=== PATIENT | male | born 1930 | race Hispanic/Latino ===

== ENCOUNTER 2019-01-25 19:59 | Inpatient (IN) | payer MEDICARE ==
[~2019-01-25 19:59] MED LIST: Piperacillin/Tazobact 3.375 gm 100 ML IVPB SCH
[2019-01-25 20:24] VITALS: BMI 22.3
[2019-01-25 21:08] LABS: ALB/GLOB RATIO 0.8 (1.1-1.8); ALBUMIN 3.2 g/dL (3.0-4.8); ALT/SGPT 14 U/L (7-56); AST/SGOT 30 U/L (17-59); BLOOD UREA NITROGEN 106 mg/dL (7-21); CALCIUM 9.4 mg/dL (8.4-10.5); GFR NON-AFRICAN AMERICAN > 60
[2019-01-25 21:13] LABS: BASO # 0.02 K/mm3 (0.0-2.0); BASO % 0.1 % (0.0-3.0); HEMOGLOBIN 8.6 g/dL (14.0-18.0); LYMPH # 1.3 (1.2-3.4); LYMPH % 4.7 % (22.0-35.0); MEAN CELL VOLUME 99.3 fl (80.0-105.0); MEAN CORPUSCULAR HEMOGLOBIN 32.2 pg (25.0-35.0); MEAN CORPUSCULAR HGB CONC 32.5 g/dl (31.0-37.0); MEAN PLATELET VOLUME 9.1 fl (7.0-11.0); MONO # 1.2 (0.1-0.6); MONO % 4.7 % (1.0-6.0); PLATELET COUNT 403 10^3/uL (120.0-450.0); RBC 2.67 10^6/uL (3.5-6.1); RED CELL DISTRIBUTION WIDTH 14.8 % (11.5-14.5); URINE BILIRUBIN NEGATIVE (NEGATIVE); URINE BLOOD NEGATIVE (NEGATIVE); URINE GLUCOSE (UA) NEGATIVE (NEGATIVE); URINE LEUKOCYTE ESTERASE NEGATIVE Leu/uL (NEGATIVE); URINE PROTEIN NEGATIVE mg/dL (<30 mg/dL); URINE UROBILINOGEN 0.2 E.U./dL (<1 E.U./dL)
[2019-01-25 21:16] LABS: URINE APPEARANCE CLEAR (CLEAR); URINE COLOR LIGHT YELLOW (YELLOW)
[2019-01-25 21:17] LABS: INR 1.33; PARTIAL THROMBOPLASTIN TIME 36.5 Seconds (26.9-38.3); PROTHROMBIN TIME 14.8 SECONDS (9.4-12.5)
[2019-01-25 21:18] LABS: WHITE BLOOD COUNT 26.5 10^3/uL (4.5-11.0)
[2019-01-25 21:20] LABS: TROPONIN I 0.02 ng/mL
--- NOTE | 2019-01-25 21:29 | ED PDOC ---
Arrival/HPI - General Chief Complaint: GI Problem Time Seen by Provider: 01/25/19 20:15 Historian: [facility] - History of Present Illness Narrative History of Present Illness (Text): 01/25/19 20:20 Luisito Mays is an 88 year old male, whose past medical history includes dysphagia s/p PEG tube, CVA, atrial fibrillation, CAD, hypertension, COPD, BPH, hypothyroidism, seizures, and depression, who presents to the ED transferred from skilled nursing for dark residual from PEG tube. As per skilled nursing, patient had dark gastric residual from his PEG tube and shortness of breath. Limited HPI and ROS secondary to patient's acuity of condition/dementia.Patient with DNR/DNI status. Symptom Onset: Gradual Symptom Course: Unchanged Activities at Onset: Light Context: Home (skilled nursing) Past Medical History - Provider Review Nursing Documentation Reviewed: Yes - Infectious Disease Hx of Infectious Diseases: None - Cardiac Hx Cardiac Disorders: Yes Hx Atrial Fibrillation: Yes Hx Hypertension: Yes - Pulmonary Hx Respiratory Disorders: Yes Hx Chronic Obstructive Pulmonary Disease (COPD): Yes - Neurological Hx Neurological Disorder: Yes HX Cerebrovascular Accident: Yes Hx Dementia: Yes Hx Seizures: Yes Other/Comment: dysphagia - HEENT Hx HEENT Disorder: No - Renal Hx Renal Disorder: No - Endocrine/Metabolic Hx Endocrine Disorders: Yes Hx Hypothyroidism: Yes - Hematological/Oncological Hx Blood Disorders: No - Integumentary Hx Dermatological Disorder: No - Musculoskeletal/Rheumatological Hx Musculoskeletal Disorders: No - Gastrointestinal Hx Gastrointestinal Disorders: Yes Hx Bowel Surgery: Yes (PEG tube) HX Swallowing Problems: Yes (dysphagia) - Genitourinary/Gynecological Hx Genitourinary Disorders: Yes - Psychiatric Hx Psychophysiologic Disorder: Yes Hx Depression: Yes Hx Substance Use: No - Surgical History Other/Comment: PEG tube - Anesthesia Hx Anesthesia: Yes Hx Anesthesia Reactions: No Hx Malignant Hyperthermia: No Family/Social History - Physician Review Nursing Documentation Reviewed: Yes Family/Social History: Unknown Family HX Smoking Status: Unknown If Ever Smoked Hx Alcohol Use: No Hx Substance Use: No Allergies/Home Meds Allergies/Adverse Reactions: Allergies No Known Allergies Allergy (Unverified 01/25/19 20:23) Home Medications: Home Meds Medication Instructions Recorded Confirmed Unobtainable 01/25/19 01/25/19 Review of Systems - Review of Systems Systems not reviewed;Unavailable: Acuity of Condition Respiratory: SOB Physical Exam Vital Signs Reviewed: Yes Vital Signs Temp Pulse Resp BP Pulse Ox 01/25/19 20:10 99.7 F H 115 H 18 82/42 L 95 Temperature: Febrile Blood Pressure: Hypotensive Pulse: Tachycardic Pain Distress: None Mental Status: Positive for: Lethargic - Systems Exam Head: Present: Atraumatic, Normocephalic Pupils: Present: PERRL Ears: Present: Normal Mouth: Present: Dry Pharnyx: Present: Normal Nose (External): Present: Atraumatic Neck: Present: Normal Range of Motion. No: Meningeal Signs Respiratory/Chest: Present: Rhonchi Cardiovascular: Present: Tachycardic Abdomen: Present: Normal Bowel Sounds, Other (PEG tune in place/clear,no dark contents noted). No: Tenderness, Distention, Peritoneal Signs, Rebound, Guarding Upper Extremity: Present: Normal Inspection. No: Cyanosis, Edema Lower Extremity: Present: Normal Inspection. No: Edema Medical Decision Making ED Course and Treatment: 01/25/19 20:20 Impression: 88 year old male sent from skilled nursing for dark residual from PEG tube and shortness of breath. Plan: -- EKG -- Chest X-ray -- Labs, cardiac enzymes, VBG, blood cultures -- Urinalysis, urine cultures -- Lactated Ringer's -- Reassess and disposition Progress Notes: Reviewed EKG, accelerated junctional rhythm at 115 bpm. Incomplete RBBB. Non- specific ST changes. 01/25/19 20:[address] Espinosa, who is aware and agrees with plan. Accepts pt in to his service. Requests ICU consult. 01/25/19 21:22 Labs reviewed, WBC: 26.5. Pt tachycardic, hypotensive. Code Sepsis called. 01/25/19 21:30 Case discussed with biomedical engineering director stationary engineer apprentice, who is aware and agrees with plan. 01/25/19 21:[address] Seals, patternator, who agrees to evaluate pt for ICU admission. 01/25/19 22:[address] Seals presej in ED to evaluate pt. Pt will be admitted to the ICU for sepsis and hypotension. 01/25/19 22:30 Chest X-ray: LUNGS: Air space opacity is seen in the mid-lower lung arnold bilaterally compatible with extensive bilateral pneumonia. PLEURAL SPACES: No evidence of pleural effusion or pneumothorax. MEDIASTINUM: The cardiomediastinal silhouette is within normal limits. A right dual-lead transvenous pacemaker device is present. Residual left pacemaker wires are noted as well. There is atheromatous plaquing seen within the aortic arch. BONES: No acute osseous abnormality. IMPRESSION: 1. Extensive bilateral pneumonia. 2. A dual-lead right transvenous pacemaker device is present. Residual left pacemaker wires are noted. Electronically signed on Jan 25, 2019 10:25:44 PM EDT by: Jones Joiner M.D., M.B.A., Certified By [employer] Trained MRI and CT Specialis - Critical Care Critical Care Minutes: 30 minutes - Lab Interpretations Lab Results: PT 14.8 SECONDS (9.4-12.5) H 01/25/19 20:40 INR 1.33 01/25/19 20:40 APTT 36.5 Seconds (26.9-38.3) 01/25/19 20:40 Troponin I 0.02 ng/mL 01/25/19 20:40 Total Bilirubin 0.4 mg/dL (0.2-1.3) 01/25/19 20:40 AST 30 U/L (17-59) 01/25/19 20:40 ALT 14 U/L (7-56) 01/25/19 20:40 Alkaline Phosphatase 53 U/L (38-126) 01/25/19 20:40 Total Protein 7.1 g/dL (5.8-8.3) 01/25/19 20:40 Albumin 3.2 g/dL (3.0-4.8) 01/25/19 20:40 Globulin 3.8 gm/dL 01/25/19 20:40 Albumin/Globulin Ratio 0.8 (1.1-1.8) L 01/25/19 20:40 Urine Color Light yellow (YELLOW) 01/25/19 20:40 Urine Appearance Clear (CLEAR) 01/25/19 20:40 Urine pH 7.0 (4.7-8.0) 01/25/19 20:40 Ur Specific [place] 1.010 (1.005-1.035) 01/25/19 20:40 Urine Protein Negative mg/dL (<30 mg/dL) 01/25/19 20:40 Urine Glucose (UA) Negative mg/dL (NEGATIVE) 01/25/19 20:40 Urine Ketones Negative mg/dL (NEGATIVE) 01/25/19 20:40 Urine Blood Negative (NEGATIVE) 01/25/19 20:40 Urine Nitrate Negative (NEGATIVE) 01/25/19 20:40 Urine Bilirubin Negative (NEGATIVE) 01/25/19 20:40 Urine Urobilinogen 0.2 E.U./dL (<1 E.U./dL) 01/25/19 20:40 Ur Leukocyte Esterase Negative Jacey/uL (NEGATIVE) 01/25/19 20:40 I have reviewed the lab results: Yes - RAD Interpretation Radiology Orders: 01/25/19 20:24 CHEST PORTABLE [RAD] Stat Operations Vice President: Radiologist - EKG Interpretation Interpreted by ED Physician: Yes Type: 12 lead EKG - Medication Orders Current Medication Orders: Discontinued Medications Lactated Ringer's 2,180 ml/ IV (SUPPLIES) 2,180 mls @ 4,354.5 mls/hr IV ONCE ONE Stop: 01/25/19 20:54 Last Admin: 01/25/19 20:45 Dose: 4,354.5 mls/hr eMAR Start Stop Document 01/25/19 20:45 JOL (Rec: 01/25/19 21:24 JOL [id number]) Intravenous Solution Start Date 01/25/19 Start Time 20:45 End Date 01/25/19 End time 21:45 Total Infusion Time 60 - Scribe Statement The provider has reviewed the documentation as recorded by the Turner Strange Provider Scribe Attestation: All medical record entries made by the Turner were at my direction and personally dictated by me. I have reviewed the chart and agree that the record accurately reflects my personal performance of the history, physical exam, medical decision making, and the department course for this patient. I have also personally directed, reviewed, and agree with the discharge instructions and disposition. Disposition/Present on Arrival - Present on Arrival Any Indicators Present on Arrival: No History of DVT/PE: No History of Uncontrolled Diabetes: No Urinary Catheter: No History of Decub. Ulcer: Yes History Surgical Site Infection Following: None - Disposition Have Diagnosis and Disposition been Completed?: Yes Diagnosis: Sepsis, Hypotension, Pneumonia Disposition: HOSPITALIZED Disposition Time: 22:17 Patient Plan: Admission Patient Problems: Current Active Problems Problem Status Onset Hypotension Acute Pneumonia Acute Sepsis Acute Condition: GUARDED
[2019-01-25] MEDS ORDERED: Piperacill/Tazo 4.5gm in NS 4.5 GM/100 ML BAG IVPB STA (21:32)
[2019-01-25] MEDS ORDERED: Vancomycin 1gm in NS 250ml 1 GM/250 ML BAG IVPB STA (21:32)
[2019-01-25] MEDS ORDERED: Albuterol-Ipratrop 3 mg / 0.5 (3 ml) UD IH STA (21:35)
[2019-01-25] MEDS ORDERED: Albuterol-Ipratrop 3 mg / 0.5 (3 ml) UD ONE (21:38)
[2019-01-25] MEDS ORDERED: Sodium Chloride 0.9% 1,000 ML IV SCH (22:15)
[2019-01-25 22:26] LABS: BAND 9 % (0-2); LYMPHOCYTE 7 % (22.0-35.0); MONOCYTE 3 % (1.0-6.0); NEUTROPHIL 81 % (50.0-70.0)
[2019-01-25 22:27] LABS: PLATELET ESTIMATE NORMAL (NORMAL)
--- NOTE | 2019-01-25 22:28 | CP.PCM.CON ---
<Marquis Clark - Last Filed: 01/26/19 00:18> History of Present Illness - History of Present Illness History of Present Illness: Marquis Clark DO, PGY-2: ICU Consult Note for Dr. Seals 88 year old male with a past medical history of dementia, dysphagia, atrial fibrillation, sacral ulcer who was brought in from [facility] because of coffee ground substance derived from PEG tube. Patient is non-verbal at baseline. History was provided by ER nurse who spoke with son. The patient's mcfp medications are not with him also. The patient is arousable to touch and appears pale. Labs are notable for a white count of 26,000 and a hemoglobin of 8.6. He is DNR/DNI status. ICU was consulted for septic shock, likely from hemorrhage and infection. At the time of my examination, the patient is not responsive, but his baseline mental status is apparently unchanged. The son reportedly stated he looks, "more sleepy than usual." Otherwise, a 12 point ROS is unobtainable secondary to the patient's dementia and non-verbal status. PMH: atrial fibrillation, dementia, dysphagia, failure to thrive, sacral ulcer PSH: Unknown Allergies: NKA Social: Unknown Review of Systems - Review of Systems All systems: reviewed and no additional remarkable complaints except (as per HPI) Past Patient History - Infectious Disease Hx of Infectious Diseases: None - Past Social History Smoking Status: Unknown If Ever Smoked - CARDIAC Hx Cardiac Disorders: Yes Hx Atrial Fibrillation: Yes Hx Hypertension: Yes - PULMONARY Hx Respiratory Disorders: Yes Hx Chronic Obstructive Pulmonary Disease (COPD): Yes - NEUROLOGICAL Hx Neurological Disorder: Yes HX Cerebrovascular Accident: Yes Hx Dementia: Yes Hx Seizures: Yes Other/Comment: dysphagia - HEENT Hx HEENT Problems: No - RENAL Hx Chronic Kidney Disease: No - ENDOCRINE/METABOLIC Hx Endocrine Disorders: Yes Hx Hypothyroidism: Yes - HEMATOLOGICAL/ONCOLOGICAL Hx Blood Disorders: No - INTEGUMENTARY Hx Dermatological Problems: No - MUSCULOSKELETAL/RHEUMATOLOGICAL Hx Musculoskeletal Disorders: No - GASTROINTESTINAL Hx Gastrointestinal Disorders: Yes Hx Bowel Surgery: Yes (PEG tube) HX Swallowing Problems: Yes (dysphagia) - GENITOURINARY/GYNECOLOGICAL Hx Genitourinary Disorders: Yes - PSYCHIATRIC Hx Psychophysiologic Disorder: Yes Hx Depression: Yes Hx Substance Use: No - SURGICAL HISTORY Other/Comment: PEG tube - ANESTHESIA Hx Anesthesia: Yes Hx Anesthesia Reactions: No Hx Malignant Hyperthermia: No Meds Allergies/Adverse Reactions: Allergies Allergy/AdvReac Type Severity Reaction Status Date / Time No Known Allergies Allergy Unverified 01/25/19 20:23 - Medications Medications: Current Medications Vancomycin HCl (Vancomycin 1gm) 1 gm in 250 mls @ 167 mls/hr IVPB STAT STA; Protocol Stop: 01/25/19 23:01 Last Admin: 01/25/19 21:58 Dose: 167 mls/hr Sodium Chloride (Sodium Chloride 0.45%) 1,000 mls @ 60 mls/hr IV .[id number] RICCO Sodium Chloride (Sodium Chloride 0.9%) 1,000 mls @ 50 mls/hr IV .Q20H RICCO Vancomycin HCl (Vancomycin 1gm) 1 gm in 250 mls @ 167 mls/hr IVPB DAILY RICCO; Protocol Piperacillin Sod/Tazobactam Sod (Zosyn 3.375 In Ns 100ml) 100 mls @ 25 mls/hr IVPB Q8 RICCO; Protocol Stop: 01/26/19 17:59 Levalbuterol HCl (Xopenex) 1.25 mg IH [id number] RICCO Pantoprazole Sodium (Protonix Inj) 40 mg IVP Q12 RICCO Physical Exam - Constitutional Appears: Chronically Ill - Head Exam Head Exam: ATRAUMATIC, NORMOCEPHALIC Additional comments: temporal wasting noted - Eye Exam Eye Exam: EOMI, Normal appearance - ENT Exam ENT Exam: Mucous Membranes Dry - Neck Exam Neck exam: Positive for: Normal Inspection - Respiratory Exam Respiratory Exam: Rales (some), NORMAL BREATHING PATTERN - Cardiovascular Exam Cardiovascular Exam: Tachycardia, +S1, +S2 - GI/Abdominal Exam GI & Abdominal Exam: Distended (mildly). absent: Rebound, Rigid - Extremities Exam Extremities exam: Positive for: normal inspection. Negative for: calf tenderness - Neurological Exam Additional comments: demented - Psychiatric Exam Psychiatric exam: Normal Affect, Normal Mood - Skin Skin Exam: Pallor Results - Vital Signs Recent Vital Signs: Last Vital Signs Temp 99.7 F H 01/25/19 20:10 Pulse 115 H 01/25/19 20:10 Resp 18 01/25/19 20:10 BP 82/42 L 01/25/19 20:10 Pulse Ox 95 01/25/19 20:10 - Labs Result Diagrams: 01/25/19 20:40 01/25/19 20:40 Labs: Laboratory Results - last 24 hr 01/25/19 01/25/19 01/25/19 20:40 20:40 20:40 WBC 26.5 H* RBC 2.67 L Hgb 8.6 L Hct 26.5 L MCV 99.3 MCH 32.2 MCHC 32.5 RDW 14.8 H Plt Count 403 MPV 9.1 Neut % (Auto) 90.5 H Lymph % (Auto) 4.7 L [place] % (Auto) 4.7 Eos % (Auto) 0.0 L Baso % (Auto) 0.1 Lymph # (Auto) 1.3 [place] # (Auto) 1.2 H Eos # (Auto) 0.0 Baso # (Auto) 0.02 Absolute Neuts (auto) 24.02 H PT 14.8 H INR 1.33 APTT 36.5 Sodium Potassium Chloride Carbon Dioxide Anion Gap BUN Creatinine Est GFR ( Amer) Est GFR (Non-Af Amer) Random Glucose Calcium Total Bilirubin AST ALT Alkaline Phosphatase Lactate Dehydrogenase Total Creatine Kinase Troponin I Total Protein Albumin Globulin Albumin/Globulin Ratio Urine Color Light yellow Urine Appearance Clear Urine pH 7.0 Ur Specific [place] 1.010 Urine Protein Negative Urine Glucose (UA) Negative Urine Ketones Negative Urine Blood Negative Urine Nitrate Negative Urine Bilirubin Negative Urine Urobilinogen 0.2 Ur Leukocyte Esterase Negative 01/25/19 20:40 WBC RBC Hgb Hct MCV MCH MCHC RDW Plt Count MPV Neut % (Auto) Lymph % (Auto) [place] % (Auto) Eos % (Auto) Baso % (Auto) Lymph # (Auto) [place] # (Auto) Eos # (Auto) Baso # (Auto) Absolute Neuts (auto) PT INR APTT Sodium 134 Potassium 4.6 Chloride 98 Carbon Dioxide 26 Anion Gap 15 BUN 106 H Creatinine 1.1 Est GFR ( Amer) > 60 Est GFR (Non-Af Amer) > 60 Random Glucose 136 H Calcium 9.4 Total Bilirubin 0.4 AST 30 ALT 14 Alkaline Phosphatase 53 Lactate Dehydrogenase 292 L Total Creatine Kinase < 20 L Troponin I 0.02 Total Protein 7.1 Albumin 3.2 Globulin 3.8 Albumin/Globulin Ratio 0.8 L Urine Color Urine Appearance Urine pH Ur Specific [place] Urine Protein Urine Glucose (UA) Urine Ketones Urine Blood Urine Nitrate Urine Bilirubin Urine Urobilinogen Ur Leukocyte Esterase Assessment & Plan - Assessment and Plan (Free Text) Assessment: 88 year old male with a past medical history of atrial fibrillation, dementia, dysphagia s/p PEG tube, COPD, and sacral ulcer who [place] [facility] [place] with coffee ground substances coming from PEG tube. In the ED patient was noted to have a WBC of 26,000 and hypotension despite being given 30 ml/kg of fluids. ICU was consulted for managing the patient septic shock likely secondary to underlying infection and/or hemorrhage from GI source. 1) GI bleeding - Protonix 40 mg q12h - NPO - GI consulted, Dr. Selby - NS 60 mls/hr 2) Septic Shock - CVC line to be placed in order to administer Norepinephrine with target MAP above 65 - Continue with fluids at 60 mls/hr - Broad spectrum antibiotics with Vancomycin and Zosyn - Infectious Disease consulted - Chest X-ray reports extensive bilateral pneumonia - Urine, blood cultures, and wound culture from sacral wound - Procalcitonin ordered 3) COPD - Levalbuterol q6h and Atrovent q6h - Venti mask with target SpO2 of 92% 4) DVT/GI prophylaxis - SCD - Protonix 40 mg IVP q12h Case was reviewed and discussed with attending physician, Dr. Seals <Jeffery Seals - Last Filed: 01/26/19 06:12> Meds - Medications Medications: Current Medications Sodium Chloride (Sodium Chloride 0.45%) 1,000 mls @ 60 mls/hr IV .[id number] RICCO Last Admin: 01/26/19 00:14 Dose: 60 mls/hr Vancomycin HCl (Vancomycin 1gm) 1 gm in 250 mls @ 167 mls/hr IVPB DAILY RICCO; Protocol Piperacillin Sod/Tazobactam Sod (Zosyn 3.375 In Ns 100ml) 100 mls @ 25 mls/hr IVPB Q8 RICCO; Protocol Stop: 01/26/19 17:59 Last Admin: 01/26/19 05:04 Dose: 25 mls/hr NOREPINEPHRINE BIT/0.9 % NACL (Levophed 4 Mg/ 250 Ml Ns Premixed) 4 mg in 250 mls @ 15 mls/hr IV .[id number] PRN; Protocol PRN Reason: TITRATE PER MD ORDER Last Admin: 01/26/19 05:03 Dose: 14 mcg/min, 52.5 mls/hr Pantoprazole Sodium (Protonix 40mg Ivpb) 40 mg in 100 mls @ 20 mls/hr IVPB .Q5H [facility] Last Admin: 01/26/19 05:02 Dose: 20 mls/hr Ipratropium [place] (Atrovent) 0.5 mg IH [id number] [facility] Last Admin: 01/26/19 02:41 Dose: 0.5 mg Levalbuterol HCl (Xopenex) 1.25 mg IH [id number] [facility] Last Admin: 01/26/19 02:41 Dose: 1.25 mg Results - Vital Signs Recent Vital Signs: Last Vital Signs Temp 97.6 F 01/25/19 23:15 Pulse 95 H 01/26/19 03:00 Resp 22 01/26/19 03:00 BP 89/54 L 01/26/19 03:00 Pulse Ox 100 01/26/19 03:00 - Labs Result Diagrams: 01/25/19 23:55 01/25/19 20:40 Labs: Laboratory Results - last 24 hr 01/25/19 01/25/19 01/25/19 20:40 20:40 20:40 WBC 26.5 H* RBC 2.67 L Hgb 8.6 L Hct 26.5 L MCV 99.3 MCH 32.2 MCHC 32.5 RDW 14.8 H Plt Count 403 MPV 9.1 Neut % (Auto) 90.5 H Lymph % (Auto) 4.7 L [place] % (Auto) 4.7 Eos % (Auto) 0.0 L Baso % (Auto) 0.1 Lymph # (Auto) 1.3 [place] # (Auto) 1.2 H Eos # (Auto) 0.0 Baso # (Auto) 0.02 Absolute Neuts (auto) 24.02 H Neutrophils % (Manual) 81 H Band Neutrophils % 9 H Lymphocytes % (Manual) 7 L Monocytes % (Manual) 3 Platelet Evaluation Normal PT 14.8 H INR 1.33 APTT 36.5 pO2 VBG pH VBG pCO2 VBG HCO3 VBG Total CO2 VBG O2 Sat (Calc) VBG Base Excess VBG Potassium Glucose Lactate FiO2 Crit Value Called To Crit Value Called By Blood Gas Notified Time Sodium Potassium Chloride Carbon Dioxide Anion Gap BUN Creatinine Est GFR ( Amer) Est GFR (Non-Af Amer) Random Glucose Calcium Total Bilirubin AST ALT Alkaline Phosphatase Lactate Dehydrogenase Total Creatine Kinase Troponin I Total Protein Albumin Globulin Albumin/Globulin Ratio Venous Blood Potassium Urine Color Light yellow Urine Appearance Clear Urine pH 7.0 Ur Specific [place] 1.010 Urine Protein Negative Urine Glucose (UA) Negative Urine Ketones Negative Urine Blood Negative Urine Nitrate Negative Urine Bilirubin Negative Urine Urobilinogen 0.2 Ur Leukocyte Esterase Negative Urine RBC Urine WBC Ur Epithelial Cells Urine Bacteria Blood Type Blood Type Confirm Antibody Screen Crossmatch BBK History Checked 01/25/19 01/25/19 01/25/19 20:40 21:02 22:50 WBC RBC Hgb Hct MCV MCH MCHC RDW Plt Count MPV Neut % (Auto) Lymph % (Auto) [place] % (Auto) Eos % (Auto) Baso % (Auto) Lymph # (Auto) [place] # (Auto) Eos # (Auto) Baso # (Auto) Absolute Neuts (auto) Neutrophils % (Manual) Band Neutrophils % Lymphocytes % (Manual) Monocytes % (Manual) Platelet Evaluation PT INR APTT pO2 27 L VBG pH 7.40 VBG pCO2 46.0 VBG HCO3 28.5 H VBG Total CO2 29.9 H VBG O2 Sat (Calc) 56.1 VBG Base Excess 3.0 H VBG Potassium 4.6 Glucose 142 H Lactate 3.9 H FiO2 21.0 Crit Value Called To Alexandra Crit Value Called By Ck-drapery supervisor Blood Gas Notified Time 2126 Sodium 134 134.0 Potassium 4.6 Chloride 98 100.0 Carbon Dioxide 26 Anion Gap 15 BUN 106 H Creatinine 1.1 Est GFR ( Amer) > 60 Est GFR (Non-Af Amer) > 60 Random Glucose 136 H Calcium 9.4 Total Bilirubin 0.4 AST 30 ALT 14 Alkaline Phosphatase 53 Lactate Dehydrogenase 292 L Total Creatine Kinase < 20 L Troponin I 0.02 Total Protein 7.1 Albumin 3.2 Globulin 3.8 Albumin/Globulin Ratio 0.8 L Venous Blood Potassium 4.6 Urine Color Urine Appearance Urine pH Ur Specific [place] Urine Protein Urine Glucose (UA) Urine Ketones Urine Blood Urine Nitrate Urine Bilirubin Urine Urobilinogen Ur Leukocyte Esterase Urine RBC Urine WBC Ur Epithelial Cells Urine Bacteria Blood Type A POSITIVE Blood Type Confirm Antibody Screen Negative Crossmatch See Detail BBK History Checked No verified bt 01/25/19 01/25/1901/25/19 23:20 23:55 23:55 WBC 21.0 H D RBC 2.47 L Hgb 7.9 L Hct 24.6 L MCV 99.6 MCH 32.0 MCHC 32.1 RDW 14.8 H Plt Count 316 MPV 8.9 Neut % (Auto) Lymph % (Auto) [place] % (Auto) Eos % (Auto) Baso % (Auto) Lymph # (Auto) [place] # (Auto) Eos # (Auto) Baso # (Auto) Absolute Neuts (auto) Neutrophils % (Manual) Band Neutrophils % Lymphocytes % (Manual) Monocytes % (Manual) Platelet Evaluation PT INR APTT pO2 VBG pH VBG pCO2 VBG HCO3 VBG Total CO2 VBG O2 Sat (Calc) VBG Base Excess VBG Potassium Glucose Lactate FiO2 Crit Value Called To Crit Value Called By Blood Gas Notified Time Sodium Potassium Chloride Carbon Dioxide Anion Gap BUN Creatinine Est GFR ( Amer) Est GFR (Non-Af Amer) Random Glucose Calcium Total Bilirubin AST ALT Alkaline Phosphatase Lactate Dehydrogenase Total Creatine Kinase Troponin I Total Protein Albumin Globulin Albumin/Globulin Ratio Venous Blood Potassium Urine Color Brown Urine Appearance Turbid Urine pH 6.0 Ur Specific [place] 1.010 Urine Protein Trace H Urine Glucose (UA) Negative Urine Ketones Negative Urine Blood Negative Urine Nitrate Negative Urine Bilirubin Negative Urine Urobilinogen 0.2 Ur Leukocyte Esterase Moderate H Urine RBC 0 - 2 Urine WBC 5 - 10 H Ur Epithelial Cells 0 - 2 Urine Bacteria Mod Blood Type Blood Type Confirm A POSITIVE Antibody Screen Crossmatch BBK History Checked 01/26/19 00:05 WBC RBC Hgb Hct MCV MCH MCHC RDW Plt Count MPV Neut % (Auto) Lymph % (Auto) [place] % (Auto) Eos % (Auto) Baso % (Auto) Lymph # (Auto) [place] # (Auto) Eos # (Auto) Baso # (Auto) Absolute Neuts (auto) Neutrophils % (Manual) Band Neutrophils % Lymphocytes % (Manual) Monocytes % (Manual) Platelet Evaluation PT INR APTT pO2 32 VBG pH 7.31 L VBG pCO2 52.0 VBG HCO3 26.2 VBG Total CO2 27.8 VBG O2 Sat (Calc) 51.8 VBG Base Excess -0.8 L VBG Potassium 4.4 Glucose 156 H Lactate 3.4 H FiO2 21.0 Crit Value Called To Evangelista murray gas furnace installer Crit Value Called By Mando Blood Gas Notified Time 40 Sodium 137.0 Potassium Chloride 102.0 Carbon Dioxide Anion Gap BUN Creatinine Est GFR ( Amer) Est GFR (Non-Af Amer) Random Glucose Calcium Total Bilirubin AST ALT Alkaline Phosphatase Lactate Dehydrogenase Total Creatine Kinase Troponin I Total Protein Albumin Globulin Albumin/Globulin Ratio Venous Blood Potassium 4.4 Urine Color Urine Appearance Urine pH Ur Specific [place] Urine Protein Urine Glucose (UA) Urine Ketones Urine Blood Urine Nitrate Urine Bilirubin Urine Urobilinogen Ur Leukocyte Esterase Urine RBC Urine WBC Ur Epithelial Cells Urine Bacteria Blood Type Blood Type Confirm Antibody Screen Crossmatch BBK History Checked Attending/Attestation - Attestation I have personally seen and examined this patient.: Yes I have fully participated in the care of the patient.: Yes I have reviewed all pertinent clinical information: Yes Notes (Text): 01/26/19 06:09 Seen and examined. discussed with resident. Agree with note X CXR is more C/W CHF rather than PNA. Pt. is critically ill Septic shock UGIB: mgmt per GI Possible free air on AXR: mgmt per SX Possible Urinary retention GI contacted SX following tranfused 1 U PRBC, 1 Unit of platelets on protonix gtt on vancomycin and zosyn on levophed prognosis is guarded
[2019-01-25] MEDS ORDERED: NOREPINEPHRINE BIT/0.9 % NACL 4 MG/250 ML BAG IV ONE (23:17)
[2019-01-25 23:47] LABS: URINE BILIRUBIN NEGATIVE (NEGATIVE); URINE BLOOD NEGATIVE (NEGATIVE); URINE GLUCOSE (UA) NEGATIVE (NEGATIVE); URINE LEUKOCYTE ESTERASE MODERATE Leu/uL (NEGATIVE); URINE PROTEIN TRACE mg/dL (<30 mg/dL); URINE UROBILINOGEN 0.2 E.U./dL (<1 E.U./dL)
--- NOTE | 2019-01-25 23:51 | PCM.PROC ---
<Felicitas Christian - Last Filed: 01/25/19 23:48> Procedures Attestation:: I certify that I have explained the specified Operation(s) or Procedure(s), risks, benefits and reasonable alternatives to the Patient and/or other person responsible. The opportunity was given to ask questions and all questions answered - Central Line Placement Right Internal Jugular Triple Lumen Catheter Aseptic technique was employed throughout the procedure: Hand Hygiene done prior to procedure, Full sterile barriers (mask, hair cover, sterile gown, sterile gloves), Full body sterile drape, Chloraprep Antiseptic: 30 second prep for IJ or SC sites CVP Time Out Performed: Yes Pt. Placed on Pulse Ox Monitor: Yes Central Line Prep: Chlorhexidine-Alcohol Combination Local Anesthesia Used: Lidocaine 1% Amount of Anesthesia Used (mls): 3 Ultrasound Used for Placement: Yes Central Line Lumen Inserted: triple Central Line Length: 16 cm Post Procedure: Sutured in Place, Good Blood Return, All Ports Aspirated, Flushed, Capped, Sterile Dressing Applied Secured by: Securement device Post procedure dressing: Clear vapor permeable, Chlorhexidine disc (Biopatch) Post Procedure X-Ray: Yes Patient Tolerated Procedure: Well, No Complications Immediate Complications: None <Jeffery Seals - Last Filed: 01/26/19 06:00> Attending/Attestation - Attestation I have personally seen and examined this patient.: Yes I have fully participated in the care of the patient.: Yes I have reviewed all pertinent clinical information, including history, physical exam and plan: Yes
[2019-01-25 23:57] LABS: URINE APPEARANCE TURBID (CLEAR); URINE COLOR BROWN (YELLOW)
[2019-01-26] MEDS: NOREPINEPHRINE BIT/0.9 % NACL 4 MG/250 ML BAG IV PRN ×4 (00:13→21:11)
[2019-01-26] MEDS: Sodium Chloride 0.45% 1,000 ML IV SCH (00:14)
[2019-01-26 00:22] LABS: HEMOGLOBIN 7.9 g/dL (14.0-18.0); MEAN CELL VOLUME 99.6 fl (80.0-105.0); MEAN CORPUSCULAR HGB CONC 32.1 g/dl (31.0-37.0); MEAN PLATELET VOLUME 8.9 fl (7.0-11.0); RBC 2.47 10^6/uL (3.5-6.1); RED CELL DISTRIBUTION WIDTH 14.8 % (11.5-14.5)
[2019-01-26 00:29] LABS: VENOUS BLOOD GAS PO2 27 mm/Hg (30-55)
[2019-01-26 00:40] LABS: VENOUS BLOOD GAS BASE EXCESS -0.8 mmol/L (0.0-2.0); VENOUS BLOOD GAS PO2 32 mm/Hg (30-55); VENOUS BLOOD PH 7.31 (7.32-7.43)
--- NOTE | 2019-01-26 00:42 | CP.PCM.PN ---
Subjective - Date & Time of Evaluation Date of Evaluation: 01/26/19 Time of Evaluation: 00:28 - Subjective Subjective: Spoke with GI camp recreation specialist (Dr. Kumar) and informed her of dark blackish liquid coming out of PEG tube and hemoglobin dropping to 7.9. Recommended changing Protonix 40 IV BID to protonix gtt and tranfuse 2 U PRBC. Objective - Vital Signs/Intake and Output Vital Signs (last 24 hours): Temp Pulse Resp BP Pulse Ox 99.7 F H 98 H 24 82/49 L 100 01/25/19 20:10 01/25/19 22:15 01/25/19 22:15 01/25/19 22:15 01/25/19 22:15 - Medications Medications: Current Medications Sodium Chloride (Sodium Chloride 0.45%) 1,000 mls @ 60 mls/hr IV .[id number] [facility]CO Last Admin: 01/26/19 00:14 Dose: 60 mls/hr Vancomycin HCl (Vancomycin 1gm) 1 gm in 250 mls @ 167 mls/hr IVPB DAILY [facility]; Protocol Piperacillin Sod/Tazobactam Sod (Zosyn 3.375 In Ns 100ml) 100 mls @ 25 mls/hr IVPB Q8 [facility]CO; Protocol Stop: 01/26/19 17:59 NOREPINEPHRINE BIT/0.9 % NACL (Levophed 4 Mg/ 250 Ml Ns Premixed) 4 mg in 250 mls @ 15 mls/hr IV .[id number] PRN; Protocol PRN Reason: TITRATE PER MD ORDER Last Admin: 01/26/19 00:13 Dose: 4 mcg/min, 15 mls/hr Pantoprazole Sodium (Protonix 40mg Ivpb) 40 mg in 100 mls @ 20 mls/hr IVPB .Q5H R[facility]CO Ipratropium [place] (Atrovent) 0.5 mg IH [id number] RICCO Levalbuterol HCl (Xopenex) 1.25 mg IH [id number] [facility]CO Pantoprazole Sodium (Protonix Inj) 80 mg IVP STAT STA Stop: 01/26/19 00:32 - Labs Labs: 01/25/19 23:55 01/25/19 20:40 PT 14.8 SECONDS (9.4-12.5) H 01/25/19 20:40 INR 1.33 01/25/19 20:40 APTT 36.5 Seconds (26.9-38.3) 01/25/19 20:40
[2019-01-26] MEDS: Pantoprazole 40mg/100mL NS 40 MG/100 ML BAG IVPB SCH ×4 (00:53→14:54)
[2019-01-26 01:03] LABS: URINE BACTERIA MOD /hpf; URINE EPITHELIAL CELLS 0 - 2 /hpf (0-5); URINE RBC 0 - 2 /hpf (0-2)
--- NOTE | 2019-01-26 01:20 | CP.PCM.CON ---
History of Present Illness - History of Present Illness History of Present Illness: General surgery consult note for Dr. Catherine Christian, PGY-2 Pt seen/examined at bedside. History as per EMR due to dementia 88M w/PMH sig for CVA w/dysphagia s/p PEG tube consulted for GI bleed. Pt was transferred from assisted for dark residuals from PEG tube & SOB. As per documentation of family at bedside in ED, pt is at baseline, non verbal and minimally interactive. In ED pt was evaluated, found to be septic with resulting resuscitation and eventual initiation of pressors. G tube was placed to gravity with ~1L of coffee ground gastric contents out. Pt already started on therapeutic protonix. WBC 21 from 26, Hgb 7.9 from 8.6. ROS limited due to dementia. PMH: dysphagia/non verbal, CVA, Afib, CAD, HTN, COPD, BPH, Hypothyroidism, seizures, depression, sacral skin break down, failure to thrive PSH: PEG Tube. AICD. All:NKDA SH: From assisted. DNR/DNI. PMD: Dr. Espinosa Review of Systems - Review of Systems Systems not reviewed;Unavailable: Dementia Past Patient History - Infectious Disease Hx of Infectious Diseases: None - Past Social History Smoking Status: Unknown If Ever Smoked - CARDIAC Hx Cardiac Disorders: Yes Hx Atrial Fibrillation: Yes Hx Hypertension: Yes - PULMONARY Hx Respiratory Disorders: Yes Hx Chronic Obstructive Pulmonary Disease (COPD): Yes - NEUROLOGICAL Hx Neurological Disorder: Yes HX Cerebrovascular Accident: Yes Hx Dementia: Yes Hx Seizures: Yes Other/Comment: dysphagia - HEENT Hx HEENT Problems: No - RENAL Hx Chronic Kidney Disease: No - ENDOCRINE/METABOLIC Hx Endocrine Disorders: Yes Hx Hypothyroidism: Yes - HEMATOLOGICAL/ONCOLOGICAL Hx Blood Disorders: No - INTEGUMENTARY Hx Dermatological Problems: No - MUSCULOSKELETAL/RHEUMATOLOGICAL Hx Musculoskeletal Disorders: No - GASTROINTESTINAL Hx Gastrointestinal Disorders: Yes Hx Bowel Surgery: Yes (PEG tube) HX Swallowing Problems: Yes (dysphagia) - GENITOURINARY/GYNECOLOGICAL Hx Genitourinary Disorders: Yes - PSYCHIATRIC Hx Psychophysiologic Disorder: Yes Hx Depression: Yes Hx Substance Use: No - SURGICAL HISTORY Other/Comment: PEG tube - ANESTHESIA Hx Anesthesia: Yes Hx Anesthesia Reactions: No Hx Malignant Hyperthermia: No Meds Allergies/Adverse Reactions: Allergies Allergy/AdvReac Type Severity Reaction Status Date / Time No Known Allergies Allergy Unverified 01/25/19 20:23 - Medications Medications: Current Medications Sodium Chloride (Sodium Chloride 0.45%) 1,000 mls @ 60 mls/hr IV .[id number] RICCO Last Admin: 01/26/19 00:14 Dose: 60 mls/hr Vancomycin HCl (Vancomycin 1gm) 1 gm in 250 mls @ 167 mls/hr IVPB DAILY [facility]; Protocol Piperacillin Sod/Tazobactam Sod (Zosyn 3.375 In Ns 100ml) 100 mls @ 25 mls/hr IVPB Q8 R[facility]CO; Protocol Stop: 01/26/19 17:59 NOREPINEPHRINE BIT/0.9 % NACL (Levophed 4 Mg/ 250 Ml Ns Premixed) 4 mg in 250 mls @ 15 mls/hr IV .[id number] PRN; Protocol PRN Reason: TITRATE PER MD ORDER Last Titration: 01/26/19 01:00 Dose: 10 mcg/min, 37.5 mls/hr Pantoprazole Sodium (Protonix 40mg Ivpb) 40 mg in 100 mls @ 20 mls/hr IVPB .Q5H R[facility]CO Last Admin: 01/26/19 00:53 Dose: 20 mls/hr Ipratropium [place] (Atrovent) 0.5 mg IH [id number] RICCO Levalbuterol HCl (Xopenex) 1.25 mg IH [id number] [facility] Physical Exam - Constitutional Appears: Cachectic, Chronically Ill - Head Exam Head Exam: ATRAUMATIC, NORMAL INSPECTION, NORMOCEPHALIC - Eye Exam Eye Exam: EOMI, Normal appearance - ENT Exam ENT Exam: Mucous Membranes Dry - Neck Exam Additional comments: RIJ TLC in place - Respiratory Exam Respiratory Exam: NORMAL BREATHING PATTERN - Cardiovascular Exam Cardiovascular Exam: Tachycardia, +S1, +S2 - GI/Abdominal Exam GI & Abdominal Exam: Distended, Soft. absent: Firm, Guarding, Hernia Additional comments: Tympanic PEG tube in place with dressing- clean/dry/intact PEG tube to gravity with gaviria bag ~1L of dark coffee ground like gastric fluid - Rectal Exam Additional comments: Brown stool per rectum Sacral with superficial skin break down - Exam Additional comments: Gaviria bag in place with purulent urine output - Neurological Exam Neurological exam: Altered Additional comments: demented - Psychiatric Exam Additional comments: only makes groaning sounds - Skin Skin Exam: Dry, Pallor Results - Vital Signs Recent Vital Signs: Last Vital Signs Temp 99.7 F H 01/25/19 20:10 Pulse 98 H 01/25/19 22:15 Resp 24 01/25/19 22:15 BP 82/49 L 01/25/19 22:15 Pulse Ox 100 01/25/19 22:15 - Labs Result Diagrams: 01/25/19 23:55 01/25/19 20:40 Labs: Laboratory Results - last 24 hr 01/25/19 01/25/19 01/25/19 20:40 20:40 20:40 WBC 26.5 H* RBC 2.67 L Hgb 8.6 L Hct 26.5 L MCV 99.3 MCH 32.2 MCHC 32.5 RDW 14.8 H Plt Count 403 MPV 9.1 Neut % (Auto) 90.5 H Lymph % (Auto) 4.7 L Mitchell % (Auto) 4.7 Eos % (Auto) 0.0 L Baso % (Auto) 0.1 Lymph # (Auto) 1.3 Mitchell # (Auto) 1.2 H Eos # (Auto) 0.0 Baso # (Auto) 0.02 Absolute Neuts (auto) 24.02 H Neutrophils % (Manual) 81 H Band Neutrophils % 9 H Lymphocytes % (Manual) 7 L Monocytes % (Manual) 3 Platelet Evaluation Normal PT 14.8 H INR 1.33 APTT 36.5 pO2 VBG pH VBG pCO2 VBG HCO3 VBG Total CO2 VBG O2 Sat (Calc) VBG Base Excess VBG Potassium Glucose Lactate FiO2 Crit Value Called To Crit Value Called By Blood Gas Notified Time Sodium Potassium Chloride Carbon Dioxide Anion Gap BUN Creatinine Est GFR ( Amer) Est GFR (Non-Af Amer) Random Glucose Calcium Total Bilirubin AST ALT Alkaline Phosphatase Lactate Dehydrogenase Total Creatine Kinase Troponin I Total Protein Albumin Globulin Albumin/Globulin Ratio Venous Blood Potassium Urine Color Light yellow Urine Appearance Clear Urine pH 7.0 Ur Specific [place] 1.010 Urine Protein Negative Urine Glucose (UA) Negative Urine Ketones Negative Urine Blood Negative Urine Nitrate Negative Urine Bilirubin Negative Urine Urobilinogen 0.2 Ur Leukocyte Esterase Negative Urine RBC Urine WBC Ur Epithelial Cells Urine Bacteria Blood Type Antibody Screen BBK History Checked 01/25/19 01/25/19 01/25/19 20:40 21:02 22:50 WBC RBC Hgb Hct MCV MCH MCHC RDW Plt Count MPV Neut % (Auto) Lymph % (Auto) Mitchell % (Auto) Eos % (Auto) Baso % (Auto) Lymph # (Auto) Mitchell # (Auto) Eos # (Auto) Baso # (Auto) Absolute Neuts (auto) Neutrophils % (Manual) Band Neutrophils % Lymphocytes % (Manual) Monocytes % (Manual) Platelet Evaluation PT INR APTT pO2 27 L VBG pH 7.40 VBG pCO2 46.0 VBG HCO3 28.5 H VBG Total CO2 29.9 H VBG O2 Sat (Calc) 56.1 VBG Base Excess 3.0 H VBG Potassium 4.6 Glucose 142 H Lactate 3.9 H FiO2 21.0 Crit Value Called To Alexandra Crit Value Called By Ck-car lot attendant Blood Gas Notified Time 2126 Sodium 134 134.0 Potassium 4.6 Chloride 98 100.0 Carbon Dioxide 26 Anion Gap 15 BUN 106 H Creatinine 1.1 Est GFR ( Amer) > 60 Est GFR (Non-Af Amer) > 60 Random Glucose 136 H Calcium 9.4 Total Bilirubin 0.4 AST 30 ALT 14 Alkaline Phosphatase 53 Lactate Dehydrogenase 292 L Total Creatine Kinase < 20 L Troponin I 0.02 Total Protein 7.1 Albumin 3.2 Globulin 3.8 Albumin/Globulin Ratio 0.8 L Venous Blood Potassium 4.6 Urine Color Urine Appearance Urine pH Ur Specific [place] Urine Protein Urine Glucose (UA) Urine Ketones Urine Blood Urine Nitrate Urine Bilirubin Urine Urobilinogen Ur Leukocyte Esterase Urine RBC Urine WBC Ur Epithelial Cells Urine Bacteria Blood Type A POSITIVE Antibody Screen Negative BBK History Checked No verified bt 01/25/19 01/25/19 01/26/19 23:20 23:55 00:05 WBC 21.0 H D RBC 2.47 L Hgb 7.9 L Hct 24.6 L MCV 99.6 MCH 32.0 MCHC 32.1 RDW 14.8 H Plt Count 316 MPV 8.9 Neut % (Auto) Lymph % (Auto) Mitchell % (Auto) Eos % (Auto) Baso % (Auto) Lymph # (Auto) Mitchell # (Auto) Eos # (Auto) Baso # (Auto) Absolute Neuts (auto) Neutrophils % (Manual) Band Neutrophils % Lymphocytes % (Manual) Monocytes % (Manual) Platelet Evaluation PT INR APTT pO2 32 VBG pH 7.31 L VBG pCO2 52.0 VBG HCO3 26.2 VBG Total CO2 27.8 VBG O2 Sat (Calc) 51.8 VBG Base Excess -0.8 L VBG Potassium 4.4 Glucose 156 H Lactate 3.4 H FiO2 21.0 Crit Value Called To Evangelista murray harness brusher Crit Value Called By Mando Blood Gas Notified Time 40 Sodium 137.0 Potassium Chloride 102.0 Carbon Dioxide Anion Gap BUN Creatinine Est GFR ( Amer) Est GFR (Non-Af Amer) Random Glucose Calcium Total Bilirubin AST ALT Alkaline Phosphatase Lactate Dehydrogenase Total Creatine Kinase Troponin I Total Protein Albumin Globulin Albumin/Globulin Ratio Venous Blood Potassium 4.4 Urine Color Brown Urine Appearance Turbid Urine pH 6.0 Ur Specific [place] 1.010 Urine Protein Trace H Urine Glucose (UA) Negative Urine Ketones Negative Urine Blood Negative Urine Nitrate Negative Urine Bilirubin Negative Urine Urobilinogen 0.2 Ur Leukocyte Esterase Moderate H Urine RBC 0 - 2 Urine WBC 5 - 10 H Ur Epithelial Cells 0 - 2 Urine Bacteria Mod Blood Type Antibody Screen BBK History Checked Assessment & Plan - Assessment and Plan (Free Text) Assessment: 88M w/GI bleed in setting of sepsis and instability requiring pressor support Plan: Keep PEG tube to gravity for now Recommend GI consult Monitor PEG tube output Serial H/Hs Transfuse blood prn No current surgical intervention at this time Pt DNR/DNI, limited invasive procedures Will DW Dr. Robert Christian, PGY-2 - Date & Time Date: 01/26/19 Time: 01:18
[2019-01-26] MEDS: Levalbuterol 1.25 MG/3 ML Inhal Soln UD IH SCH ×4 (02:41→19:35)
[2019-01-26] MEDS: Ipratropium 0.02% Inhal Soln (0.5 mg/2.5 ml) UD IH SCH ×4 (02:41→19:35)
--- NOTE | 2019-01-26 05:00 | HP ---
DATE OF EXAM: 01/25/2019 HISTORY OF PRESENT ILLNESS: I got a call from the nurse this evening at [facility] that he was not feeling well. He had some coffee-ground into his feeding tube residuals. He was also more lethargic than usual. I told him to just send him to the [place] [facility] for his change in mentation and also the dark residual from his PEG tube. He has also a little bit shortness of breath. There is a change in his condition and mentation. I sent him here fours hours earlier and he was fine. He is an 88-year-old white man with past medical history of dysphagia status post PEG tube, CVA with right-sided weakness, atrial fibrillation, hypertension, COPD, BPH, hypothyroidism, seizures, depression and now possibility of sepsis, with atrial fibrillation, hypertension, COPD, CVA with right-sided weakness, dementia, seizures, dysphagia, hypothyroidism. No depression or substance abuse. PAST SURGICAL HISTORY: He has had PEG tube surgeries. FAMILY HISTORY: Unknown. SOCIAL HISTORY: No smoking. No drinking. No drugs. ALLERGIES: NO KNOW DRUG ALLERGIES. REVIEW OF SYSTEMS: He is out of his bed. He is a little short of breath. Dark brownish residuals of a PEG tube, otherwise clear . PHYSICAL EXAMINATION VITAL SIGNS: He has 98.7 temperature, 115 pulse, 18 respiratory rate, 82/42 blood pressure, and 95% O2 sat. GENERAL: He is tachycardic, hypertensive, and a little bit distressed, nonresponsive. HEENT: Head; atraumatic, normocephalic. He is kind of staring, not responding. Throat is dry. NECK: Supple. HEART: Regular, now is tachycardic. LUNGS: Decreased breath sounds bilaterally, poor inspiration. No wheezes. No rhonchi. No rales. ABDOMEN: Soft. Positive bowel sounds, decreased. He has a feeding tube. No apparent tenderness. EXTREMITIES: No edema. He has right-sided weakness secondary to his stroke. SKIN: As far as I could tell is intact. I do believe he has sacral ulcers 1 to 2. NEUROLOGIC: He is not alert at this time, . LABORATORY DATA: Sodium 134, potassium 4.6, BUN 106 which is elevated, creatinine 1.1, he is a little bit dry. GFR is greater than 60 though. Sugar is 136. Calcium is 9.4, total bili is 0.4, AST is 30, ALT is 14, alk phos is 53. Lactate dehydrogenase is 292. Creatine kinase is less than 40. Troponin I is 0.12. Total protein is 7.1. Albumin is 3.2. His INR is 1.33. White count is quite high at 26.5, his hemoglobin is low at 8.6, hematocrit is 26.5, and platelets are 430. Chest x-ray is pending. ASSESSMENT AND PLAN: We will start him on Zosyn IV and IV fluids. We will put him back on his medications tomorrow. He has one dose of vancomycin. I will check his labs tomorrow. He will have a consult with Infectious Disease. Hopefully he will improve and respond to treatment. He is clinically accepted. Art Espinosa DO MTDD
[2019-01-26] MEDS: Piperacillin/Tazobact 3.375 gm 100 ML IVPB SCH ×2 (05:04→13:28)
--- NOTE | 2019-01-26 05:51 | RAD ---
Date of service: 01/25/2019 HISTORY: Sepsis Patient COMPARISON: No prior. TECHNIQUE: 1 view obtained. FINDINGS: LUNGS: [id number] pulmonary vascular congestion and reticular opacities in the lungs noted. PLEURA: Suspicious for small right pleural effusion and pleural thickening. CARDIOVASCULAR: Atherosclerotic calcification noted at the aortic not Normal cardiac size. [id number] pulmonary vascular congestion. Right-sided pacemaker is seen in place. There are wires extending from the left chest to the heart also noted. OSSEOUS STRUCTURES: No significant abnormalities. VISUALIZED UPPER ABDOMEN: Dilated bowel loops in the upper abdomen are noted. OTHER FINDINGS: None. IMPRESSION: [id number] pulmonary vascular congestion and suspicious for right pleural effusion.
--- NOTE | 2019-01-26 05:56 | RAD ---
Date of service: 01/25/2019 HISTORY: f/u tlc COMPARISON: Comparison is made with the previous same-day exam TECHNIQUE: 1 view obtained. FINDINGS: LUNGS: No significant interval changes in the lungs noted since the previous exam. Diffuse reticular opacities more prominent at the mid and lower portion of the lungs are again noted likely represent pulmonary vascular congestion. Possible partial atelectasis of the right lung base. PLEURA: Suspicious for right pleural effusion. CARDIOVASCULAR: Atherosclerotic calcification at the aortic knob Normal cardiac size. Right-sided pacemaker is again seen in place. There is interval insertion of right-sided jugular line since the previous exam. OSSEOUS STRUCTURES: No significant interval changes. VISUALIZED UPPER ABDOMEN: Dilated air-filled bowel loops are again noted in the upper abdomen. OTHER FINDINGS: Interval insertion of right-sided jugular central line since the prior exam. Otherwise no interval changes. IMPRESSION: No active disease.
--- NOTE | 2019-01-26 05:58 | RAD ---
Date of service: 01/25/2019 HISTORY: r/o free air COMPARISON: None available. TECHNIQUE: 1 view obtained. FINDINGS: BOWEL: Moderately dilated air-filled bowel loops at mid and upper abdomen are noted. The possibility of small extraluminal free air is not totally excluded in this exam. Diffuse lucency is noted in the upper abdomen. BONES: Advanced degenerative changes and osteoporosis OTHER FINDINGS: None. IMPRESSION: Dilated air-filled bowel loops in the upper abdomen are noted. The possibility of small amount of free air is not totally excluded. If clinically warranted further evaluation by CT may be obtained.
[2019-01-26] MEDS ORDERED: Piperacillin/Tazobact 3.375 gm 100 ML IVPB SCH (06:00)
--- NOTE | 2019-01-26 07:29 | CP.CCUPN ---
<Osman Tipton - Last Filed: 01/26/19 11:08> CCU Subjective - Physician Review Events Since Last Encounter (Free Text): 01/26/19 07:24 pt transfused 1 unit pRBC overnight Subjective (Free Text): 01/26/19 07:27 Pt seen and examined, pt opens eyes to commands, does not respond, non verbal at baseline CCU Objective - Vital Signs / Intake & Output Vital Signs (Last 4 hours): Vital Signs Pulse Resp BP Pulse Ox 01/26/19 06:10 91 H 22 96 01/26/19 06:00 93 H 21 102/57 L 97 01/26/19 05:50 91 H 19 100 01/26/19 05:40 91 H 20 100 01/26/19 05:30 95 H 21 110/68 100 01/26/19 05:20 94 H 26 H 100 01/26/19 05:10 95 H 24 100 01/26/19 05:01 94 H 22 110/62 100 01/26/19 05:00 99 H 23 113/70 100 01/26/19 04:50 92 H 20 100 01/26/19 04:40 91 H 33 H 100 01/26/19 04:30 92 H 23 103/59 L 100 01/26/19 04:20 93 H 22 100 01/26/19 04:10 95 H 29 H 100 01/26/19 04:00 97 H 20 121/66 100 01/26/19 03:50 95 H 21 100 01/26/19 03:40 97 H 23 100 01/26/19 03:30 100 H 27 H 91/50 L 100 Intake and Output (Last 8hrs): Intake & Output 01/25/19 01/26/19 01/26/19 22:59 06:59 14:59 Intake Total 1815 Output Total 1400 Balance 415 Weight 160 lb Intake: IV 1290 0.5 ns 480 abx 100 levo 300 protonix 160 Blood Product 525 Output: Gastric Amount 900 Stomach 900 Urine 500 Urethral (Lucas) 500 Other: Voiding Method Indwelling Catheter - Physical Exam Head: Positive for: Atraumatic, Normocephalic Pupils: Positive for: PERRL Extroacular Muscles: Positive for: EOMI Ears: Positive for: Normal Mouth: Positive for: Moist Mucous Membranes Pharnyx: Positive for: Normal Nose (External): Positive for: Atraumatic Neck: Positive for: Normal Range of Motion. Negative for: Meningeal Signs Respiratory/Chest: Positive for: Clear to Auscultation, Good Air Exchange. Negative for: Respiratory Distress, Accessory Muscle Use, Wheezes, Decreased Breath Sounds Cardiovascular: Positive for: Regular Rate and Rhythm, Normal S1, S2, Peripheal Pulses Present. Negative for: Murmurs Abdomen: Positive for: Normal Bowel Sounds, Other (PEG tube in place). Negative for: Tenderness, Distention, Peritoneal Signs, Rebound, Guarding Upper Extremity: Positive for: Normal Inspection. Negative for: Cyanosis, Edema Lower Extremity: Positive for: Normal Inspection. Negative for: Edema Skin: Positive for: Normal Color - Medications Active Medications: Active Medications Generic Name Dose Route Start Last Admin Trade Name Freq PRN Reason Stop Dose Admin Sodium Chloride 1,000 mls @ 60 mls/hr 01/25/19 22:00 01/26/19 00:14 Sodium Chloride 0.45% IV 60 mls/hr .[id number] RICCO Administration Vancomycin HCl 1 gm in 250 mls @ 167 mls/hr 01/26/19 10:00 Vancomycin 1gm IVPB DAILY RICCO Protocol Piperacillin Sod/Tazobactam Sod 100 mls @ 25 mls/hr 01/26/19 06:00 01/26/19 05:04 Zosyn 3.375 In Ns 100ml IVPB 01/26/19 17:59 25 mls/hr Q8 RICCO Administration Protocol NOREPINEPHRINE BIT/0.9 % NACL 4 mg in 250 mls @ 15 mls/hr 01/25/19 23:44 01/26/19 05:03 Levophed 4 Mg/ 250 Ml Ns Premixed IV 14 mcg/min .[id number] PRN 52.5 mls/hr TITRATE PER MD ORDER Administration Protocol 4 MCG/MIN Pantoprazole Sodium 40 mg in 100 mls @ 20 mls/hr 01/26/19 00:30 01/26/19 05:02 Protonix 40mg Ivpb IVPB 20 mls/hr .Q5H RICCO Administration Ipratropium [place] 0.5 mg 01/26/19 02:00 01/26/19 02:41 Atrovent IH 0.5 mg [id number] RICCO Administration Levalbuterol HCl 1.25 mg 01/26/19 02:00 01/26/19 02:41 Xopenex IH 1.25 mg [id number] RICCO Administration - Patient Studies Lab Studies: Lab Studies 01/26/19 01/25/19 01/25/19 Range/Units 00:05 23:55 23:55 WBC 21.0 H D (4.5-11.0) 10^3/uL RBC 2.47 L (3.5-6.1) 10^6/uL Hgb 7.9 L (14.0-18.0) g/dL Hct 24.6 L (42.0-52.0) % MCV 99.6 (80.0-105.0) fl MCH 32.0 (25.0-35.0) pg MCHC 32.1 (31.0-37.0) g/dl RDW 14.8 H (11.5-14.5) % Plt Count 316 (120.0-450.0) 10^3/uL MPV 8.9 (7.0-11.0) fl Neut % (Auto) (50.0-68.0) % Lymph % (Auto) (22.0-35.0) % [place] % (Auto) (1.0-6.0) % Eos % (Auto) (1.5-5.0) % Baso % (Auto) (0.0-3.0) % Lymph # (Auto) (1.2-3.4) [place] # (Auto) (0.1-0.6) Eos # (Auto) (0.0-0.7) Baso # (Auto) (0.0-2.0) K/mm3 Absolute Neuts (auto) (1.4-6.5) Neutrophils % (Manual) (50.0-70.0) % Band Neutrophils % (0-2) % Lymphocytes % (Manual) (22.0-35.0) % Monocytes % (Manual) (1.0-6.0) % Platelet Evaluation (NORMAL) PT (9.4-12.5) SECONDS INR APTT (26.9-38.3) Seconds pO2 32 (30-55) mm/Hg VBG pH 7.31 L (7.32-7.43) VBG pCO2 52.0 (40-60) VBG HCO3 26.2 (21-28) mmol/l VBG Total CO2 27.8 (22-28) mmol.L VBG O2 Sat (Calc) 51.8 (40-65) % VBG Base Excess -0.8 L (0.0-2.0) mmol/L VBG Potassium 4.4 (3.6-5.2) mmol/L Glucose 156 H (75-110) mg/dl Lactate 3.4 H (0.7-2.1) mmol/L FiO2 21.0 % Crit Value Called To Evangelista murray internet developer Crit Value Called By [facility] Blood Gas Notified Time 40 Sodium 137.0 (132-148) mmol/L Potassium (3.6-5.0) mmol/L Chloride 102.0 (98-107) mmol/L Carbon Dioxide (21-33) mmol/L Anion Gap (10-20) BUN (7-21) mg/dL Creatinine (0.8-1.5) mg/dl Est GFR ( Amer) Est GFR (Non-Af Amer) Random Glucose (70-110) mg/dL Calcium (8.4-10.5) mg/dL Total Bilirubin (0.2-1.3) mg/dL AST (17-59) U/L ALT (7-56) U/L Alkaline Phosphatase (38-126) U/L Lactate Dehydrogenase (333-699) U/L Total Creatine Kinase (35-230) U/L Troponin I ng/mL Total Protein (5.8-8.3) g/dL Albumin (3.0-4.8) g/dL Globulin gm/dL Albumin/Globulin Ratio (1.1-1.8) Venous Blood Potassium 4.4 (3.6-5.2) mmol/L Urine Color (YELLOW) Urine Appearance (CLEAR) Urine pH (4.7-8.0) Ur Specific Royal (1.005-1.035) Urine Protein (<30 mg/dL) mg/dL Urine Glucose (UA) (NEGATIVE) mg/dL Urine Ketones (NEGATIVE) mg/dL Urine Blood (NEGATIVE) Urine Nitrate (NEGATIVE) Urine Bilirubin (NEGATIVE) Urine Urobilinogen (<1 E.U./dL) E.U./dL Ur Leukocyte Esterase (NEGATIVE) Jacey/uL Urine RBC (0-2) /hpf Urine WBC (0-6) /hpf Ur Epithelial Cells (0-5) /hpf Urine Bacteria (NONE) /hpf Blood Type Blood Type Confirm A POSITIVE Antibody Screen Crossmatch BBK History Checked 01/25/19 01/25/19 01/25/19 Range/Units 23:20 22:50 21:02 WBC (4.5-11.0) 10^3/uL RBC (3.5-6.1) 10^6/uL Hgb (14.0-18.0) g/dL Hct (42.0-52.0) % MCV (80.0-105.0) fl MCH (25.0-35.0) pg MCHC (31.0-37.0) g/dl RDW (11.5-14.5) % Plt Count (120.0-450.0) 10^3/uL MPV (7.0-11.0) fl Neut % (Auto) (50.0-68.0) % Lymph % (Auto) (22.0-35.0) % [place] % (Auto) (1.0-6.0) % Eos % (Auto) (1.5-5.0) % Baso % (Auto) (0.0-3.0) % Lymph # (Auto) (1.2-3.4) [place] # (Auto) (0.1-0.6) Eos # (Auto) (0.0-0.7) Baso # (Auto) (0.0-2.0) K/mm3 Absolute Neuts (auto) (1.4-6.5) Neutrophils % (Manual) (50.0-70.0) % Band Neutrophils % (0-2) % Lymphocytes % (Manual) (22.0-35.0) % Monocytes % (Manual) (1.0-6.0) % Platelet Evaluation (NORMAL) PT (9.4-12.5) SECONDS INR APTT (26.9-38.3) Seconds pO2 27 L (30-55) mm/Hg VBG pH 7.40 (7.32-7.43) VBG pCO2 46.0 (40-60) VBG HCO3 28.5 H (21-28) mmol/l VBG Total CO2 29.9 H (22-28) mmol.L VBG O2 Sat (Calc) 56.1 (40-65) % VBG Base Excess 3.0 H (0.0-2.0) mmol/L VBG Potassium 4.6 (3.6-5.2) mmol/L Glucose 142 H (75-110) mg/dl Lactate 3.9 H (0.7-2.1) mmol/L FiO2 21.0 % Crit Value Called To Alexandra Crit Value Called By Ck-nutrient management specialist Blood Gas Notified Time 2126 Sodium 134.0 (132-148) mmol/L Potassium (3.6-5.0) mmol/L Chloride 100.0 (98-107) mmol/L Carbon Dioxide (21-33) mmol/L Anion Gap (10-20) BUN (7-21) mg/dL Creatinine (0.8-1.5) mg/dl Est GFR ( Amer) Est GFR (Non-Af Amer) Random Glucose (70-110) mg/dL Calcium (8.4-10.5) mg/dL Total Bilirubin (0.2-1.3) mg/dL AST (17-59) U/L ALT (7-56) U/L Alkaline Phosphatase (38-126) U/L Lactate Dehydrogenase (333-699) U/L Total Creatine Kinase (35-230) U/L Troponin I ng/mL Total Protein (5.8-8.3) g/dL Albumin (3.0-4.8) g/dL Globulin gm/dL Albumin/Globulin Ratio (1.1-1.8) Venous Blood Potassium 4.6 (3.6-5.2) mmol/L Urine Color Brown (YELLOW) Urine Appearance Turbid (CLEAR) Urine pH 6.0 (4.7-8.0) Ur Specific Royal 1.010 (1.005-1.035) Urine Protein Trace H (<30 mg/dL) mg/dL Urine Glucose (UA) Negative (NEGATIVE) mg/dL Urine Ketones Negative (NEGATIVE) mg/dL Urine Blood Negative (NEGATIVE) Urine Nitrate Negative (NEGATIVE) Urine Bilirubin Negative (NEGATIVE) Urine Urobilinogen 0.2 (<1 E.U./dL) E.U./dL Ur Leukocyte Esterase Moderate H (NEGATIVE) Jacey/uL Urine RBC 0 - 2 (0-2) /hpf Urine WBC 5 - 10 H (0-6) /hpf Ur Epithelial Cells 0 - 2 (0-5) /hpf Urine Bacteria Mod (NONE) /hpf Blood Type A POSITIVE Blood Type Confirm Antibody Screen Negative Crossmatch See Detail BBK History Checked No verified bt 01/25/19 01/25/19 01/25/19 Range/Units 20:40 20:40 20:40 WBC (4.5-11.0) 10^3/uL RBC (3.5-6.1) 10^6/uL Hgb (14.0-18.0) g/dL Hct (42.0-52.0) % MCV (80.0-105.0) fl MCH (25.0-35.0) pg MCHC (31.0-37.0) g/dl RDW (11.5-14.5) % Plt Count (120.0-450.0) 10^3/uL MPV (7.0-11.0) fl Neut % (Auto) (50.0-68.0) % Lymph % (Auto) (22.0-35.0) % [place] % (Auto) (1.0-6.0) % Eos % (Auto) (1.5-5.0) % Baso % (Auto) (0.0-3.0) % Lymph # (Auto) (1.2-3.4) [place] # (Auto) (0.1-0.6) Eos # (Auto) (0.0-0.7) Baso # (Auto) (0.0-2.0) K/mm3 Absolute Neuts (auto) (1.4-6.5) Neutrophils % (Manual) (50.0-70.0) % Band Neutrophils % (0-2) % Lymphocytes % (Manual) (22.0-35.0) % Monocytes % (Manual) (1.0-6.0) % Platelet Evaluation (NORMAL) PT 14.8 H (9.4-12.5) SECONDS INR 1.33 APTT 36.5 (26.9-38.3) Seconds pO2 (30-55) mm/Hg VBG pH (7.32-7.43) VBG pCO2 (40-60) VBG HCO3 (21-28) mmol/l VBG Total CO2 (22-28) mmol.L VBG O2 Sat (Calc) (40-65) % VBG Base Excess (0.0-2.0) mmol/L VBG Potassium (3.6-5.2) mmol/L Glucose (75-110) mg/dl Lactate (0.7-2.1) mmol/L FiO2 % Crit Value Called To Crit Value Called By Blood Gas Notified Time Sodium 134 (132-148) mmol/L Potassium 4.6 (3.6-5.0) mmol/L Chloride 98 (98-107) mmol/L Carbon Dioxide 26 (21-33) mmol/L Anion Gap 15 (10-20) BUN 106 H (7-21) mg/dL Creatinine 1.1 (0.8-1.5) mg/dl Est GFR ( Amer) > 60 Est GFR (Non-Af Amer) > 60 Random Glucose 136 H (70-110) mg/dL Calcium 9.4 (8.4-10.5) mg/dL Total Bilirubin 0.4 (0.2-1.3) mg/dL AST 30 (17-59) U/L ALT 14 (7-56) U/L Alkaline Phosphatase 53 (38-126) U/L Lactate Dehydrogenase 292 L (333-699) U/L Total Creatine Kinase < 20 L (35-230) U/L Troponin I 0.02 ng/mL Total Protein 7.1 (5.8-8.3) g/dL Albumin 3.2 (3.0-4.8) g/dL Globulin 3.8 gm/dL Albumin/Globulin Ratio 0.8 L (1.1-1.8) Venous Blood Potassium (3.6-5.2) mmol/L Urine Color Light yellow (YELLOW) Urine Appearance Clear (CLEAR) Urine pH 7.0 (4.7-8.0) Ur Specific Royal 1.010 (1.005-1.035) Urine Protein Negative (<30 mg/dL) mg/dL Urine Glucose (UA) Negative (NEGATIVE) mg/dL Urine Ketones Negative (NEGATIVE) mg/dL Urine Blood Negative (NEGATIVE) Urine Nitrate Negative (NEGATIVE) Urine Bilirubin Negative (NEGATIVE) Urine Urobilinogen 0.2 (<1 E.U./dL) E.U./dL Ur Leukocyte Esterase Negative (NEGATIVE) Jacey/uL Urine RBC (0-2) /hpf Urine WBC (0-6) /hpf Ur Epithelial Cells (0-5) /hpf Urine Bacteria (NONE) /hpf Blood Type Blood Type Confirm Antibody Screen Crossmatch BBK History Checked 01/25/19 Range/Units 20:40 WBC 26.5 H* (4.5-11.0) 10^3/uL RBC 2.67 L (3.5-6.1) 10^6/uL Hgb 8.6 L (14.0-18.0) g/dL Hct 26.5 L (42.0-52.0) % MCV 99.3 (80.0-105.0) fl MCH 32.2 (25.0-35.0) pg MCHC 32.5 (31.0-37.0) g/dl RDW 14.8 H (11.5-14.5) % Plt Count 403 (120.0-450.0) 10^3/uL MPV 9.1 (7.0-11.0) fl Neut % (Auto) 90.5 H (50.0-68.0) % Lymph % (Auto) 4.7 L (22.0-35.0) % [place] % (Auto) 4.7 (1.0-6.0) % Eos % (Auto) 0.0 L (1.5-5.0) % Baso % (Auto) 0.1 (0.0-3.0) % Lymph # (Auto) 1.3 (1.2-3.4) [place] # (Auto) 1.2 H (0.1-0.6) Eos # (Auto) 0.0 (0.0-0.7) Baso # (Auto) 0.02 (0.0-2.0) K/mm3 Absolute Neuts (auto) 24.02 H (1.4-6.5) Neutrophils % (Manual) 81 H (50.0-70.0) % Band Neutrophils % 9 H (0-2) % Lymphocytes % (Manual) 7 L (22.0-35.0) % Monocytes % (Manual) 3 (1.0-6.0) % Platelet Evaluation Normal (NORMAL) PT (9.4-12.5) SECONDS INR APTT (26.9-38.3) Seconds pO2 (30-55) mm/Hg VBG pH (7.32-7.43) VBG pCO2 (40-60) VBG HCO3 (21-28) mmol/l VBG Total CO2 (22-28) mmol.L VBG O2 Sat (Calc) (40-65) % VBG Base Excess (0.0-2.0) mmol/L VBG Potassium (3.6-5.2) mmol/L Glucose (75-110) mg/dl Lactate (0.7-2.1) mmol/L FiO2 % Crit Value Called To Crit Value Called By Blood Gas Notified Time Sodium (132-148) mmol/L Potassium (3.6-5.0) mmol/L Chloride (98-107) mmol/L Carbon Dioxide (21-33) mmol/L Anion Gap (10-20) BUN (7-21) mg/dL Creatinine (0.8-1.5) mg/dl Est GFR ( Amer) Est GFR (Non-Af Amer) Random Glucose (70-110) mg/dL Calcium (8.4-10.5) mg/dL Total Bilirubin (0.2-1.3) mg/dL AST (17-59) U/L ALT (7-56) U/L Alkaline Phosphatase (38-126) U/L Lactate Dehydrogenase (333-699) U/L Total Creatine Kinase (35-230) U/L Troponin I ng/mL Total Protein (5.8-8.3) g/dL Albumin (3.0-4.8) g/dL Globulin gm/dL Albumin/Globulin Ratio (1.1-1.8) Venous Blood Potassium (3.6-5.2) mmol/L Urine Color (YELLOW) Urine Appearance (CLEAR) Urine pH (4.7-8.0) Ur Specific Royal (1.005-1.035) Urine Protein (<30 mg/dL) mg/dL Urine Glucose (UA) (NEGATIVE) mg/dL Urine Ketones (NEGATIVE) mg/dL Urine Blood (NEGATIVE) Urine Nitrate (NEGATIVE) Urine Bilirubin (NEGATIVE) Urine Urobilinogen (<1 E.U./dL) E.U./dL Ur Leukocyte Esterase (NEGATIVE) Jacey/uL Urine RBC (0-2) /hpf Urine WBC (0-6) /hpf Ur Epithelial Cells (0-5) /hpf Urine Bacteria (NONE) /hpf Blood Type Blood Type Confirm Antibody Screen Crossmatch BBK History Checked Laboratory Results - last 24 hr 01/25/19 01/25/19 01/25/19 20:40 20:40 20:40 WBC 26.5 H* RBC 2.67 L Hgb 8.6 L Hct 26.5 L MCV 99.3 MCH 32.2 MCHC 32.5 RDW 14.8 H Plt Count 403 MPV 9.1 Neut % (Auto) 90.5 H Lymph % (Auto) 4.7 L [place] % (Auto) 4.7 Eos % (Auto) 0.0 L Baso % (Auto) 0.1 Lymph # (Auto) 1.3 [place] # (Auto) 1.2 H Eos # (Auto) 0.0 Baso # (Auto) 0.02 Absolute Neuts (auto) 24.02 H Neutrophils % (Manual) 81 H Band Neutrophils % 9 H Lymphocytes % (Manual) 7 L Monocytes % (Manual) 3 Platelet Evaluation Normal PT 14.8 H INR 1.33 APTT 36.5 pO2 VBG pH VBG pCO2 VBG HCO3 VBG Total CO2 VBG O2 Sat (Calc) VBG Base Excess VBG Potassium Glucose Lactate FiO2 Crit Value Called To Crit Value Called By Blood Gas Notified Time Sodium Potassium Chloride Carbon Dioxide Anion Gap BUN Creatinine Est GFR ( Amer) Est GFR (Non-Af Amer) Random Glucose Calcium Total Bilirubin AST ALT Alkaline Phosphatase Lactate Dehydrogenase Total Creatine Kinase Troponin I Total Protein Albumin Globulin Albumin/Globulin Ratio Venous Blood Potassium Urine Color Light yellow Urine Appearance Clear Urine pH 7.0 Ur Specific Royal 1.010 Urine Protein Negative Urine Glucose (UA) Negative Urine Ketones Negative Urine Blood Negative Urine Nitrate Negative Urine Bilirubin Negative Urine Urobilinogen 0.2 Ur Leukocyte Esterase Negative Urine RBC Urine WBC Ur Epithelial Cells Urine Bacteria Blood Type Blood Type Confirm Antibody Screen Crossmatch BBK History Checked 01/25/19 01/25/19 01/25/19 20:40 21:02 22:50 WBC RBC Hgb Hct MCV MCH MCHC RDW Plt Count MPV Neut % (Auto) Lymph % (Auto) [place] % (Auto) Eos % (Auto) Baso % (Auto) Lymph # (Auto) [place] # (Auto) Eos # (Auto) Baso # (Auto) Absolute Neuts (auto) Neutrophils % (Manual) Band Neutrophils % Lymphocytes % (Manual) Monocytes % (Manual) Platelet Evaluation PT INR APTT pO2 27 L VBG pH 7.40 VBG pCO2 46.0 VBG HCO3 28.5 H VBG Total CO2 29.9 H VBG O2 Sat (Calc) 56.1 VBG Base Excess 3.0 H VBG Potassium 4.6 Glucose 142 H Lactate 3.9 H FiO2 21.0 Crit Value Called To Alexandra Crit Value Called By Ck-nutrient management specialist Blood Gas Notified Time 2126 Sodium 134 134.0 Potassium 4.6 Chloride 98 100.0 Carbon Dioxide 26 Anion Gap 15 BUN 106 H Creatinine 1.1 Est GFR ( Amer) > 60 Est GFR (Non-Af Amer) > 60 Random Glucose 136 H Calcium 9.4 Total Bilirubin 0.4 AST 30 ALT 14 Alkaline Phosphatase 53 Lactate Dehydrogenase 292 L Total Creatine Kinase < 20 L Troponin I 0.02 Total Protein 7.1 Albumin 3.2 Globulin 3.8 Albumin/Globulin Ratio 0.8 L Venous Blood Potassium 4.6 Urine Color Urine Appearance Urine pH Ur Specific Royal Urine Protein Urine Glucose (UA) Urine Ketones Urine Blood Urine Nitrate Urine Bilirubin Urine Urobilinogen Ur Leukocyte Esterase Urine RBC Urine WBC Ur Epithelial Cells Urine Bacteria Blood Type A POSITIVE Blood Type Confirm Antibody Screen Negative Crossmatch See Detail BBK History Checked No verified bt 01/25/19 01/25/19 01/25/19 23:20 23:55 23:55 WBC 21.0 H D RBC 2.47 L Hgb 7.9 L Hct 24.6 L MCV 99.6 MCH 32.0 MCHC 32.1 RDW 14.8 H Plt Count 316 MPV 8.9 Neut % (Auto) Lymph % (Auto) [place] % (Auto) Eos % (Auto) Baso % (Auto) Lymph # (Auto) [place] # (Auto) Eos # (Auto) Baso # (Auto) Absolute Neuts (auto) Neutrophils % (Manual) Band Neutrophils % Lymphocytes % (Manual) Monocytes % (Manual) Platelet Evaluation PT INR APTT pO2 VBG pH VBG pCO2 VBG HCO3 VBG Total CO2 VBG O2 Sat (Calc) VBG Base Excess VBG Potassium Glucose Lactate FiO2 Crit Value Called To Crit Value Called By Blood Gas Notified Time Sodium Potassium Chloride Carbon Dioxide Anion Gap BUN Creatinine Est GFR ( Amer) Est GFR (Non-Af Amer) Random Glucose Calcium Total Bilirubin AST ALT Alkaline Phosphatase Lactate Dehydrogenase Total Creatine Kinase Troponin I Total Protein Albumin Globulin Albumin/Globulin Ratio Venous Blood Potassium Urine Color Brown Urine Appearance Turbid Urine pH 6.0 Ur Specific Royal 1.010 Urine Protein Trace H Urine Glucose (UA) Negative Urine Ketones Negative Urine Blood Negative Urine Nitrate Negative Urine Bilirubin Negative Urine Urobilinogen 0.2 Ur Leukocyte Esterase Moderate H Urine RBC 0 - 2 Urine WBC 5 - 10 H Ur Epithelial Cells 0 - 2 Urine Bacteria Mod Blood Type Blood Type Confirm A POSITIVE Antibody Screen Crossmatch BBK History Checked 01/26/19 00:05 WBC RBC Hgb Hct MCV MCH MCHC RDW Plt Count MPV Neut % (Auto) Lymph % (Auto) [place] % (Auto) Eos % (Auto) Baso % (Auto) Lymph # (Auto) [place] # (Auto) Eos # (Auto) Baso # (Auto) Absolute Neuts (auto) Neutrophils % (Manual) Band Neutrophils % Lymphocytes % (Manual) Monocytes % (Manual) Platelet Evaluation PT INR APTT pO2 32 VBG pH 7.31 L VBG pCO2 52.0 VBG HCO3 26.2 VBG Total CO2 27.8 VBG O2 Sat (Calc) 51.8 VBG Base Excess -0.8 L VBG Potassium 4.4 Glucose 156 H Lactate 3.4 H FiO2 21.0 Crit Value Called To Evangelista murray rn ccu Crit Value Called By [facility] Blood Gas Notified Time 40 Sodium 137.0 Potassium Chloride 102.0 Carbon Dioxide Anion Gap BUN Creatinine Est GFR ( Amer) Est GFR (Non-Af Amer) Random Glucose Calcium Total Bilirubin AST ALT Alkaline Phosphatase Lactate Dehydrogenase Total Creatine Kinase Troponin I Total Protein Albumin Globulin Albumin/Globulin Ratio Venous Blood Potassium 4.4 Urine Color Urine Appearance Urine pH Ur Specific Royal Urine Protein Urine Glucose (UA) Urine Ketones Urine Blood Urine Nitrate Urine Bilirubin Urine Urobilinogen Ur Leukocyte Esterase Urine RBC Urine WBC Ur Epithelial Cells Urine Bacteria Blood Type Blood Type Confirm Antibody Screen Crossmatch BBK History Checked Radiology Impressions: Radiology Impressions Chest X-Ray 01/25/19 20:24 IMPRESSION: [id number] pulmonary vascular congestion and suspicious for right pleural effusion. Abdomen X-Ray 01/25/19 22:36 IMPRESSION: Dilated air-filled bowel loops in the upper abdomen are noted. The possibility of small amount of free air is not totally excluded. If clinically warranted further evaluation by CT may be obtained. Chest X-Ray 01/25/19 23:40 IMPRESSION: No active disease. EKG/Cardiology Studies: Cardiology / EKG Studies 01/25/19 20:24 ELECTROCARDIOGRAM Stat Comment: Reason For Exam: Sepsis Patient Assessment/Plan - Assessment and Plan (Free Text) Assessment: Pt is an 88yo male with a PMH of atrial fibrillation, COPD, dysphagia with PEG tube, dementia and sacral ulcer who presented from shelter with coffee ground substance in his PEG tube. Pt admitted to the ICU for management of septic shock, leukocytosis, hypotension, and possible GI bleed. Plan: Neuro - dementia, non verbal at baseline, CVA, seizures, depression - monitor for changes in mental status Cardio - atrial fibrillation, HTN, CAD, s/p AICD - central line in place - levophed drip - maintain MAP>65 Pulm - COPD - levauterol and atrovent GI - GI bleed - dysphagia with PEG tube - 1 unit of pRBC given yesterday - will continue to monitor H/H - protonix - Surgery consulted, Dr Jones - GI consulted, Dr Selby Nephro/ - BPH - monitor electrolytes - monitor BUN/Cr Heme/ Onc - Hgb 7.9 to 9.7 - continue to monitor - will transfuse as necessary - INR 1.33 ID - sacral ulcer, UTI - WBC 19, improving, continue to monitor - UA mod LE, WBC 5-10 - follow up blood, urine culture - vanc, zosyn - ID consulted, Dr Mccurdy Endo - hypothyroidsim - maintain euglycemia Pt seen, examined, assessment and plan discussed with Dr Ranjit Tipton PGY1 - Date & Time Date: 01/26/19 Time: 07:32 <Josh Church - Last Filed: 01/26/19 18:12> CCU Objective - Vital Signs / Intake & Output Vital Signs (Last 4 hours): Vital Signs BP 01/26/19 15:32 91/52 L Intake and Output (Last 8hrs): Intake & Output 01/26/19 01/26/19 01/26/19 06:59 14:59 22:59 Intake Total 1815 280 137 Output Total 1400 Balance 415 280 137 Intake: IV 1290 280 137 0.5 ns 480 abx 100 levo 300 protonix 160 Blood Product 525 Output: Gastric Amount 900 Stomach 900 Urine 500 Urethral (Lucas) 500 Other: Voiding Method Indwelling Catheter - Medications Active Medications: Active Medications Generic Name Dose Route Start Last Admin Trade Name Freq PRN Reason Stop Dose Admin Hydrocortisone Sodium Succinate 50 mg 01/26/19 14:45 01/26/19 14:59 Solu-Cortef IVP 50 mg Q6H RICCO Administration Sodium Chloride 1,000 mls @ 60 mls/hr 01/25/19 22:00 01/26/19 00:14 Sodium Chloride 0.45% IV 60 mls/hr .[id number] RICCO Administration Vancomycin HCl 1 gm in 250 mls @ 167 mls/hr 01/26/19 10:00 01/26/19 10:06 Vancomycin 1gm IVPB 167 mls/hr DAILY RICCO Administration Protocol NOREPINEPHRINE BIT/0.9 % NACL 4 mg in 250 mls @ 15 mls/hr 01/25/19 23:44 01/26/19 15:00 Levophed 4 Mg/ 250 Ml Ns Premixed IV 6 mcg/min .[id number] PRN 22.5 mls/hr TITRATE PER MD ORDER Titration Protocol 4 MCG/MIN Vasopressin 20 units/ Dextrose 101 mls @ 9.09 mls/hr 01/26/19 14:45 01/26/19 15:32 IV 9.09 mls/hr .[id number] RICCO Administration Protocol 0.03 U/MIN Ipratropium [place] 0.5 mg 01/26/19 02:00 01/26/19 13:44 Atrovent IH 0.5 mg [id number] RICCO Administration Levalbuterol HCl 1.25 mg 01/26/19 02:00 01/26/19 13:44 Xopenex IH 1.25 mg [id number] RICCO Administration Pantoprazole Sodium 40 mg 01/26/19 22:00 Protonix Inj IVP Q12 RICCO - Patient Studies Lab Studies: Lab Studies 01/26/19 01/26/19 01/26/19 Range/Units 08:10 07:45 07:45 WBC 19.4 H (4.5-11.0) 10^3/uL RBC 3.12 L (3.5-6.1) 10^6/uL Hgb 9.7 L (14.0-18.0) g/dL Hct 30.0 L (42.0-52.0) % MCV 96.2 D (80.0-105.0) fl MCH 31.1 (25.0-35.0) pg MCHC 32.3 (31.0-37.0) g/dl RDW 15.7 H (11.5-14.5) % Plt Count 342 (120.0-450.0) 10^3/uL MPV 8.8 (7.0-11.0) fl Neut % (Auto) (50.0-68.0) % Lymph % (Auto) (22.0-35.0) % [place] % (Auto) (1.0-6.0) % Eos % (Auto) (1.5-5.0) % Baso % (Auto) (0.0-3.0) % Lymph # (Auto) (1.2-3.4) [place] # (Auto) (0.1-0.6) Eos # (Auto) (0.0-0.7) Baso # (Auto) (0.0-2.0) K/mm3 Absolute Neuts (auto) (1.4-6.5) Neutrophils % (Manual) (50.0-70.0) % Band Neutrophils % (0-2) % Lymphocytes % (Manual) (22.0-35.0) % Monocytes % (Manual) (1.0-6.0) % Platelet Evaluation (NORMAL) PT (9.4-12.5) SECONDS INR APTT (26.9-38.3) Seconds pO2 37 (30-55) mm/Hg VBG pH 7.28 L (7.32-7.43) VBG pCO2 62.0 H (40-60) VBG HCO3 29.1 H (21-28) mmol/l VBG Total CO2 31.0 H (22-28) mmol.L VBG O2 Sat (Calc) 66.5 H (40-65) % VBG Base Excess 0.8 (0.0-2.0) mmol/L VBG Potassium 4.8 (3.6-5.2) mmol/L Glucose 135 H (75-110) mg/dl Lactate 1.9 (0.7-2.1) mmol/L FiO2 21.0 % Crit Value Called To Crit Value Called By Blood Gas Notified Time Sodium 139.0 138 (132-148) mmol/L Potassium 4.6 (3.6-5.0) mmol/L Chloride 103.0 104 (98-107) mmol/L Carbon Dioxide 26 (21-33) mmol/L Anion Gap 13 (10-20) BUN 92 H (7-21) mg/dL Creatinine 1.0 (0.8-1.5) mg/dl Est GFR ( Amer) > 60 Est GFR (Non-Af Amer) > 60 Random Glucose 128 H (70-110) mg/dL Calcium 8.7 (8.4-10.5) mg/dL Total Bilirubin 0.9 (0.2-1.3) mg/dL AST 38 (17-59) U/L ALT 19 (7-56) U/L Alkaline Phosphatase 54 (38-126) U/L Lactate Dehydrogenase (333-699) U/L Total Creatine Kinase (35-230) U/L Troponin I ng/mL Total Protein 7.3 (5.8-8.3) g/dL Albumin 3.4 (3.0-4.8) g/dL Globulin 3.9 gm/dL Albumin/Globulin Ratio 0.9 L (1.1-1.8) Procalcitonin (0.19-0.49) NG/ML Venous Blood Potassium 4.8 (3.6-5.2) mmol/L Urine Color (YELLOW) Urine Appearance (CLEAR) Urine pH (4.7-8.0) Ur Specific Royal (1.005-1.035) Urine Protein (<30 mg/dL) mg/dL Urine Glucose (UA) (NEGATIVE) mg/dL Urine Ketones (NEGATIVE) mg/dL Urine Blood (NEGATIVE) Urine Nitrate (NEGATIVE) Urine Bilirubin (NEGATIVE) Urine Urobilinogen (<1 E.U./dL) E.U./dL Ur Leukocyte Esterase (NEGATIVE) Jacey/uL Urine RBC (0-2) /hpf Urine WBC (0-6) /hpf Ur Epithelial Cells (0-5) /hpf Urine Bacteria (NONE) /hpf Blood Type Blood Type Confirm Antibody Screen Crossmatch BBK History Checked 01/26/19 01/25/19 01/25/19 Range/Units 00:05 23:55 23:55 WBC 21.0 H D (4.5-11.0) 10^3/uL RBC 2.47 L (3.5-6.1) 10^6/uL Hgb 7.9 L (14.0-18.0) g/dL Hct 24.6 L (42.0-52.0) % MCV 99.6 (80.0-105.0) fl MCH 32.0 (25.0-35.0) pg MCHC 32.1 (31.0-37.0) g/dl RDW 14.8 H (11.5-14.5) % Plt Count 316 (120.0-450.0) 10^3/uL MPV 8.9 (7.0-11.0) fl Neut % (Auto) (50.0-68.0) % Lymph % (Auto) (22.0-35.0) % [place] % (Auto) (1.0-6.0) % Eos % (Auto) (1.5-5.0) % Baso % (Auto) (0.0-3.0) % Lymph # (Auto) (1.2-3.4) [place] # (Auto) (0.1-0.6) Eos # (Auto) (0.0-0.7) Baso # (Auto) (0.0-2.0) K/mm3 Absolute Neuts (auto) (1.4-6.5) Neutrophils % (Manual) (50.0-70.0) % Band Neutrophils % (0-2) % Lymphocytes % (Manual) (22.0-35.0) % Monocytes % (Manual) (1.0-6.0) % Platelet Evaluation (NORMAL) PT (9.4-12.5) SECONDS INR APTT (26.9-38.3) Seconds pO2 32 (30-55) mm/Hg VBG pH 7.31 L (7.32-7.43) VBG pCO2 52.0 (40-60) VBG HCO3 26.2 (21-28) mmol/l VBG Total CO2 27.8 (22-28) mmol.L VBG O2 Sat (Calc) 51.8 (40-65) % VBG Base Excess -0.8 L (0.0-2.0) mmol/L VBG Potassium 4.4 (3.6-5.2) mmol/L Glucose 156 H (75-110) mg/dl Lactate 3.4 H (0.7-2.1) mmol/L FiO2 21.0 % Crit Value Called To Evangelista murray rn ccu Crit Value Called By Mando Blood Gas Notified Time 40 Sodium 137.0 (132-148) mmol/L Potassium (3.6-5.0) mmol/L Chloride 102.0 (98-107) mmol/L Carbon Dioxide (21-33) mmol/L Anion Gap (10-20) BUN (7-21) mg/dL Creatinine (0.8-1.5) mg/dl Est GFR ( Amer) Est GFR (Non-Af Amer) Random Glucose (70-110) mg/dL Calcium (8.4-10.5) mg/dL Total Bilirubin (0.2-1.3) mg/dL AST (17-59) U/L ALT (7-56) U/L Alkaline Phosphatase (38-126) U/L Lactate Dehydrogenase (333-699) U/L Total Creatine Kinase (35-230) U/L Troponin I ng/mL Total Protein (5.8-8.3) g/dL Albumin (3.0-4.8) g/dL Globulin gm/dL Albumin/Globulin Ratio (1.1-1.8) Procalcitonin (0.19-0.49) NG/ML Venous Blood Potassium 4.4 (3.6-5.2) mmol/L Urine Color (YELLOW) Urine Appearance (CLEAR) Urine pH (4.7-8.0) Ur Specific Royal (1.005-1.035) Urine Protein (<30 mg/dL) mg/dL Urine Glucose (UA) (NEGATIVE) mg/dL Urine Ketones (NEGATIVE) mg/dL Urine Blood (NEGATIVE) Urine Nitrate (NEGATIVE) Urine Bilirubin (NEGATIVE) Urine Urobilinogen (<1 E.U./dL) E.U./dL Ur Leukocyte Esterase (NEGATIVE) Jacey/uL Urine RBC (0-2) /hpf Urine WBC (0-6) /hpf Ur Epithelial Cells (0-5) /hpf Urine Bacteria (NONE) /hpf Blood Type Blood Type Confirm A POSITIVE Antibody Screen Crossmatch BBK History Checked 01/25/19 01/25/19 01/25/19 Range/Units 23:20 22:50 21:02 WBC (4.5-11.0) 10^3/uL RBC (3.5-6.1) 10^6/uL Hgb (14.0-18.0) g/dL Hct (42.0-52.0) % MCV (80.0-105.0) fl MCH (25.0-35.0) pg MCHC (31.0-37.0) g/dl RDW (11.5-14.5) % Plt Count (120.0-450.0) 10^3/uL MPV (7.0-11.0) fl Neut % (Auto) (50.0-68.0) % Lymph % (Auto) (22.0-35.0) % [place] % (Auto) (1.0-6.0) % Eos % (Auto) (1.5-5.0) % Baso % (Auto) (0.0-3.0) % Lymph # (Auto) (1.2-3.4) [place] # (Auto) (0.1-0.6) Eos # (Auto) (0.0-0.7) Baso # (Auto) (0.0-2.0) K/mm3 Absolute Neuts (auto) (1.4-6.5) Neutrophils % (Manual) (50.0-70.0) % Band Neutrophils % (0-2) % Lymphocytes % (Manual) (22.0-35.0) % Monocytes % (Manual) (1.0-6.0) % Platelet Evaluation (NORMAL) PT (9.4-12.5) SECONDS INR APTT (26.9-38.3) Seconds pO2 27 L (30-55) mm/Hg VBG pH 7.40 (7.32-7.43) VBG pCO2 46.0 (40-60) VBG HCO3 28.5 H (21-28) mmol/l VBG Total CO2 29.9 H (22-28) mmol.L VBG O2 Sat (Calc) 56.1 (40-65) % VBG Base Excess 3.0 H (0.0-2.0) mmol/L VBG Potassium 4.6 (3.6-5.2) mmol/L Glucose 142 H (75-110) mg/dl Lactate 3.9 H (0.7-2.1) mmol/L FiO2 21.0 % Crit Value Called To Lenore-marcelo Crit Value Called By Ck-nutrient management specialist Blood Gas Notified Time 2126 Sodium 134.0 (132-148) mmol/L Potassium (3.6-5.0) mmol/L Chloride 100.0 (98-107) mmol/L Carbon Dioxide (21-33) mmol/L Anion Gap (10-20) BUN (7-21) mg/dL Creatinine (0.8-1.5) mg/dl Est GFR ( Amer) Est GFR (Non-Af Amer) Random Glucose (70-110) mg/dL Calcium (8.4-10.5) mg/dL Total Bilirubin (0.2-1.3) mg/dL AST (17-59) U/L ALT (7-56) U/L Alkaline Phosphatase (38-126) U/L Lactate Dehydrogenase (333-699) U/L Total Creatine Kinase (35-230) U/L Troponin I ng/mL Total Protein (5.8-8.3) g/dL Albumin (3.0-4.8) g/dL Globulin gm/dL Albumin/Globulin Ratio (1.1-1.8) Procalcitonin (0.19-0.49) NG/ML Venous Blood Potassium 4.6 (3.6-5.2) mmol/L Urine Color Brown (YELLOW) Urine Appearance Turbid (CLEAR) Urine pH 6.0 (4.7-8.0) Ur Specific Royal 1.010 (1.005-1.035) Urine Protein Trace H (<30 mg/dL) mg/dL Urine Glucose (UA) Negative (NEGATIVE) mg/dL Urine Ketones Negative (NEGATIVE) mg/dL Urine Blood Negative (NEGATIVE) Urine Nitrate Negative (NEGATIVE) Urine Bilirubin Negative (NEGATIVE) Urine Urobilinogen 0.2 (<1 E.U./dL) E.U./dL Ur Leukocyte Esterase Moderate H (NEGATIVE) Jacey/uL Urine RBC 0 - 2 (0-2) /hpf Urine WBC 5 - 10 H (0-6) /hpf Ur Epithelial Cells 0 - 2 (0-5) /hpf Urine Bacteria Mod (NONE) /hpf Blood Type A POSITIVE Blood Type Confirm Antibody Screen Negative Crossmatch See Detail BBK History Checked No verified bt 01/25/19 01/25/19 01/25/19 Range/Units 20:40 20:40 20:40 WBC (4.5-11.0) 10^3/uL RBC (3.5-6.1) 10^6/uL Hgb (14.0-18.0) g/dL Hct (42.0-52.0) % MCV (80.0-105.0) fl MCH (25.0-35.0) pg MCHC (31.0-37.0) g/dl RDW (11.5-14.5) % Plt Count (120.0-450.0) 10^3/uL MPV (7.0-11.0) fl Neut % (Auto) (50.0-68.0) % Lymph % (Auto) (22.0-35.0) % [place] % (Auto) (1.0-6.0) % Eos % (Auto) (1.5-5.0) % Baso % (Auto) (0.0-3.0) % Lymph # (Auto) (1.2-3.4) [place] # (Auto) (0.1-0.6) Eos # (Auto) (0.0-0.7) Baso # (Auto) (0.0-2.0) K/mm3 Absolute Neuts (auto) (1.4-6.5) Neutrophils % (Manual) (50.0-70.0) % Band Neutrophils % (0-2) % Lymphocytes % (Manual) (22.0-35.0) % Monocytes % (Manual) (1.0-6.0) % Platelet Evaluation (NORMAL) PT (9.4-12.5) SECONDS INR APTT (26.9-38.3) Seconds pO2 (30-55) mm/Hg VBG pH (7.32-7.43) VBG pCO2 (40-60) VBG HCO3 (21-28) mmol/l VBG Total CO2 (22-28) mmol.L VBG O2 Sat (Calc) (40-65) % VBG Base Excess (0.0-2.0) mmol/L VBG Potassium (3.6-5.2) mmol/L Glucose (75-110) mg/dl Lactate (0.7-2.1) mmol/L FiO2 % Crit Value Called To Crit Value Called By Blood Gas Notified Time Sodium 134 (132-148) mmol/L Potassium 4.6 (3.6-5.0) mmol/L Chloride 98 (98-107) mmol/L Carbon Dioxide 26 (21-33) mmol/L Anion Gap 15 (10-20) BUN 106 H (7-21) mg/dL Creatinine 1.1 (0.8-1.5) mg/dl Est GFR ( Amer) > 60 Est GFR (Non-Af Amer) > 60 Random Glucose 136 H (70-110) mg/dL Calcium 9.4 (8.4-10.5) mg/dL Total Bilirubin 0.4 (0.2-1.3) mg/dL AST 30 (17-59) U/L ALT 14 (7-56) U/L Alkaline Phosphatase 53 (38-126) U/L Lactate Dehydrogenase 292 L (333-699) U/L Total Creatine Kinase < 20 L (35-230) U/L Troponin I 0.02 ng/mL Total Protein 7.1 (5.8-8.3) g/dL Albumin 3.2 (3.0-4.8) g/dL Globulin 3.8 gm/dL Albumin/Globulin Ratio 0.8 L (1.1-1.8) Procalcitonin 0.42 (0.19-0.49) NG/ML Venous Blood Potassium (3.6-5.2) mmol/L Urine Color Light yellow (YELLOW) Urine Appearance Clear (CLEAR) Urine pH 7.0 (4.7-8.0) Ur Specific Royal 1.010 (1.005-1.035) Urine Protein Negative (<30 mg/dL) mg/dL Urine Glucose (UA) Negative (NEGATIVE) mg/dL Urine Ketones Negative (NEGATIVE) mg/dL Urine Blood Negative (NEGATIVE) Urine Nitrate Negative (NEGATIVE) Urine Bilirubin Negative (NEGATIVE) Urine Urobilinogen 0.2 (<1 E.U./dL) E.U./dL Ur Leukocyte Esterase Negative (NEGATIVE) Jacey/uL Urine RBC (0-2) /hpf Urine WBC (0-6) /hpf Ur Epithelial Cells (0-5) /hpf Urine Bacteria (NONE) /hpf Blood Type Blood Type Confirm Antibody Screen Crossmatch BBK History Checked 01/25/19 01/25/19 Range/Units 20:40 20:40 WBC 26.5 H* (4.5-11.0) 10^3/uL RBC 2.67 L (3.5-6.1) 10^6/uL Hgb 8.6 L (14.0-18.0) g/dL Hct 26.5 L (42.0-52.0) % MCV 99.3 (80.0-105.0) fl MCH 32.2 (25.0-35.0) pg MCHC 32.5 (31.0-37.0) g/dl RDW 14.8 H (11.5-14.5) % Plt Count 403 (120.0-450.0) 10^3/uL MPV 9.1 (7.0-11.0) fl Neut % (Auto) 90.5 H (50.0-68.0) % Lymph % (Auto) 4.7 L (22.0-35.0) % [place] % (Auto) 4.7 (1.0-6.0) % Eos % (Auto) 0.0 L (1.5-5.0) % Baso % (Auto) 0.1 (0.0-3.0) % Lymph # (Auto) 1.3 (1.2-3.4) [place] # (Auto) 1.2 H (0.1-0.6) Eos # (Auto) 0.0 (0.0-0.7) Baso # (Auto) 0.02 (0.0-2.0) K/mm3 Absolute Neuts (auto) 24.02 H (1.4-6.5) Neutrophils % (Manual) 81 H (50.0-70.0) % Band Neutrophils % 9 H (0-2) % Lymphocytes % (Manual) 7 L (22.0-35.0) % Monocytes % (Manual) 3 (1.0-6.0) % Platelet Evaluation Normal (NORMAL) PT 14.8 H (9.4-12.5) SECONDS INR 1.33 APTT 36.5 (26.9-38.3) Seconds pO2 (30-55) mm/Hg VBG pH (7.32-7.43) VBG pCO2 (40-60) VBG HCO3 (21-28) mmol/l VBG Total CO2 (22-28) mmol.L VBG O2 Sat (Calc) (40-65) % VBG Base Excess (0.0-2.0) mmol/L VBG Potassium (3.6-5.2) mmol/L Glucose (75-110) mg/dl Lactate (0.7-2.1) mmol/L FiO2 % Crit Value Called To Crit Value Called By Blood Gas Notified Time Sodium (132-148) mmol/L Potassium (3.6-5.0) mmol/L Chloride (98-107) mmol/L Carbon Dioxide (21-33) mmol/L Anion Gap (10-20) BUN (7-21) mg/dL Creatinine (0.8-1.5) mg/dl Est GFR ( Amer) Est GFR (Non-Af Amer) Random Glucose (70-110) mg/dL Calcium (8.4-10.5) mg/dL Total Bilirubin (0.2-1.3) mg/dL AST (17-59) U/L ALT (7-56) U/L Alkaline Phosphatase (38-126) U/L Lactate Dehydrogenase (333-699) U/L Total Creatine Kinase (35-230) U/L Troponin I ng/mL Total Protein (5.8-8.3) g/dL Albumin (3.0-4.8) g/dL Globulin gm/dL Albumin/Globulin Ratio (1.1-1.8) Procalcitonin (0.19-0.49) NG/ML Venous Blood Potassium (3.6-5.2) mmol/L Urine Color (YELLOW) Urine Appearance (CLEAR) Urine pH (4.7-8.0) Ur Specific [place] (1.005-1.035) Urine Protein (<30 mg/dL) mg/dL Urine Glucose (UA) (NEGATIVE) mg/dL Urine Ketones (NEGATIVE) mg/dL Urine Blood (NEGATIVE) Urine Nitrate (NEGATIVE) Urine Bilirubin (NEGATIVE) Urine Urobilinogen (<1 E.U./dL) E.U./dL Ur Leukocyte Esterase (NEGATIVE) Jacey/uL Urine RBC (0-2) /hpf Urine WBC (0-6) /hpf Ur Epithelial Cells (0-5) /hpf Urine Bacteria (NONE) /hpf Blood Type Blood Type Confirm Antibody Screen Crossmatch BBK History Checked Laboratory Results - last 24 hr 01/25/19 01/25/19 01/25/19 20:40 20:40 20:40 WBC 26.5 H* RBC 2.67 L Hgb 8.6 L Hct 26.5 L MCV 99.3 MCH 32.2 MCHC 32.5 RDW 14.8 H Plt Count 403 MPV 9.1 Neut % (Auto) 90.5 H Lymph % (Auto) 4.7 L [place] % (Auto) 4.7 Eos % (Auto) 0.0 L Baso % (Auto) 0.1 Lymph # (Auto) 1.3 [place] # (Auto) 1.2 H Eos # (Auto) 0.0 Baso # (Auto) 0.02 Absolute Neuts (auto) 24.02 H Neutrophils % (Manual) 81 H Band Neutrophils % 9 H Lymphocytes % (Manual) 7 L Monocytes % (Manual) 3 Platelet Evaluation Normal PT 14.8 H INR 1.33 APTT 36.5 pO2 VBG pH VBG pCO2 VBG HCO3 VBG Total CO2 VBG O2 Sat (Calc) VBG Base Excess VBG Potassium Glucose Lactate FiO2 Crit Value Called To Crit Value Called By Blood Gas Notified Time Sodium Potassium Chloride Carbon Dioxide Anion Gap BUN Creatinine Est GFR ( Amer) Est GFR (Non-Af Amer) Random Glucose Calcium Total Bilirubin AST ALT Alkaline Phosphatase Lactate Dehydrogenase Total Creatine Kinase Troponin I Total Protein Albumin Globulin Albumin/Globulin Ratio Procalcitonin Venous Blood Potassium Urine Color Light yellow Urine Appearance Clear Urine pH 7.0 Ur Specific Royal 1.010 Urine Protein Negative Urine Glucose (UA) Negative Urine Ketones Negative Urine Blood Negative Urine Nitrate Negative Urine Bilirubin Negative Urine Urobilinogen 0.2 Ur Leukocyte Esterase Negative Urine RBC Urine WBC Ur Epithelial Cells Urine Bacteria Blood Type Blood Type Confirm Antibody Screen Crossmatch BBK History Checked 01/25/19 01/25/19 01/25/19 20:40 20:40 21:02 WBC RBC Hgb Hct MCV MCH MCHC RDW Plt Count MPV Neut % (Auto) Lymph % (Auto) [place] % (Auto) Eos % (Auto) Baso % (Auto) Lymph # (Auto) [place] # (Auto) Eos # (Auto) Baso # (Auto) Absolute Neuts (auto) Neutrophils % (Manual) Band Neutrophils % Lymphocytes % (Manual) Monocytes % (Manual) Platelet Evaluation PT INR APTT pO2 27 L VBG pH 7.40 VBG pCO2 46.0 VBG HCO3 28.5 H VBG Total CO2 29.9 H VBG O2 Sat (Calc) 56.1 VBG Base Excess 3.0 H VBG Potassium 4.6 Glucose 142 H Lactate 3.9 H FiO2 21.0 Crit Value Called To Alexandra Crit Value Called By Ck-nutrient management specialist Blood Gas Notified Time 2126 Sodium 134 134.0 Potassium 4.6 Chloride 98 100.0 Carbon Dioxide 26 Anion Gap 15 BUN 106 H Creatinine 1.1 Est GFR ( Amer) > 60 Est GFR (Non-Af Amer) > 60 Random Glucose 136 H Calcium 9.4 Total Bilirubin 0.4 AST 30 ALT 14 Alkaline Phosphatase 53 Lactate Dehydrogenase 292 L Total Creatine Kinase < 20 L Troponin I 0.02 Total Protein 7.1 Albumin 3.2 Globulin 3.8 Albumin/Globulin Ratio 0.8 L Procalcitonin 0.42 Venous Blood Potassium 4.6 Urine Color Urine Appearance Urine pH Ur Specific Royal Urine Protein Urine Glucose (UA) Urine Ketones Urine Blood Urine Nitrate Urine Bilirubin Urine Urobilinogen Ur Leukocyte Esterase Urine RBC Urine WBC Ur Epithelial Cells Urine Bacteria Blood Type Blood Type Confirm Antibody Screen Crossmatch BBK History Checked 01/25/19 01/25/19 01/25/19 22:50 23:20 23:55 WBC 21.0 H D RBC 2.47 L Hgb 7.9 L Hct 24.6 L MCV 99.6 MCH 32.0 MCHC 32.1 RDW 14.8 H Plt Count 316 MPV 8.9 Neut % (Auto) Lymph % (Auto) [place] % (Auto) Eos % (Auto) Baso % (Auto) Lymph # (Auto) [place] # (Auto) Eos # (Auto) Baso # (Auto) Absolute Neuts (auto) Neutrophils % (Manual) Band Neutrophils % Lymphocytes % (Manual) Monocytes % (Manual) Platelet Evaluation PT INR APTT pO2 VBG pH VBG pCO2 VBG HCO3 VBG Total CO2 VBG O2 Sat (Calc) VBG Base Excess VBG Potassium Glucose Lactate FiO2 Crit Value Called To Crit Value Called By Blood Gas Notified Time Sodium Potassium Chloride Carbon Dioxide Anion Gap BUN Creatinine Est GFR ( Amer) Est GFR (Non-Af Amer) Random Glucose Calcium Total Bilirubin AST ALT Alkaline Phosphatase Lactate Dehydrogenase Total Creatine Kinase Troponin I Total Protein Albumin Globulin Albumin/Globulin Ratio Procalcitonin Venous Blood Potassium Urine Color Brown Urine Appearance Turbid Urine pH 6.0 Ur Specific Royal 1.010 Urine Protein Trace H Urine Glucose (UA) Negative Urine Ketones Negative Urine Blood Negative Urine Nitrate Negative Urine Bilirubin Negative Urine Urobilinogen 0.2 Ur Leukocyte Esterase Moderate H Urine RBC 0 - 2 Urine WBC 5 - 10 H Ur Epithelial Cells 0 - 2 Urine Bacteria Mod Blood Type A POSITIVE Blood Type Confirm Antibody Screen Negative Crossmatch See Detail BBK History Checked No verified bt 01/25/19 01/26/19 01/26/19 23:55 00:05 07:45 WBC 19.4 H RBC 3.12 L Hgb 9.7 L Hct 30.0 L MCV 96.2 D MCH 31.1 MCHC 32.3 RDW 15.7 H Plt Count 342 MPV 8.8 Neut % (Auto) Lymph % (Auto) [place] % (Auto) Eos % (Auto) Baso % (Auto) Lymph # (Auto) [place] # (Auto) Eos # (Auto) Baso # (Auto) Absolute Neuts (auto) Neutrophils % (Manual) Band Neutrophils % Lymphocytes % (Manual) Monocytes % (Manual) Platelet Evaluation PT INR APTT pO2 32 VBG pH 7.31 L VBG pCO2 52.0 VBG HCO3 26.2 VBG Total CO2 27.8 VBG O2 Sat (Calc) 51.8 VBG Base Excess -0.8 L VBG Potassium 4.4 Glucose 156 H Lactate 3.4 H FiO2 21.0 Crit Value Called To Evangelista murray rn ccu Crit Value Called By Mando Blood Gas Notified Time 40 Sodium 137.0 Potassium Chloride 102.0 Carbon Dioxide Anion Gap BUN Creatinine Est GFR ( Amer) Est GFR (Non-Af Amer) Random Glucose Calcium Total Bilirubin AST ALT Alkaline Phosphatase Lactate Dehydrogenase Total Creatine Kinase Troponin I Total Protein Albumin Globulin Albumin/Globulin Ratio Procalcitonin Venous Blood Potassium 4.4 Urine Color Urine Appearance Urine pH Ur Specific Royal Urine Protein Urine Glucose (UA) Urine Ketones Urine Blood Urine Nitrate Urine Bilirubin Urine Urobilinogen Ur Leukocyte Esterase Urine RBC Urine WBC Ur Epithelial Cells Urine Bacteria Blood Type Blood Type Confirm A POSITIVE Antibody Screen Crossmatch BBK History Checked 01/26/19 01/26/19 07:45 08:10 WBC RBC Hgb Hct MCV MCH MCHC RDW Plt Count MPV Neut % (Auto) Lymph % (Auto) [place] % (Auto) Eos % (Auto) Baso % (Auto) Lymph # (Auto) [place] # (Auto) Eos # (Auto) Baso # (Auto) Absolute Neuts (auto) Neutrophils % (Manual) Band Neutrophils % Lymphocytes % (Manual) Monocytes % (Manual) Platelet Evaluation PT INR APTT pO2 37 VBG pH 7.28 L VBG pCO2 62.0 H VBG HCO3 29.1 H VBG Total CO2 31.0 H VBG O2 Sat (Calc) 66.5 H VBG Base Excess 0.8 VBG Potassium 4.8 Glucose 135 H Lactate 1.9 FiO2 21.0 Crit Value Called To Crit Value Called By Blood Gas Notified Time Sodium 138 139.0 Potassium 4.6 Chloride 104 103.0 Carbon Dioxide 26 Anion Gap 13 BUN 92 H Creatinine 1.0 Est GFR ( Amer) > 60 Est GFR (Non-Af Amer) > 60 Random Glucose 128 H Calcium 8.7 Total Bilirubin 0.9 AST 38 ALT 19 Alkaline Phosphatase 54 Lactate Dehydrogenase Total Creatine Kinase Troponin I Total Protein 7.3 Albumin 3.4 Globulin 3.9 Albumin/Globulin Ratio 0.9 L Procalcitonin Venous Blood Potassium 4.8 Urine Color Urine Appearance Urine pH Ur Specific Royal Urine Protein Urine Glucose (UA) Urine Ketones Urine Blood Urine Nitrate Urine Bilirubin Urine Urobilinogen Ur Leukocyte Esterase Urine RBC Urine WBC Ur Epithelial Cells Urine Bacteria Blood Type Blood Type Confirm Antibody Screen Crossmatch BBK History Checked Radiology Impressions: Radiology Impressions Chest X-Ray 01/25/19 20:24 IMPRESSION: [id number] pulmonary vascular congestion and suspicious for right pleural effusion. Abdomen X-Ray 01/25/19 22:36 IMPRESSION: Dilated air-filled bowel loops in the upper abdomen are noted. The possibility of small amount of free air is not totally excluded. If clinically warranted further evaluation by CT may be obtained. Chest X-Ray 01/25/19 23:40 IMPRESSION: No active disease. Abdomen/Pelvis CT 01/26/19 07:24 IMPRESSION: Severe constipation with fecal impaction. The rectum is dilated to a diameter of 10 cm EKG/Cardiology Studies: Cardiology / EKG Studies 01/25/19 20:24 ELECTROCARDIOGRAM Stat Comment: Reason For Exam: Sepsis Patient Attending/Attestation - Attestation I have personally seen and examined this patient.: Yes I have fully participated in the care of the patient.: Yes I have reviewed all pertinent clinical information: Yes Notes (Text): 01/26/19 18:[address] Church note
[2019-01-26 07:54] LABS: MEAN CELL VOLUME 96.2 fl (80.0-105.0); MEAN CORPUSCULAR HEMOGLOBIN 31.1 pg (25.0-35.0); MEAN CORPUSCULAR HGB CONC 32.3 g/dl (31.0-37.0); MEAN PLATELET VOLUME 8.8 fl (7.0-11.0); RBC 3.12 10^6/uL (3.5-6.1); RED CELL DISTRIBUTION WIDTH 15.7 % (11.5-14.5); WHITE BLOOD COUNT 19.4 10^3/uL (4.5-11.0)
[2019-01-26 07:55] LABS: HEMOGLOBIN 9.7 g/dL (14.0-18.0)
[2019-01-26 08:32] LABS: VENOUS BLOOD GAS BASE EXCESS 0.8 mmol/L (0.0-2.0); VENOUS BLOOD GAS PO2 37 mm/Hg (30-55); VENOUS BLOOD PH 7.28 (7.32-7.43)
[2019-01-26 08:51] LABS: ALB/GLOB RATIO 0.9 (1.1-1.8); ALBUMIN 3.4 g/dL (3.0-4.8); ALT/SGPT 19 U/L (7-56); AST/SGOT 38 U/L (17-59); BLOOD UREA NITROGEN 92 mg/dL (7-21); CALCIUM 8.7 mg/dL (8.4-10.5); GFR NON-AFRICAN AMERICAN > 60
[2019-01-26] MEDS: Vancomycin 1gm in NS 250ml 1 GM/250 ML BAG IVPB SCH (10:06)
--- NOTE | 2019-01-26 10:11 | PN ---
DATE: 01/26/2019 SUBJECTIVE: I saw him in the intensive care unit. He is not waking up, has been kind of out of it for the past 24 hours. I saw him in the emergency room last night. He is currently on Atrovent, Levophed, Protonix, IV fluids, vancomycin, Xopenex and Zosyn. PHYSICAL EXAMINATION: VITAL SIGNS: He has a 97.6 temperature, 93 pulse, 87/58 blood pressure, 22 respiratory rate, 100% O2 sat. HEENT: Head: Atraumatic, normocephalic. He is not waking up. Throat is dry. HEART: Regular rate. LUNGS: Decreased breath sounds. ABDOMEN: Soft with a feeding tube. 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 He is not moving at all the left side either. He has been out of it mentally, but no edema. LABORATORY DATA: He had lab tests. He has a 19.4 white count, came down from 26 which is better, hemoglobin is up to 9.7, hematocrit 30, platelets of 342. Lactate finally down to 1.9, was as high as 3.9. He has a 138 sodium, potassium 4.6, BUN 92, creatinine is 1. This is also getting better. GFR is greater than 60, sugar is 128, calcium is 8.7, total bili is 0.9, AST is 38, ALT is 19, alk phos is 54, total protein 7.3. He is here with a picture of sepsis, elevated white count, change in mentation. He has consults with Infectious Disease, GI, Surgery. Continue aggressive treatment and care. Art Espinosa DO
--- NOTE | 2019-01-26 11:25 | CT ---
Date of service: 01/26/2019 PROCEDURE: CT Abdomen and Pelvis without intravenous contrast HISTORY: GI bleed COMPARISON: None. TECHNIQUE: Without contrast.. Contrast dose: Radiation dose: Total exam DLP = 860.09 mGy-cm. This CT exam was performed using one or more of the following dose reduction techniques: Automated exposure control, adjustment of the mA and/or kV according to patient size, and/or use of iterative reconstruction technique. FINDINGS: LOWER THORAX: Small to moderate bilateral pleural effusions with adjacent atelectasis LIVER: Unremarkable. No gross lesion or ductal dilatation. GALLBLADDER AND BILE DUCTS: [place] PANCREAS: Unremarkable. No gross lesion or ductal dilatation. SPLEEN: Unremarkable. ADRENALS: Unremarkable. No mass. KIDNEYS AND URETERS: Unremarkable. No hydronephrosis. No solid mass. VASCULATURE: Unremarkable. No aortic aneurysm. Aortic calcification BOWEL: Severe constipation with fecal impaction. The rectum is dilated to a diameter of 10 cm APPENDIX: Unremarkable. Normal appendix. PERITONEUM: Unremarkable. No free fluid. No free air. LYMPH NODES: Unremarkable. No enlarged lymph nodes. BLADDER: Unremarkable. REPRODUCTIVE: Unremarkable. BONES: No acute fracture. OTHER FINDINGS: None. IMPRESSION: Severe constipation with fecal impaction. The rectum is dilated to a diameter of 10 cm
--- NOTE | 2019-01-26 13:39 | CP.PCM.APN ---
Subjective - Date & Time of Evaluation Date of Evaluation: 01/26/19 Time of Evaluation: 13:35 - Subjective Subjective: Pt seen and examined at bedside. Opens eyes on verbal and tactile stimuli but is nonverbal which is baseline. In no acute respiratory distress. Objective - Vital Signs/Intake and Output Vital Signs (last 24 hours): Temp Pulse Resp BP Pulse Ox 97.6 F 91 H 22 102/57 L 96 01/25/19 23:15 01/26/19 06:10 01/26/19 06:10 01/26/19 06:00 01/26/19 06:10 Intake and Output: 01/26/19 01/26/19 06:59 18:59 Intake Total 1815 280 Output Total 1400 Balance 415 280 - Medications Medications: Current Medications Sodium Chloride (Sodium Chloride 0.45%) 1,000 mls @ 60 mls/hr IV .[id number] RICCO Last Admin: 01/26/19 00:14 Dose: 60 mls/hr Vancomycin HCl (Vancomycin 1gm) 1 gm in 250 mls @ 167 mls/hr IVPB DAILY RICCO; Protocol Last Admin: 01/26/19 10:06 Dose: 167 mls/hr Piperacillin Sod/Tazobactam Sod (Zosyn 3.375 In Ns 100ml) 100 mls @ 25 mls/hr IVPB Q8 RICCO; Protocol Stop: 01/26/19 17:59 Last Admin: 01/26/19 13:28 Dose: 25 mls/hr NOREPINEPHRINE BIT/0.9 % NACL (Levophed 4 Mg/ 250 Ml Ns Premixed) 4 mg in 250 mls @ 15 mls/hr IV .[id number] PRN; Protocol PRN Reason: TITRATE PER MD ORDER Last Titration: 01/26/19 11:36 Dose: 8 mcg/min, 30 mls/hr Pantoprazole Sodium (Protonix 40mg Ivpb) 40 mg in 100 mls @ 20 mls/hr IVPB .Q5H RICCO Last Admin: 01/26/19 10:03 Dose: 20 mls/hr Ipratropium [place] (Atrovent) 0.5 mg IH [id number] RICCO Last Admin: 01/26/19 07:27 Dose: 0.5 mg Levalbuterol HCl (Xopenex) 1.25 mg IH [id number] RICCO Last Admin: 01/26/19 07:27 Dose: 1.25 mg - Labs Labs: 01/26/19 07:45 01/26/19 07:45 PT 14.8 SECONDS (9.4-12.5) H 01/25/19 20:40 INR 1.33 01/25/19 20:40 APTT 36.5 Seconds (26.9-38.3) 01/25/19 20:40 - Constitutional Appears: No Acute Distress - GI/Abdominal Exam GI & Abdominal Exam: Soft, Normal Bowel Sounds Additional comments: PEG w/ black residual Assessment and Plan - Assessment and Plan (Free Text) Assessment: pt is an 88 year old male, whose past medical history includes dysphagia s/p PEG tube, CVA, atrial fibrillation, CAD, hypertension, COPD, BPH, hypothyroidism, seizures, and depression who presented to the ED transferred from retirement for dark residual from PEG tube. In ED, he was found to be hypotensive, tachycardic and has WBC of 26.5. ITS Impressions Chest X-Ray 01/25/19 20:24 IMPRESSION: [id number] pulmonary vascular congestion and suspicious for right pleural effusion. Abdomen X-Ray 01/25/19 22:36 IMPRESSION: Dilated air-filled bowel loops in the upper abdomen are noted. The possibility of small amount of free air is not totally excluded. If clinically warranted further evaluation by CT may be obtained. Chest X-Ray 01/25/19 23:40 IMPRESSION: No active disease. Abdomen/Pelvis CT 01/26/19 07:24 IMPRESSION: Severe constipation with fecal impaction. The rectum is dilated to a diameter of 10 cm Plan: On Levophed, Zosyn, Vanco, Protonix IVPB S/P 1UPRBC yesterday Monitor h/h ID, GI, Surgery on consult Meds per DEC Will continue to follow
--- NOTE | 2019-01-26 14:48 | CP.PCM.CON ---
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 Patient is reportedly nonverbal at baseline and no family at bedside during my encounter. I subsequently called patient's at number listed in chart and she states she does not know what has been going on with her . Since admission, there is been about 1 L output of coffee ground material from PEG tubeand hemoglobin was found to be 7.9 from an unknown baseline; however, hemoglobin hyper-responded to 9.7 after 1 unit. Patient was also found to have dirty urine with leukocytosis of 21 and blood pressure requiring pressor support. Unable to obtain review of systems due to clinical condition Medical history: See above Surgical history: PEG tube placement Medications: Reviewed Family history: Unknown Social history: Negative 3, patient is a DNR/DNI Allergies: No known drug allergies Past Patient History - Infectious Disease Hx of Infectious Diseases: None - Past Social History Smoking Status: Unknown If Ever Smoked - CARDIAC Hx Cardiac Disorders: Yes Hx Atrial Fibrillation: Yes Hx Hypertension: Yes - PULMONARY Hx Respiratory Disorders: Yes Hx Chronic Obstructive Pulmonary Disease (COPD): Yes - NEUROLOGICAL Hx Neurological Disorder: Yes HX Cerebrovascular Accident: Yes Hx Dementia: Yes Hx Seizures: Yes Other/Comment: dysphagia - HEENT Hx HEENT Problems: No - RENAL Hx Chronic Kidney Disease: No - ENDOCRINE/METABOLIC Hx Endocrine Disorders: Yes Hx Hypothyroidism: Yes - HEMATOLOGICAL/ONCOLOGICAL Hx Blood Disorders: No - INTEGUMENTARY Hx Dermatological Problems: No - MUSCULOSKELETAL/RHEUMATOLOGICAL Hx Musculoskeletal Disorders: No - GASTROINTESTINAL Hx Gastrointestinal Disorders: Yes Hx Bowel Surgery: Yes (PEG tube) HX Swallowing Problems: Yes (dysphagia) - GENITOURINARY/GYNECOLOGICAL Hx Genitourinary Disorders: Yes - PSYCHIATRIC Hx Psychophysiologic Disorder: Yes Hx Depression: Yes Hx Substance Use: No - SURGICAL HISTORY Other/Comment: PEG tube - ANESTHESIA Hx Anesthesia: Yes Hx Anesthesia Reactions: No Hx Malignant Hyperthermia: No Meds Allergies/Adverse Reactions: Allergies Allergy/AdvReac Type Severity Reaction Status Date / Time No Known Allergies Allergy Unverified 01/25/19 20:23 - Medications Medications: Current Medications Hydrocortisone Sodium Succinate (Solu-Cortef) 50 mg IVP Q6H [facility] Sodium Chloride (Sodium Chloride 0.45%) 1,000 mls @ 60 mls/hr IV .[id number] [facility] Last Admin: 01/26/19 00:14 Dose: 60 mls/hr Vancomycin HCl (Vancomycin 1gm) 1 gm in 250 mls @ 167 mls/hr IVPB DAILY [facility]; Protocol Last Admin: 01/26/19 10:06 Dose: 167 mls/hr Piperacillin Sod/Tazobactam Sod (Zosyn 3.375 In Ns 100ml) 100 mls @ 25 mls/hr IVPB Q8 [facility]; Protocol Stop: 01/26/19 17:59 Last Admin: 01/26/19 13:28 Dose: 25 mls/hr NOREPINEPHRINE BIT/0.9 % NACL (Levophed 4 Mg/ 250 Ml Ns Premixed) 4 mg in 250 mls @ 15 mls/hr IV .[id number] PRN; Protocol PRN Reason: TITRATE PER MD ORDER Last Titration: 01/26/19 11:36 Dose: 8 mcg/min, 30 mls/hr Pantoprazole Sodium (Protonix 40mg Ivpb) 40 mg in 100 mls @ 20 mls/hr IVPB .Q5H [facility] Last Admin: 01/26/19 10:03 Dose: 20 mls/hr Vasopressin 20 units/ Dextrose 101 mls @ 9.09 mls/hr IV .[id number] [facility]; Protocol Ipratropium [place] (Atrovent) 0.5 mg IH [id number] [facility] Last Admin: 01/26/19 13:44 Dose: 0.5 mg Levalbuterol HCl (Xopenex) 1.25 mg IH [id number] [facility] Last Admin: 01/26/19 13:44 Dose: 1.25 mg Physical Exam - Constitutional Appears: No Acute Distress, Cachectic, Chronically Ill - Head Exam Head Exam: ATRAUMATIC Additional comments: temporal wasting - Eye Exam Eye Exam: EOMI - ENT Exam ENT Exam: Mucous Membranes Dry. absent: Mucous Membranes Moist - Respiratory Exam Respiratory Exam: NORMAL BREATHING PATTERN. absent: Accessory Muscle Use - Cardiovascular Exam Cardiovascular Exam: REGULAR RHYTHM, RRR - GI/Abdominal Exam GI & Abdominal Exam: Distended (mildly), Hypoactive Bowel Sounds, Soft. absent: Bruit, Diminished Bowel Sounds, Firm, Guarding, Hernia, Organomegaly, Tenderness Additional comments: PEG tube in place without signs of infection but with coffee-ground output - Rectal Exam Additional comments: dark brownish green stool on ARDEN with pasty stool in vault - Extremities Exam Extremities exam: Positive for: normal inspection. Negative for: pedal edema - Neurological Exam Additional comments: nonverbal, opens eyes to tactile stimulation - Skin Skin Exam: Dry, Warm Results - Vital Signs Recent Vital Signs: Last Vital Signs Temp 97.6 F 01/25/19 23:15 Pulse 91 H 01/26/19 06:10 Resp 22 01/26/19 06:10 BP 102/57 L 01/26/19 06:00 Pulse Ox 96 01/26/19 06:10 - Labs Result Diagrams: 01/26/19 07:45 01/26/19 07:45 Labs: Laboratory Results - last 24 hr 01/25/19 01/25/19 01/25/19 20:40 20:40 20:40 WBC 26.5 H* RBC 2.67 L Hgb 8.6 L Hct 26.5 L MCV 99.3 MCH 32.2 MCHC 32.5 RDW 14.8 H Plt Count 403 MPV 9.1 Neut % (Auto) 90.5 H Lymph % (Auto) 4.7 L [place] % (Auto) 4.7 Eos % (Auto) 0.0 L Baso % (Auto) 0.1 Lymph # (Auto) 1.3 [place] # (Auto) 1.2 H Eos # (Auto) 0.0 Baso # (Auto) 0.02 Absolute Neuts (auto) 24.02 H Neutrophils % (Manual) 81 H Band Neutrophils % 9 H Lymphocytes % (Manual) 7 L Monocytes % (Manual) 3 Platelet Evaluation Normal PT 14.8 H INR 1.33 APTT 36.5 pO2 VBG pH VBG pCO2 VBG HCO3 VBG Total CO2 VBG O2 Sat (Calc) VBG Base Excess VBG Potassium Glucose Lactate FiO2 Crit Value Called To Crit Value Called By Blood Gas Notified Time Sodium Potassium Chloride Carbon Dioxide Anion Gap BUN Creatinine Est GFR ( Amer) Est GFR (Non-Af Amer) Random Glucose Calcium Total Bilirubin AST ALT Alkaline Phosphatase Lactate Dehydrogenase Total Creatine Kinase Troponin I Total Protein Albumin Globulin Albumin/Globulin Ratio Procalcitonin Venous Blood Potassium Urine Color Light yellow Urine Appearance Clear Urine pH 7.0 Ur Specific [place] 1.010 Urine Protein Negative Urine Glucose (UA) Negative Urine Ketones Negative Urine Blood Negative Urine Nitrate Negative Urine Bilirubin Negative Urine Urobilinogen 0.2 Ur Leukocyte Esterase Negative Urine RBC Urine WBC Ur Epithelial Cells Urine Bacteria Blood Type Blood Type Confirm Antibody Screen Crossmatch BBK History Checked 01/25/19 01/25/19 01/25/19 20:40 20:40 21:02 WBC RBC Hgb Hct MCV MCH MCHC RDW Plt Count MPV Neut % (Auto) Lymph % (Auto) [place] % (Auto) Eos % (Auto) Baso % (Auto) Lymph # (Auto) [place] # (Auto) Eos # (Auto) Baso # (Auto) Absolute Neuts (auto) Neutrophils % (Manual) Band Neutrophils % Lymphocytes % (Manual) Monocytes % (Manual) Platelet Evaluation PT INR APTT pO2 27 L VBG pH 7.40 VBG pCO2 46.0 VBG HCO3 28.5 H VBG Total CO2 29.9 H VBG O2 Sat (Calc) 56.1 VBG Base Excess 3.0 H VBG Potassium 4.6 Glucose 142 H Lactate 3.9 H FiO2 21.0 Crit Value Called To Alexandra Crit Value Called By Ck-program project analyst Blood Gas Notified Time 2126 Sodium 134 134.0 Potassium 4.6 Chloride 98 100.0 Carbon Dioxide 26 Anion Gap 15 BUN 106 H Creatinine 1.1 Est GFR ( Amer) > 60 Est GFR (Non-Af Amer) > 60 Random Glucose 136 H Calcium 9.4 Total Bilirubin 0.4 AST 30 ALT 14 Alkaline Phosphatase 53 Lactate Dehydrogenase 292 L Total Creatine Kinase < 20 L Troponin I 0.02 Total Protein 7.1 Albumin 3.2 Globulin 3.8 Albumin/Globulin Ratio 0.8 L Procalcitonin 0.42 Venous Blood Potassium 4.6 Urine Color Urine Appearance Urine pH Ur Specific [place] Urine Protein Urine Glucose (UA) Urine Ketones Urine Blood Urine Nitrate Urine Bilirubin Urine Urobilinogen Ur Leukocyte Esterase Urine RBC Urine WBC Ur Epithelial Cells Urine Bacteria Blood Type Blood Type Confirm Antibody Screen Crossmatch BBK History Checked 01/25/19 01/25/19 01/25/19 22:50 23:20 23:55 WBC 21.0 H D RBC 2.47 L Hgb 7.9 L Hct 24.6 L MCV 99.6 MCH 32.0 MCHC 32.1 RDW 14.8 H Plt Count 316 MPV 8.9 Neut % (Auto) Lymph % (Auto) [place] % (Auto) Eos % (Auto) Baso % (Auto) Lymph # (Auto) [place] # (Auto) Eos # (Auto) Baso # (Auto) Absolute Neuts (auto) Neutrophils % (Manual) Band Neutrophils % Lymphocytes % (Manual) Monocytes % (Manual) Platelet Evaluation PT INR APTT pO2 VBG pH VBG pCO2 VBG HCO3 VBG Total CO2 VBG O2 Sat (Calc) VBG Base Excess VBG Potassium Glucose Lactate FiO2 Crit Value Called To Crit Value Called By Blood Gas Notified Time Sodium Potassium Chloride Carbon Dioxide Anion Gap BUN Creatinine Est GFR ( Amer) Est GFR (Non-Af Amer) Random Glucose Calcium Total Bilirubin AST ALT Alkaline Phosphatase Lactate Dehydrogenase Total Creatine Kinase Troponin I Total Protein Albumin Globulin Albumin/Globulin Ratio Procalcitonin Venous Blood Potassium Urine Color Brown Urine Appearance Turbid Urine pH 6.0 Ur Specific [place] 1.010 Urine Protein Trace H Urine Glucose (UA) Negative Urine Ketones Negative Urine Blood Negative Urine Nitrate Negative Urine Bilirubin Negative Urine Urobilinogen 0.2 Ur Leukocyte Esterase Moderate H Urine RBC 0 - 2 Urine WBC 5 - 10 H Ur Epithelial Cells 0 - 2 Urine Bacteria Mod Blood Type A POSITIVE Blood Type Confirm Antibody Screen Negative Crossmatch See Detail BBK History Checked No verified bt 01/25/19 01/26/19 01/26/19 23:55 00:05 07:45 WBC 19.4 H RBC 3.12 L Hgb 9.7 L Hct 30.0 L MCV 96.2 D MCH 31.1 MCHC 32.3 RDW 15.7 H Plt Count 342 MPV 8.8 Neut % (Auto) Lymph % (Auto) [place] % (Auto) Eos % (Auto) Baso % (Auto) Lymph # (Auto) [place] # (Auto) Eos # (Auto) Baso # (Auto) Absolute Neuts (auto) Neutrophils % (Manual) Band Neutrophils % Lymphocytes % (Manual) Monocytes % (Manual) Platelet Evaluation PT INR APTT pO2 32 VBG pH 7.31 L VBG pCO2 52.0 VBG HCO3 26.2 VBG Total CO2 27.8 VBG O2 Sat (Calc) 51.8 VBG Base Excess -0.8 L VBG Potassium 4.4 Glucose 156 H Lactate 3.4 H FiO2 21.0 Crit Value Called To Evangelista murray rn teacher Crit Value Called By Mando Blood Gas Notified Time 40 Sodium 137.0 Potassium Chloride 102.0 Carbon Dioxide Anion Gap BUN Creatinine Est GFR ( Amer) Est GFR (Non-Af Amer) Random Glucose Calcium Total Bilirubin AST ALT Alkaline Phosphatase Lactate Dehydrogenase Total Creatine Kinase Troponin I Total Protein Albumin Globulin Albumin/Globulin Ratio Procalcitonin Venous Blood Potassium 4.4 Urine Color Urine Appearance Urine pH Ur Specific [place] Urine Protein Urine Glucose (UA) Urine Ketones Urine Blood Urine Nitrate Urine Bilirubin Urine Urobilinogen Ur Leukocyte Esterase Urine RBC Urine WBC Ur Epithelial Cells Urine Bacteria Blood Type Blood Type Confirm A POSITIVE Antibody Screen Crossmatch BBK History Checked 01/26/19 01/26/19 07:45 08:10 WBC RBC Hgb Hct MCV MCH MCHC RDW Plt Count MPV Neut % (Auto) Lymph % (Auto) [place] % (Auto) Eos % (Auto) Baso % (Auto) Lymph # (Auto) [place] # (Auto) Eos # (Auto) Baso # (Auto) Absolute Neuts (auto) Neutrophils % (Manual) Band Neutrophils % Lymphocytes % (Manual) Monocytes % (Manual) Platelet Evaluation PT INR APTT pO2 37 VBG pH 7.28 L VBG pCO2 62.0 H VBG HCO3 29.1 H VBG Total CO2 31.0 H VBG O2 Sat (Calc) 66.5 H VBG Base Excess 0.8 VBG Potassium 4.8 Glucose 135 H Lactate 1.9 FiO2 21.0 Crit Value Called To Crit Value Called By Blood Gas Notified Time Sodium 138 139.0 Potassium 4.6 Chloride 104 103.0 Carbon Dioxide 26 Anion Gap 13 BUN 92 H Creatinine 1.0 Est GFR ( Amer) > 60 Est GFR (Non-Af Amer) > 60 Random Glucose 128 H Calcium 8.7 Total Bilirubin 0.9 AST 38 ALT 19 Alkaline Phosphatase 54 Lactate Dehydrogenase Total Creatine Kinase Troponin I Total Protein 7.3 Albumin 3.4 Globulin 3.9 Albumin/Globulin Ratio 0.9 L Procalcitonin Venous Blood Potassium 4.8 Urine Color Urine Appearance Urine pH Ur Specific [place] Urine Protein Urine Glucose (UA) Urine Ketones Urine Blood Urine Nitrate Urine Bilirubin Urine Urobilinogen Ur Leukocyte Esterase Urine RBC Urine WBC Ur Epithelial Cells Urine Bacteria Blood Type Blood Type Confirm Antibody Screen Crossmatch BBK History Checked Assessment & Plan - Assessment and Plan (Free Text) Assessment: 88-year-old white male with a past medical history of dementia, CVA, dysphagia status post PEG, atrial fibrillation, CAD presenting from nursing facility with altered mental status and coffee-ground output from PEG tube. #Coffee-ground output from PEG tube: All concerning for upper GI bleed given ph ysical exam as well as elevated BUN. Hemoglobin 7.9 from unknown baseline. Hyper responded to 9 s/p 1 unit PRBC. Stool on ARDEN was not black nor red. Therefore, suspect pressor support perhaps related to sepsis component #Fecal impaction: Large amount of stool burden seen on CT with rectum dilated up to 10 cm. Manual disimpaction done but only with soft stool within digital reach which was subsequently evacuated #septic shock: Given the dirty UA concerning for urosepsis #Dementia, CVA, dysphagia status post PEG #atrial fibrillation, CAD, AICD Plan: PPI drip -> IV q 12 hrs Monitor hemoglobin Patient is currently a DNR/DNI; plan to confirm goals of care with [facility] care POA Antibiotics and pressor support per primary/ICU status post manual disimpaction Tapwater enemas now then daily Patient seen and examined with Dr. Selby; please see attestation for further recommendations/changes Portions of this note were dictated but not necessarily proofread <Josiah Selby V - Last Filed: 01/27/19 22:39> Meds - Medications Medications: Current Medications Hydrocortisone Sodium Succinate (Solu-Cortef) 50 mg IVP Q12 [facility] Last Admin: 01/27/19 22:03 Dose: 50 mg Sodium Chloride (Sodium Chloride 0.45%) 1,000 mls @ 60 mls/hr IV .[id number] [facility] Last Admin: 01/27/19 07:35 Dose: 60 mls/hr Vancomycin HCl (Vancomycin 1gm) 1 gm in 250 mls @ 167 mls/hr IVPB DAILY [facility]; Protocol Last Admin: 01/27/19 09:01 Dose: 167 mls/hr Piperacillin Sod/Tazobactam Sod (Zosyn 4.5 Gm In Ns 100ml) 4.5 gm in 100 mls @ 25 mls/hr IVPB Q8 [facility]; Protocol Stop: 02/04/19 14:01 Last Admin: 01/27/19 22:02 Dose: 25 mls/hr Ipratropium [place] (Atrovent) 0.5 mg IH [id number] [facility] Last Admin: 01/27/19 20:27 Dose: 0.5 mg Levalbuterol HCl (Xopenex) 1.25 mg IH [id number] [facility] Last Admin: 01/27/19 20:28 Dose: 1.25 mg Midodrine (Proamatine) 10 mg PO TID [facility] Last Admin: 01/27/19 17:31 Dose: 10 mg Pantoprazole Sodium (Protonix Inj) 40 mg IVP Q12 [facility] Last Admin: 01/27/19 22:02 Dose: 40 mg Polyethylene Glycol (Miralax) 17 gm PEG QID [facility] Last Admin: 01/27/19 22:03 Dose: 17 gm Results - Vital Signs Recent Vital Signs: Last Vital Signs Temp 98.9 F 01/27/19 17:13 Pulse 62 01/27/19 18:30 Resp 22 01/27/19 18:30 BP 102/59 L 01/27/19 18:00 Pulse Ox 99 01/27/19 18:30 - Labs Result Diagrams: 01/27/19 20:40 01/27/19 06:20 Labs: Laboratory Results - last 24 hr 01/25/19 01/27/19 01/27/19 22:50 06:20 06:20 WBC 11.8 H D RBC 2.38 L Hgb 7.3 L D Hct 23.0 L MCV 96.6 MCH 30.7 MCHC 31.7 RDW 16.5 H Plt Count 299 MPV 9.0 Neut % (Auto) Lymph % (Auto) [place] % (Auto) Eos % (Auto) Baso % (Auto) Lymph # (Auto) [place] # (Auto) Eos # (Auto) Baso # (Auto) Absolute Neuts (auto) Sodium 139 Potassium 4.5 Chloride 109 H Carbon Dioxide 23 Anion Gap 11 BUN 66 H Creatinine 0.9 Est GFR ( Amer) > 60 Est GFR (Non-Af Amer) > 60 Random Glucose 132 H Calcium 8.1 L Total Bilirubin 0.4 AST 40 ALT 24 Alkaline Phosphatase 62 Total Protein 6.3 Albumin 2.8 L Globulin 3.5 Albumin/Globulin Ratio 0.8 L Blood Type A POSITIVE Antibody Screen Negative Crossmatch See Detail BBK History Checked No verified bt 01/27/19 01/27/19 09:30 20:40 WBC 10.5 RBC 3.42 L Hgb 10.0 L D Hct 30.6 L MCV 89.5 D MCH 29.2 MCHC 32.7 RDW 19.6 H Plt Count 196 MPV 8.8 Neut % (Auto) 78.8 H Lymph % (Auto) 10.8 L [place] % (Auto) 10.3 H Eos % (Auto) 0.0 L Baso % (Auto) 0.1 Lymph # (Auto) 1.1 L [place] # (Auto) 1.1 H Eos # (Auto) 0.0 Baso # (Auto) 0.01 Absolute Neuts (auto) 8.27 H Sodium Potassium Chloride Carbon Dioxide Anion Gap BUN Creatinine Est GFR ( Amer) Est GFR (Non-Af Amer) Random Glucose Calcium Total Bilirubin AST ALT Alkaline Phosphatase Total Protein Albumin Globulin Albumin/Globulin Ratio Blood Type A POSITIVE Antibody Screen Negative Crossmatch See Detail BBK History Checked Patient has bt Attending/Attestation - Attestation I have personally seen and examined this patient.: Yes I have fully participated in the care of the patient.: Yes I have reviewed all pertinent clinical information: Yes Notes (Text): This is a delayed addendum to the consultation report dictated by the GI fellow. The patient was seen in the area along with the fellow. CAT scan was reviewed. Discussed with the Dr. Church. Significant fecal impaction extending all the way up to the descending colon large amount of stool present. Coffee-ground material noticed in the G-tube. On antibiotics for probable UTI. Plan We will start the patient on MiraLAX and also a new mass to clear of this large fecal impaction 01/27/19 22:35
[2019-01-26] MEDS: Vasopressin 20 UNITS in Dextrose 5% In Water 100 ML IV SCH (15:32)
--- NOTE | 2019-01-26 19:06 | CARD ---
APPROVED REPORT Date of service: 01/25/2019 EKG Measurement Heart [id number] <Conclusion> Sinus tachycardia Right bundle branch block Nonspecific ST abnormality Abnormal ECG
[2019-01-26] MEDS ORDERED: Sodium Chloride 0.9% 1,000 ML IV STA (19:13)
[2019-01-27] MEDS: Sodium Chloride 0.45% 1,000 ML IV SCH ×2 (00:54→07:35)
--- NOTE | 2019-01-27 01:40 | CON ---
DATE: 01/26/2019 CONSULTATION REPORT The patient is seen and examined at bedside. HISTORY OF PRESENT ILLNESS: This is an 88-year-old gentleman with history of COPD, atrial fibrillation, CVA with right-sided weakness, hypothyroidism, dementia, who presented to [facility] from group home for failure to thrive and not feeling well. He was found to have coffee-ground residuals in his feeding tube. He was also more lethargic than usual. The patient received 1 unit of PRBC and one bag of platelets with adequate response in his hemoglobin level (from 7.9-9.7). The patient did not have any overt episodes of upper or lower GI bleeding since admission to [facility]. On abdominal x-ray, the patient was found to have dilated large bowel loops and questionable free air under the diaphragm. It was followed up with CAT scan which did not reveal any free air under the diaphragm; however, it showed severe fecal impaction with dilatation of the large bowel loops as well as rectum. GI consult is in process and appreciated. No upper endoscopy is planned; however, manual disimpaction followed up with tap water enema was suggested. PAST MEDICAL HISTORY: COPD, BPH, atrial fibrillation, CVA with right-sided weakness, dementia, seizure disorder, dysphagia, hypothyroidism. PAST SURGICAL HISTORY: PEG tube placement. FAMILY HISTORY: Noncontributory. SOCIAL HISTORY: No alcohol or illicit drug abuse. No tobacco smoking. ALLERGIES: NKDA. MEDICATIONS: Normal saline at 6 mL/hr, Atrovent every 6 hours, Xopenex every 6 hours, norepinephrine, Zosyn, Protonix drip, vancomycin. REVIEW OF SYSTEMS: Review of 12-organ system other than mentioned in the history of present illness, is negative. PHYSICAL EXAMINATION: VITAL SIGNS: The patient is on 8 mcg/min of Levophed. His blood pressure on that is 114/62, heart rate 92, oxygen saturation 96%, respiratory rate 28. HEENT: Head and neck, atraumatic. LUNGS: Clear to auscultation bilaterally. HEART: Regular rate and rhythm. S1, S2 normal. ABDOMEN: Soft, nontender, nondistended. MUSCULOSKELETAL: No C/C/E. NEURO: The patient moves all extremities spontaneously; however, has right-sided weakness. SKIN: Moist. PSYCHIATRIC: The patient is pleasantly confused, somewhat lethargic. LABORATORY DATA: WBC 19.4, hemoglobin 9.7, platelet count 342. Sodium 138, potassium 4.6, chloride 104, carbon dioxide 26, BUN 92, creatinine 1, down from 1.1; glucose 128, AST 38, ALT 19, total bilirubin 0.9. A VBG showed pH of 7.28; however, lactic acidosis resolved with lactic acid level 1.9, down from 3.9. DIAGNOSTIC TESTS: Chest x-ray showed no active disease. CAT scan of the abdomen and pelvis revealed severe constipation with fecal impaction. The rectum was dilated to a diameter of 10 cm. ASSESSMENT AND PLAN: This is an 88-year-old gentleman who presented with failure to thrive, acute kidney injury, and increased lethargy, most likely secondary to severe sepsis due to urinary tract infection, complicated by ileus and subsequent fecal impaction with potential microbial transluminal translocation. At the present time, the patient does require a small dose of vasopressor (norepinephrine 8 mcg/min) to maintain adequate perfusion pressure. He was fluid resuscitated with resolution of lactic acidosis and shows significant improvement in renal function. At the present time, we will continue with IV fluids, n.p.o., manual disimpaction, and subsequent tap water enema as per GI recommendation. We will continue with broad-spectrum antibiotics until septic workup reveals more precise information about origin and type of bacteria involved. Infectious Disease Services on board. I will proceed with norepinephrine, vasopressin, and stress dose steroids. We will continue to maintain euvolemia, euglycemia, normothermia, and oxygen saturation more than 90%. The patient responded appropriately to PRBC transfusion. No upper endoscopy is planned. We will continue with DVT, GI prophylaxis. We will maintain blood glucose within 140-180 range according to night sugar trial and avoid hypoglycemia. Addendum: manual disimpaction performed, large quantity of stool after tap water enema came out. 1L NS bolus was given, NE down to 6 mcg/min ccm time 40 min Josh Church MD [facility]
[2019-01-27] MEDS: Ipratropium 0.02% Inhal Soln (0.5 mg/2.5 ml) UD IH SCH ×4 (01:52→20:27)
[2019-01-27] MEDS: Levalbuterol 1.25 MG/3 ML Inhal Soln UD IH SCH ×4 (01:52→20:28)
[2019-01-27] MEDS: Vasopressin 20 UNITS in Dextrose 5% In Water 100 ML IV SCH (02:33)
--- NOTE | 2019-01-27 07:01 | CP.CCUPN ---
<Osman Tipton - Last Filed: 01/27/19 12:19> CCU Subjective - Physician Review Events Since Last Encounter (Free Text): 01/27/19 06:58 no acute events overnight Subjective (Free Text): 01/26/19 07:27 Pt seen and examined, pt opens eyes to commands, does not respond, non verbal at baseline 01/27/19 07:00 pt seen and examined this morning, pt does not follow commands, uncooperative, NAD CCU Objective - Vital Signs / Intake & Output Vital Signs (Last 4 hours): Vital Signs Pulse 01/27/19 04:00 70 Intake and Output (Last 8hrs): Intake & Output 01/26/19 01/26/19 01/27/19 14:59 22:59 06:59 Intake Total 280 1785 Output Total 800 Balance 280 985 Intake: IV 280 1785 0.5 ns 570 abx 350 levo 394 protonix 220 vasopressin 31 Output: Gastric Amount 100 Stomach 100 Urine 700 Urethral (Lucas) 700 Other: # Bowel Movements 1 - Physical Exam Head: Positive for: Atraumatic, Normocephalic Pupils: Positive for: PERRL Extroacular Muscles: Positive for: EOMI Ears: Positive for: Normal Mouth: Positive for: Moist Mucous Membranes Pharnyx: Positive for: Normal Nose (External): Positive for: Atraumatic Neck: Positive for: Normal Range of Motion. Negative for: Meningeal Signs Respiratory/Chest: Positive for: Clear to Auscultation, Good Air Exchange. Negative for: Respiratory Distress, Accessory Muscle Use, Wheezes, Decreased Breath Sounds Cardiovascular: Positive for: Regular Rate and Rhythm, Normal S1, S2, Peripheal Pulses Present. Negative for: Murmurs Abdomen: Positive for: Normal Bowel Sounds, Other (PEG tube in place). Negative for: Tenderness, Distention, Peritoneal Signs, Rebound, Guarding Upper Extremity: Positive for: Normal Inspection. Negative for: Cyanosis, Edema Lower Extremity: Positive for: Normal Inspection. Negative for: Edema Skin: Positive for: Normal Color - Medications Active Medications: Active Medications Generic Name Dose Route Start Last Admin Trade Name Freq PRN Reason Stop Dose Admin Hydrocortisone Sodium Succinate 50 mg 01/26/19 14:45 01/27/19 02:35 Solu-Cortef IVP 50 mg Q6H RICCO Administration Sodium Chloride 1,000 mls @ 60 mls/hr 01/25/19 22:00 01/27/19 00:54 Sodium Chloride 0.45% IV 60 mls/hr .[id number] RICCO Administration Vancomycin HCl 1 gm in 250 mls @ 167 mls/hr 01/26/19 10:00 01/26/19 10:06 Vancomycin 1gm IVPB 167 mls/hr DAILY RICCO Administration Protocol NOREPINEPHRINE BIT/0.9 % NACL 4 mg in 250 mls @ 15 mls/hr 01/25/19 23:44 01/26/19 21:11 Levophed 4 Mg/ 250 Ml Ns Premixed IV 6 mcg/min .[id number] PRN 22.5 mls/hr TITRATE PER MD ORDER Administration Protocol 4 MCG/MIN Vasopressin 20 units/ Dextrose 101 mls @ 9.09 mls/hr 01/26/19 14:45 01/27/19 02:33 IV 9.09 mls/hr .[id number] RICCO Administration Protocol 0.03 U/MIN Ipratropium [place] 0.5 mg 01/26/19 02:00 01/27/19 01:52 Atrovent IH 0.5 mg [id number] RICCO Administration Levalbuterol HCl 1.25 mg 01/26/19 02:00 01/27/19 01:52 Xopenex IH 1.25 mg [id number] RICCO Administration Pantoprazole Sodium 40 mg 01/26/19 22:00 01/26/19 21:05 Protonix Inj IVP 40 mg Q12 RICCO Administration - Patient Studies Lab Studies: Microbiology Studies 01/25/19 21:10 Blood Culture - Preliminary Blood NO GROWTH AFTER 24 HOURS 01/25/19 20:40 Blood Culture - Preliminary Blood NO GROWTH AFTER 24 HOURS Lab Studies 01/26/19 01/26/19 01/26/19 Range/Units 08:10 07:45 07:45 WBC 19.4 H (4.5-11.0) 10^3/uL RBC 3.12 L (3.5-6.1) 10^6/uL Hgb 9.7 L (14.0-18.0) g/dL Hct 30.0 L (42.0-52.0) % MCV 96.2 D (80.0-105.0) fl MCH 31.1 (25.0-35.0) pg MCHC 32.3 (31.0-37.0) g/dl RDW 15.7 H (11.5-14.5) % Plt Count 342 (120.0-450.0) 10^3/uL MPV 8.8 (7.0-11.0) fl pO2 37 (30-55) mm/Hg VBG pH 7.28 L (7.32-7.43) VBG pCO2 62.0 H (40-60) VBG HCO3 29.1 H (21-28) mmol/l VBG Total CO2 31.0 H (22-28) mmol.L VBG O2 Sat (Calc) 66.5 H (40-65) % VBG Base Excess 0.8 (0.0-2.0) mmol/L VBG Potassium 4.8 (3.6-5.2) mmol/L Glucose 135 H (75-110) mg/dl Lactate 1.9 (0.7-2.1) mmol/L FiO2 21.0 % Sodium 139.0 138 (132-148) mmol/L Potassium 4.6 (3.6-5.0) mmol/L Chloride 103.0 104 (98-107) mmol/L Carbon Dioxide 26 (21-33) mmol/L Anion Gap 13 (10-20) BUN 92 H (7-21) mg/dL Creatinine 1.0 (0.8-1.5) mg/dl Est GFR ( Amer) > 60 Est GFR (Non-Af Amer) > 60 Random Glucose 128 H (70-110) mg/dL Calcium 8.7 (8.4-10.5) mg/dL Total Bilirubin 0.9 (0.2-1.3) mg/dL AST 38 (17-59) U/L ALT 19 (7-56) U/L Alkaline Phosphatase 54 (38-126) U/L Total Protein 7.3 (5.8-8.3) g/dL Albumin 3.4 (3.0-4.8) g/dL Globulin 3.9 gm/dL Albumin/Globulin Ratio 0.9 L (1.1-1.8) Procalcitonin (0.19-0.49) NG/ML Venous Blood Potassium 4.8 (3.6-5.2) mmol/L 01/25/19 Range/Units 20:40 WBC (4.5-11.0) 10^3/uL RBC (3.5-6.1) 10^6/uL Hgb (14.0-18.0) g/dL Hct (42.0-52.0) % MCV (80.0-105.0) fl MCH (25.0-35.0) pg MCHC (31.0-37.0) g/dl RDW (11.5-14.5) % Plt Count (120.0-450.0) 10^3/uL MPV (7.0-11.0) fl pO2 (30-55) mm/Hg VBG pH (7.32-7.43) VBG pCO2 (40-60) VBG HCO3 (21-28) mmol/l VBG Total CO2 (22-28) mmol.L VBG O2 Sat (Calc) (40-65) % VBG Base Excess (0.0-2.0) mmol/L VBG Potassium (3.6-5.2) mmol/L Glucose (75-110) mg/dl Lactate (0.7-2.1) mmol/L FiO2 % Sodium (132-148) mmol/L Potassium (3.6-5.0) mmol/L Chloride (98-107) mmol/L Carbon Dioxide (21-33) mmol/L Anion Gap (10-20) BUN (7-21) mg/dL Creatinine (0.8-1.5) mg/dl Est GFR ( Amer) Est GFR (Non-Af Amer) Random Glucose (70-110) mg/dL Calcium (8.4-10.5) mg/dL Total Bilirubin (0.2-1.3) mg/dL AST (17-59) U/L ALT (7-56) U/L Alkaline Phosphatase (38-126) U/L Total Protein (5.8-8.3) g/dL Albumin (3.0-4.8) g/dL Globulin gm/dL Albumin/Globulin Ratio (1.1-1.8) Procalcitonin 0.42 (0.19-0.49) NG/ML Venous Blood Potassium (3.6-5.2) mmol/L Laboratory Results - last 24 hr 01/25/19 01/26/19 01/26/19 20:40 07:45 07:45 WBC 19.4 H RBC 3.12 L Hgb 9.7 L Hct 30.0 L MCV 96.2 D MCH 31.1 MCHC 32.3 RDW 15.7 H Plt Count 342 MPV 8.8 pO2 VBG pH VBG pCO2 VBG HCO3 VBG Total CO2 VBG O2 Sat (Calc) VBG Base Excess VBG Potassium Glucose Lactate FiO2 Sodium 138 Potassium 4.6 Chloride 104 Carbon Dioxide 26 Anion Gap 13 BUN 92 H Creatinine 1.0 Est GFR ( Amer) > 60 Est GFR (Non-Af Amer) > 60 Random Glucose 128 H Calcium 8.7 Total Bilirubin 0.9 AST 38 ALT 19 Alkaline Phosphatase 54 Total Protein 7.3 Albumin 3.4 Globulin 3.9 Albumin/Globulin Ratio 0.9 L Procalcitonin 0.42 Venous Blood Potassium 01/26/19 08:10 WBC RBC Hgb Hct MCV MCH MCHC RDW Plt Count MPV pO2 37 VBG pH 7.28 L VBG pCO2 62.0 H VBG HCO3 29.1 H VBG Total CO2 31.0 H VBG O2 Sat (Calc) 66.5 H VBG Base Excess 0.8 VBG Potassium 4.8 Glucose 135 H Lactate 1.9 FiO2 21.0 Sodium 139.0 Potassium Chloride 103.0 Carbon Dioxide Anion Gap BUN Creatinine Est GFR ( Amer) Est GFR (Non-Af Amer) Random Glucose Calcium Total Bilirubin AST ALT Alkaline Phosphatase Total Protein Albumin Globulin Albumin/Globulin Ratio Procalcitonin Venous Blood Potassium 4.8 Radiology Impressions: Radiology Impressions Abdomen/Pelvis CT 01/26/19 07:24 IMPRESSION: Severe constipation with fecal impaction. The rectum is dilated to a diameter of 10 cm Assessment/Plan - Assessment and Plan (Free Text) Assessment: Pt is an 88 yo male with a PMH of atrial fibrillation, COPD, dysphagia with PEG tube, dementia and sacral ulcer who presented from detention with failure to thrive and a coffee ground substance in his PEG tube. Pt admitted to the ICU for management of urosepsis and possible GI bleed. Plan: Neuro - dementia, non verbal at baseline, CVA, seizures, depression - monitor for changes in mental status Cardio - atrial fibrillation, HTN, CAD, s/p AICD - central line in place - wean from levophed - vasopressin 0.03 - maintain MAP>65 Pulm - COPD - levauterol and atrovent GI - GI bleed - dysphagia with PEG tube - 1 unit of pRBC and plts given, will continue to monitor H/H - protonix drip stopped - transition to q12 IVP protonix - pt disimpacted, and given tap water enema, will continue tap water enemas daily - Surgery consulted, Dr Jones - GI consulted, Dr Selby Nephro/ - BPH - monitor electrolytes - monitor BUN/Cr 66/0.9 Heme/ Onc - Hgb 7.9 to 9.7, hyper response to 1 unit of pRBC - Hgb 7.3 today - continue to monitor - will transfuse if necessary - INR 1.33 ID - sacral ulcer, urosepsis - WBC 11.8 - UA mod LE, WBC 5-10 - blood cultrues NGTD - follow up urine culture - hydrocortisone - vanc, zosyn - ID consulted, Dr Mccurdy Endo - hypothyroidsim - maintain euglycemia Pt seen, examined, assessment and plan discussed with Dr Ranjit Tipton PGY1 - Date & Time Date: 01/27/19 Time: 07:02 <Josh Church - Last Filed: 01/27/19 12:47> CCU Objective - Vital Signs / Intake & Output Vital Signs (Last 4 hours): Vital Signs Temp Pulse Resp BP 01/27/19 12:02 95/46 L 01/27/19 11:03 98.6 F 54 L 19 101/49 L 01/27/19 10:45 99 F 65 24 101/55 L Intake and Output (Last 8hrs): Intake & Output 01/26/19 01/27/19 01/27/19 22:59 06:59 14:59 Intake Total 1785 410 15 Output Total 800 230 Balance 985 180 15 Intake: IV 1785 410 15 0.5 ns 570 72 abx 350 levo 394 240 protonix 220 vasopressin 31 98 Blood Product 0 Red Blood Cells Cpd As1 0 Lr Unit [id number] Output: Gastric Amount 100 30 Stomach 100 30 Urine 700 200 Urethral (Lucas) 700 200 Other: # Bowel Movements 1 - Medications Active Medications: Active Medications Generic Name Dose Route Start Last Admin Trade Name Freq PRN Reason Stop Dose Admin Hydrocortisone Sodium Succinate 50 mg 01/27/19 22:00 Solu-Cortef IVP Q12 RICCO Sodium Chloride 1,000 mls @ 60 mls/hr 01/25/19 22:00 01/27/19 07:35 Sodium Chloride 0.45% IV 60 mls/hr .[id number] RICCO Administration Vancomycin HCl 1 gm in 250 mls @ 167 mls/hr 01/26/19 10:00 01/27/19 09:01 Vancomycin 1gm IVPB 167 mls/hr DAILY RICCO Administration Protocol Piperacillin Sod/Tazobactam Sod 4.5 gm in 100 mls @ 25 mls/hr 01/27/19 14:00 Zosyn 4.5 Gm In Ns 100ml IVPB 02/04/19 14:01 Q8 ON LICENSE OF [facility] Protocol Ipratropium [place] 0.5 mg 01/26/19 02:00 01/27/19 07:31 Atrovent IH 0.5 mg [id number] RICCO Administration Levalbuterol HCl 1.25 mg 01/26/19 02:00 01/27/19 07:31 Xopenex IH 1.25 mg [id number] ON LICENSE OF [facility] Administration Midodrine 10 mg 01/27/19 14:00 Proamatine PO TID RICCO Pantoprazole Sodium 40 mg 01/26/19 22:00 01/27/19 09:02 Protonix Inj IVP 40 mg Q12 RICCO Administration Polyethylene Glycol 17 gm 01/27/19 14:00 Miralax PEG TID ON LICENSE OF [facility] - Patient Studies Lab Studies: Microbiology Studies 01/25/19 21:10 Blood Culture - Preliminary Blood NO GROWTH AFTER 24 HOURS 01/25/19 20:40 Blood Culture - Preliminary Blood NO GROWTH AFTER 24 HOURS Lab Studies 01/27/19 01/27/19 01/27/19 Range/Units 09:30 06:20 06:20 WBC 11.8 H D (4.5-11.0) 10^3/uL RBC 2.38 L (3.5-6.1) 10^6/uL Hgb 7.3 L D (14.0-18.0) g/dL Hct 23.0 L (42.0-52.0) % MCV 96.6 (80.0-105.0) fl MCH 30.7 (25.0-35.0) pg MCHC 31.7 (31.0-37.0) g/dl RDW 16.5 H (11.5-14.5) % Plt Count 299 (120.0-450.0) 10^3/uL MPV 9.0 (7.0-11.0) fl Sodium 139 (132-148) mmol/L Potassium 4.5 (3.6-5.0) mmol/L Chloride 109 H (98-107) mmol/L Carbon Dioxide 23 (21-33) mmol/L Anion Gap 11 (10-20) BUN 66 H (7-21) mg/dL Creatinine 0.9 (0.8-1.5) mg/dl Est GFR ( Amer) > 60 Est GFR (Non-Af Amer) > 60 Random Glucose 132 H (70-110) mg/dL Calcium 8.1 L (8.4-10.5) mg/dL Total Bilirubin 0.4 (0.2-1.3) mg/dL AST 40 (17-59) U/L ALT 24 (7-56) U/L Alkaline Phosphatase 62 (38-126) U/L Total Protein 6.3 (5.8-8.3) g/dL Albumin 2.8 L (3.0-4.8) g/dL Globulin 3.5 gm/dL Albumin/Globulin Ratio 0.8 L (1.1-1.8) Procalcitonin (0.19-0.49) NG/ML Blood Type A POSITIVE Antibody Screen Negative Crossmatch See Detail BBK History Checked Patient has bt 01/25/19 01/25/19 Range/Units 22:50 20:40 WBC (4.5-11.0) 10^3/uL RBC (3.5-6.1) 10^6/uL Hgb (14.0-18.0) g/dL Hct (42.0-52.0) % MCV (80.0-105.0) fl MCH (25.0-35.0) pg MCHC (31.0-37.0) g/dl RDW (11.5-14.5) % Plt Count (120.0-450.0) 10^3/uL MPV (7.0-11.0) fl Sodium (132-148) mmol/L Potassium (3.6-5.0) mmol/L Chloride (98-107) mmol/L Carbon Dioxide (21-33) mmol/L Anion Gap (10-20) BUN (7-21) mg/dL Creatinine (0.8-1.5) mg/dl Est GFR ( Amer) Est GFR (Non-Af Amer) Random Glucose (70-110) mg/dL Calcium (8.4-10.5) mg/dL Total Bilirubin (0.2-1.3) mg/dL AST (17-59) U/L ALT (7-56) U/L Alkaline Phosphatase (38-126) U/L Total Protein (5.8-8.3) g/dL Albumin (3.0-4.8) g/dL Globulin gm/dL Albumin/Globulin Ratio (1.1-1.8) Procalcitonin 0.42 (0.19-0.49) NG/ML Blood Type A POSITIVE Antibody Screen Negative Crossmatch See Detail BBK History Checked No verified bt Laboratory Results - last 24 hr 01/25/19 01/25/19 01/27/19 20:40 22:50 06:20 WBC 11.8 H D RBC 2.38 L Hgb 7.3 L D Hct 23.0 L MCV 96.6 MCH 30.7 MCHC 31.7 RDW 16.5 H Plt Count 299 MPV 9.0 Sodium Potassium Chloride Carbon Dioxide Anion Gap BUN Creatinine Est GFR ( Amer) Est GFR (Non-Af Amer) Random Glucose Calcium Total Bilirubin AST ALT Alkaline Phosphatase Total Protein Albumin Globulin Albumin/Globulin Ratio Procalcitonin 0.42 Blood Type A POSITIVE Antibody Screen Negative Crossmatch See Detail BBK History Checked No verified bt 01/27/19 01/27/19 06:20 09:30 WBC RBC Hgb Hct MCV MCH MCHC RDW Plt Count MPV Sodium 139 Potassium 4.5 Chloride 109 H Carbon Dioxide 23 Anion Gap 11 BUN 66 H Creatinine 0.9 Est GFR ( Amer) > 60 Est GFR (Non-Af Amer) > 60 Random Glucose 132 H Calcium 8.1 L Total Bilirubin 0.4 AST 40 ALT 24 Alkaline Phosphatase 62 Total Protein 6.3 Albumin 2.8 L Globulin 3.5 Albumin/Globulin Ratio 0.8 L Procalcitonin Blood Type A POSITIVE Antibody Screen Negative Crossmatch See Detail BBK History Checked Patient has bt Attending/Attestation - Attestation I have personally seen and examined this patient.: Yes I have fully participated in the care of the patient.: Yes I have reviewed all pertinent clinical information: Yes Notes (Text): 01/27/19 12:[address] Church note
[2019-01-27 07:18] LABS: HEMOGLOBIN 7.3 g/dL (14.0-18.0); MEAN CELL VOLUME 96.6 fl (80.0-105.0); MEAN CORPUSCULAR HEMOGLOBIN 30.7 pg (25.0-35.0); MEAN CORPUSCULAR HGB CONC 31.7 g/dl (31.0-37.0); RBC 2.38 10^6/uL (3.5-6.1); RED CELL DISTRIBUTION WIDTH 16.5 % (11.5-14.5); WHITE BLOOD COUNT 11.8 10^3/uL (4.5-11.0)
--- NOTE | 2019-01-27 07:21 | CP.PCM.PN ---
Subjective - Date & Time of Evaluation Date of Evaluation: 01/27/19 Time of Evaluation: 07:05 - Subjective Subjective: General surgery progress note for Dr. Catherine Christian, PGY-2 Pt seen/examined at bedside with surgical site Pt awake, alert, making non sensical sounds. GCS 12. Continues on levophed, vasopressin with MAP>65. UOP 400cc/12 hrs- less purulent now. PEG with 30 cc dark blackish liquid output/12 hrs. Otherwise with some hypotension overnight. Objective - Vital Signs/Intake and Output Vital Signs (last 24 hours): Temp Pulse Resp BP Pulse Ox 97.6 F 70 22 93/46 L 96 01/25/19 23:15 01/27/19 04:00 01/26/19 06:10 01/27/19 02:33 01/26/19 06:10 - Medications Medications: Current Medications Hydrocortisone Sodium Succinate (Solu-Cortef) 50 mg IVP Q6H RICCO Last Admin: 01/27/19 02:35 Dose: 50 mg Sodium Chloride (Sodium Chloride 0.45%) 1,000 mls @ 60 mls/hr IV .[id number] RICCO Last Admin: 01/27/19 00:54 Dose: 60 mls/hr Vancomycin HCl (Vancomycin 1gm) 1 gm in 250 mls @ 167 mls/hr IVPB DAILY RICCO; Protocol Last Admin: 01/26/19 10:06 Dose: 167 mls/hr NOREPINEPHRINE BIT/0.9 % NACL (Levophed 4 Mg/ 250 Ml Ns Premixed) 4 mg in 250 mls @ 15 mls/hr IV .[id number] PRN; Protocol PRN Reason: TITRATE PER MD ORDER Last Admin: 01/26/19 21:11 Dose: 6 mcg/min, 22.5 mls/hr Vasopressin 20 units/ Dextrose 101 mls @ 9.09 mls/hr IV .[id number] RICCO; Protocol Last Admin: 01/27/19 02:33 Dose: 9.09 mls/hr Piperacillin Sod/Tazobactam Sod (Zosyn 4.5 Gm In Ns 100ml) 4.5 gm in 100 mls @ 25 mls/hr IVPB Q8 RICCO; Protocol Stop: 02/04/19 14:01 Ipratropium [place] (Atrovent) 0.5 mg IH [id number] [facility] Last Admin: 01/27/19 01:52 Dose: 0.5 mg Levalbuterol HCl (Xopenex) 1.25 mg IH [id number] [facility] Last Admin: 01/27/19 01:52 Dose: 1.25 mg Pantoprazole Sodium (Protonix Inj) 40 mg IVP Q12 [facility] Last Admin: 01/26/19 21:05 Dose: 40 mg - Labs Labs: 01/26/19 07:45 01/26/19 07:45 PT 14.8 SECONDS (9.4-12.5) H 01/25/19 20:40 INR 1.33 01/25/19 20:40 APTT 36.5 Seconds (26.9-38.3) 01/25/19 20:40 - Constitutional Appears: Non-toxic, No Acute Distress - Head Exam Head Exam: ATRAUMATIC, NORMAL INSPECTION, NORMOCEPHALIC - Eye Exam Eye Exam: EOMI, Normal appearance - ENT Exam ENT Exam: Mucous Membranes Moist, Normal Exam - Neck Exam Additional comments: RIJ TLC in place - Respiratory Exam Respiratory Exam: NORMAL BREATHING PATTERN - Cardiovascular Exam Cardiovascular Exam: REGULAR RHYTHM, +S1, +S2 - GI/Abdominal Exam GI & Abdominal Exam: Soft. absent: Distended, Firm, Guarding, Rigid, Tenderness Additional comments: PEG tube in place; dressing -clean/dry/intact - Neurological Exam Neurological Exam: Alert, Awake. absent: Oriented x3 - Psychiatric Exam Additional comments: non sensical words - Skin Skin Exam: Normal Color, Warm Additional comments: ecchymoses over upper extremities Assessment and Plan - Assessment and Plan (Free Text) Assessment: 88M w/GI bleed, sepsis, likely due to urinary source Plan: Recommend GI intervention to evaluate for bleeding Continue bowel regimen Continue ABx/IVF Titrate off pressors when meets criteria Abdominal exam benign No acute surgical intervention at this time Will DW Dr. Robert Christian, PGY-2
[2019-01-27 07:40] LABS: ALB/GLOB RATIO 0.8 (1.1-1.8); ALBUMIN 2.8 g/dL (3.0-4.8); ALT/SGPT 24 U/L (7-56); AST/SGOT 40 U/L (17-59); BLOOD UREA NITROGEN 66 mg/dL (7-21); CALCIUM 8.1 mg/dL (8.4-10.5); GFR NON-AFRICAN AMERICAN > 60
--- NOTE | 2019-01-27 08:22 | CON ---
DATE: 01/26/2019 LOCATION: The patient was seen earlier today in room 129, bed 6. CHIEF COMPLAINT: Weakness times 1 day. HISTORY OF PRESENT ILLNESS: This is an 88-year-old male who is at the longterm, [facility]. He had coffee-ground material from his G-tube. The patient has a PEG tube. The patient has a history of cerebrovascular accident with right-sided weakness. He does not verbalize. He was ambulatory to some degree according to the patient's daughter. Hypertension, chronic obstructive lung disease, BPH, hypothyroidism, history of seizures, depression who was admitted with the diagnoses of hypotension and sepsis. The patient does not verbalize. The patient's daughter gives us the history. REVIEW OF SYSTEMS: A 12-point review of systems is performed. PAST MEDICAL HISTORY: Significant for cerebrovascular accident, hypothyroidism, hypertension, atrial fibrillation, coronary artery disease, dementia, depression, chronic obstructive lung disease, seizures, and BPH. PAST SURGICAL HISTORY: The patient had a PEG tube placement. ALLERGIES: THE PATIENT HAS NO KNOWN ALLERGIES. MEDICATIONS: At the longterm were reviewed. PHYSICAL EXAMINATION GENERAL: The patient is in bed, appearing chronically ill and cachectic, endstage, does not verbalize. VITAL SIGNS: Temperature of 99.7, pulse was up to 104, respiratory rate of 22. Blood pressure is 102/50, it was as low as 80/47, down to 78 blood pressure. HEENT: Unremarkable. NECK: Supple. LUNGS: Decreased breath sounds. HEART: Normal S1 and S2. ABDOMEN: Soft and nontender. No rebound, no guarding. No evidence of infection at the PEG tube site, it appears to be clean. LABORATORY DATA: Reveals a white count of 26,000, the patient with 9% bandemia, 90% neutrophils. Coagulation is noted. Blood gases are reviewed. Chemistries reveal a BUN of 106 with a creatinine of 1.1. LDH is 292, procalcitonin is 0.42. Urinalysis is noted with 5 to 10 wbc's. Microbiology is pending. The patient has a CAT scan of the abdomen and pelvis, severe constipation with fecal impaction is noted. The patient's chest x-ray initially showed vascular congestion, reticular opacities, right pleural effusion. Repeat chest x-ray from yesterday showed diffuse reticular opacities that are more prominent at the mid and lower portion. REVIEW OF ORDERS: Revealed the patient to have received vancomycin and Zosyn. Throat cultures, urine cultures, and MRSA screen are pending. Dr. Devonte Richardson's consultation is reviewed. The patient is on Levophed. ASSESSMENT AND PLAN: This is an 88-year-old longterm male with percutaneous endoscopic gastrostomy tube and history of cerebrovascular accident, hypertension, atrial fibrillation, chronic obstructive lung disease, who is admitted now with septic shock with leukocytosis, tachycardia, dyspnea, hypotension, and positive infiltrates in chest with septic shock that is secondary to healthcare-associated aspiration pneumonia, on vancomycin and Zosyn, on vasopressors. Pending aguayo culture results, blood, urine, sputum, nasal methicillin-resistant Staphylococcus aureus screen. We will follow with you and make further recommendations upon availability of initial results. Prognosis is quite poor. The case was discussed with the patient's daughter at length. Evelio Mccurdy MD
[2019-01-27] MEDS: Vancomycin 1gm in NS 250ml 1 GM/250 ML BAG IVPB SCH (09:01)
[2019-01-27] MEDS ORDERED: NuLYTELY (NACL/NAHCO3/KCL/PEG) 4L PO SCH (10:45)
[2019-01-27] MEDS ORDERED: Sodium Chloride 0.9% 1,000 ML IV STA (11:02)
[2019-01-27] MEDS ORDERED: POLYETHYLENE GLYCOL 3350 17 GM/Dose PACKET PEG SCH ×2 (11:15→14:00)
--- NOTE | 2019-01-27 13:14 | PN ---
DATE: 01/27/2019 SUBJECTIVE: The patient was seen in bed, in no acute distress. The patient is much better today. He is responsive. He follows commands, although he does not verbalize. I have asked him to bring up his left arm and he did so. PHYSICAL EXAMINATION: VITAL SIGNS: Temperature is 99, blood pressure is 93/40, respiratory rate of 18 upto 22 and pulse rate of 70. HEENT: Unremarkable. NECK: Supple. LUNGS: Decreased breath sounds. HEART: Normal, S1 and S2. ABDOMEN: Soft and nontender. LABORATORY DATA: Reveals a blood culture is negative. White count is down to 11,800 and hemoglobin of 7. BUN is 66 and creatinine 0.9. Procalcitonin is 0.42. Urinalysis is noted, 5-10 WBC's and microbiology reveals the blood cultures are negative. ASSESSMENT AND PLAN: This is an 88-year-old male from the [facility] with percutaneous endoscopic gastrostomy tube and history of cerebrovascular accident, hypertension, atrial fibrillation, chronic obstructive lung disease admitted with septic shock, leukocytosis, tachycardia, dyspnea, infiltrates on the chest with septic shock secondary to health-care associated aspiration pneumonia on vancomycin and Zosyn on vasopressors and awaiting for final culture results, although the procalcitonin is normal, continue the present course with vancomycin and Zosyn. Awaiting for urine cultures, sputum cultures, methicillin-resistant Staphylococcus aureus screen. The patient is on hydrocortisone 50 mg IV every 6 hours. Evelio Mccurdy MD
--- NOTE | 2019-01-27 14:11 | PN ---
DATE: 01/27/2019 SUBJECTIVE: I saw him in the intensive care unit. He is more alert today. He is actually looking at me. He tried to talk a couple of words. This is good for him. He was extremely constipated when he came into the hospital. He is doing much better now after enemas and treatment. He is on Zosyn, Xopenex, vasopressin, vancomycin, Solu-Cortef, IV fluids, Protonix, Levophed and Atrovent. PHYSICAL EXAMINATION: GENERAL: His eyes are open. He is looking at me. He is trying to talk. He did move his left arm a little bit. 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 He does have difficulty talking. VITAL SIGNS: He has a 97.6 temp, 90 pulse, 121/66 blood pressure, 20 respiratory rate, 100% O2 sat. HEENT: Head is atraumatic, normocephalic. He is looking at me, more alert. Throat is dry. NECK: Supple. HEART: Regular rate. LUNGS: Decreased breath sounds, but clear. ABDOMEN: Soft. EXTREMITIES: No edema. Right side is flaccid. The left side, he can move. He is trying to move a little bit better. LABORATORY DATA: He has a white count of 11.8, coming down, it was as high as 26.5; hemoglobin is 7.3, I am going to transfuse him two units; hematocrit is 23, platelets of 299. Lactate down to 1.9, it was as high as 3.9. Sodium 139, potassium 4.5, BUN 66, creatinine is 0.9, coming down also. GFR is greater than 60, sugar is 132, calcium is 8.1, total bili is 0.4, AST is 40, ALT is 24, alk phos is 52, total protein 6.3. He did have a UTI. ASSESSMENT AND PLAN: He is improving. He has being seen by Infectious Disease, the multifocal button grinder. He had severe constipation, septic shock, leukocytosis, hypotension, and we will continue with aggressive treatment and care in the intensive care unit. Art Espinosa DO [facility] # [id number]
[2019-01-27] MEDS: Piperacill/Tazo 4.5gm in NS 4.5 GM/100 ML BAG IVPB SCH ×2 (14:26→22:02)
--- NOTE | 2019-01-27 15:33 | CP.PCM.PN ---
<LyubovrasheedaKaronarlene - Last Filed: 01/27/19 16:38> Subjective - Date & Time of Evaluation Date of Evaluation: 01/27/19 Time of Evaluation: 12:20 - Subjective Subjective: PGY4 GI fellow progress note Patient somewhat more alert today. Nonetheless, still nonverbal. Hemoglobin down trended again but suspect some delusional component with all cell lines down. Unable to obtain review of systems due to clinical condition Objective - Vital Signs/Intake and Output Vital Signs (last 24 hours): Temp Pulse Resp BP Pulse Ox 98.7 F 75 18 96/52 L 96 01/27/19 14:57 01/27/19 14:57 01/27/19 14:57 01/27/19 14:57 01/26/19 06:10 Intake and Output: 01/27/19 01/27/19 06:59 18:59 Intake Total 410 390 Output Total 230 Balance 180 390 - Medications Medications: Current Medications Hydrocortisone Sodium Succinate (Solu-Cortef) 50 mg IVP Q12 [facility] Sodium Chloride (Sodium Chloride 0.45%) 1,000 mls @ 60 mls/hr IV [id number] [facility] Last Admin: 01/27/19 07:35 Dose: 60 mls/hr Vancomycin HCl (Vancomycin 1gm) 1 gm in 250 mls @ 167 mls/hr IVPB DAILY [facility]; Protocol Last Admin: 01/27/19 09:01 Dose: 167 mls/hr Piperacillin Sod/Tazobactam Sod (Zosyn 4.5 Gm In Ns 100ml) 4.5 gm in 100 mls @ 25 mls/hr IVPB Q8 [facility]; Protocol Stop: 02/04/19 14:01 Last Admin: 01/27/19 14:26 Dose: 25 mls/hr Ipratropium [place] (Atrovent) 0.5 mg IH [id number] [facility] Last Admin: 01/27/19 13:17 Dose: 0.5 mg Levalbuterol HCl (Xopenex) 1.25 mg IH [id number] [facility] Last Admin: 01/27/19 13:17 Dose: 1.25 mg Midodrine (Proamatine) 10 mg PO TID [facility] Pantoprazole Sodium (Protonix Inj) 40 mg IVP Q12 [facility] Last Admin: 01/27/19 09:02 Dose: 40 mg Polyethylene Glycol (Miralax) 17 gm PEG QID [facility] - Labs Labs: 01/27/19 06:20 01/27/19 06:20 PT 14.8 SECONDS (9.4-12.5) H 01/25/19 20:40 INR 1.33 01/25/19 20:40 APTT 36.5 Seconds (26.9-38.3) 01/25/19 20:40 - Constitutional Appears: Well, No Acute Distress, Confused, Chronically Ill - Head Exam Head Exam: ATRAUMATIC, NORMAL INSPECTION - Eye Exam Eye Exam: EOMI. absent: Scleral icterus - ENT Exam ENT Exam: Mucous Membranes Dry. absent: Mucous Membranes Moist - Respiratory Exam Respiratory Exam: NORMAL BREATHING PATTERN. absent: Accessory Muscle Use - GI/Abdominal Exam GI & Abdominal Exam: Soft. absent: Bruit, Distended, Firm, Guarding, Rigid, Tenderness Additional comments: PEG in place with some dark coffee-ground material within tubing and small amount and bedside bag Assessment and Plan - Assessment and Plan (Free Text) Assessment: 88-year-old white male with a past medical history of dementia, CVA, dysphagia status post PEG, atrial fibrillation, CAD presenting from nursing facility with altered mental status and coffee-ground output from PEG tube. #Coffee-ground output from PEG tube: All concerning for upper GI bleed given physical exam as well as elevated BUN. Hemoglobin 7.9 from unknown baseline. Hyper responded to 9 s/p 1 unit PRBC. Stool on ARDEN was not black nor red. Therefore, suspect pressor support perhaps related to sepsis component #Fecal impaction: Large amount of stool burden seen on CT with rectum dilated up to 10 cm. Manual disimpaction done but only with soft stool within digital reach which was subsequently evacuated #septic shock: Given the dirty UA concerning for urosepsis #Dementia, CVA, dysphagia status post PEG #atrial fibrillation, CAD, AICD Plan: PPI IV q 12 hrs Monitor hemoglobin Patient is currently a DNR/DNI; would need to reverse CODE STATUS should endoscopy be warranted Antibiotics and pressor support per primary/ICU Status post manual disimpaction MiraLAX 4 times a day Tapwater enemas every 12 hours Patient seen and examined with Dr. Selby; please see attestation for further recommendations/changes <Josiah Selby V - Last Filed: 02/02/19 19:43> Objective - Vital Signs/Intake and Output Vital Signs (last 24 hours): Temp Pulse Resp BP Pulse Ox 97.3 F L 61 18 135/82 100 02/02/19 14:00 02/02/19 14:00 02/02/19 14:00 02/02/19 14:00 02/02/19 14:00 - Labs Labs: 01/30/19 05:20 01/30/19 05:20 PT 13.9 SECONDS (9.4-12.5) H 01/28/19 15:00 INR 1.25 01/28/19 15:00 APTT 33.7 Seconds (26.9-38.3) 01/28/19 15:00 Attending/Attestation - Attestation I have personally seen and examined this patient.: Yes I have fully participated in the care of the patient.: Yes I have reviewed all pertinent clinical information, including history, physical exam and plan: Yes Notes (Text): This is a delayed addendum to the progress note dictated by the fellow. The patient was seen along with the GI fellow. Patient did have manual disimpaction done. Patient had significant fecal impaction with the distention. We will continue tap water enemas and also MiraLAX by by via the G-tube. Follow-up with hemoglobin 02/02/19 19:41
--- NOTE | 2019-01-27 16:44 | PN ---
DATE: 01/27/2019 SUBJECTIVE: The patient was seen and examined at bedside. He is alert, awake and following commands. He is off of vasopressin, off of norepinephrine. PHYSICAL EXAMINATION: VITAL SIGNS: Blood pressure 95/55 with mean arterial pressure 71, oxygen saturation 100% 2 liters nasal cannula, respiratory rate 28, heart rate 61. HEENT: Head and neck atraumatic. LUNGS: Clear to auscultation bilaterally. HEART: Regular rate and rhythm. S1 and S2. Normal. ABDOMEN: Soft, nontender, mildly distended. MUSCULOSKELETAL: No C/C/E. NEURO: The patient moves all extremities spontaneously. SKIN: Moist. PSYCH: The patient is alert and awake. LABORATORY DATA: WBC 11.8, down from 19.4; hemoglobin 7.3, down from 9.7; platelet count 299. Sodium 139, potassium 4.5, chloride 109, carbon dioxide 23, BUN 66, creatinine 0.9, down from 1, AST 40, ALT 24, total bilirubin 0.4. MEDICATIONS: Normal saline 6 mL/hour, hydrocortisone 50 mg IV every 12 hours, Xopenex every six, midodrine 10 mg p.o. t.i.d., Protonix, MiraLax, vancomycin, Zosyn. ASSESSMENT AND PLAN: This is an 88-year-old gentleman who presented to ICU with septic shock secondary to urinary tract infection complicated by ileus and subsequent fecal impaction, now status post manual disimpaction and large bowel movement. Presently, the patient is fluid resuscitated, hemodynamically and respiratory stable, off norepinephrine and vasopressin. I will proceed with midodrine and will continue with tapering off steroids that were started as stress dose. The patient was also ordered MiraLax as well. At present time, we will continue target euvolemia, glycemia, normothermia, and oxygen saturation more than 90%. The patient's acute kidney injury is resolved. He is more alert, awake and oriented. Continue with deep vein thrombosis, gastrointestinal prophylaxis. ccm time 40 min Josh Church MD FRANCA
[2019-01-27] MEDS: POLYETHYLENE GLYCOL 3350 17 GM/Dose PACKET PEG SCH ×2 (17:35→22:03)
[2019-01-27 20:55] LABS: BASO # 0.01 K/mm3 (0.0-2.0); BASO % 0.1 % (0.0-3.0); LYMPH # 1.1 (1.2-3.4); LYMPH % 10.8 % (22.0-35.0); MEAN CELL VOLUME 89.5 fl (80.0-105.0); MEAN CORPUSCULAR HEMOGLOBIN 29.2 pg (25.0-35.0); MEAN CORPUSCULAR HGB CONC 32.7 g/dl (31.0-37.0); MEAN PLATELET VOLUME 8.8 fl (7.0-11.0); MONO # 1.1 (0.1-0.6); MONO % 10.3 % (1.0-6.0); RBC 3.42 10^6/uL (3.5-6.1); RED CELL DISTRIBUTION WIDTH 19.6 % (11.5-14.5); WHITE BLOOD COUNT 10.5 10^3/uL (4.5-11.0)
[2019-01-28] MEDS: Levalbuterol 1.25 MG/3 ML Inhal Soln UD IH SCH ×4 (01:50→20:00)
[2019-01-28] MEDS: Ipratropium 0.02% Inhal Soln (0.5 mg/2.5 ml) UD IH SCH ×4 (01:50→20:00)
[2019-01-28] MEDS: Sodium Chloride 0.45% 1,000 ML IV SCH (05:43)
[2019-01-28] MEDS: Piperacill/Tazo 4.5gm in NS 4.5 GM/100 ML BAG IVPB SCH ×3 (05:43→22:25)
[2019-01-28 08:46] LABS: HEMOGLOBIN 10.2 g/dL (14.0-18.0); MEAN CORPUSCULAR HEMOGLOBIN 28.8 pg (25.0-35.0); MEAN CORPUSCULAR HGB CONC 32.4 g/dl (31.0-37.0); MEAN PLATELET VOLUME 8.6 fl (7.0-11.0); RBC 3.54 10^6/uL (3.5-6.1); RED CELL DISTRIBUTION WIDTH 20.1 % (11.5-14.5); WHITE BLOOD COUNT 9.9 10^3/uL (4.5-11.0)
[2019-01-28 08:56] LABS: ALB/GLOB RATIO 0.8 (1.1-1.8); ALBUMIN 2.8 g/dL (3.0-4.8); ALT/SGPT 30 U/L (7-56); AST/SGOT 35 U/L (17-59); BLOOD UREA NITROGEN 61 mg/dL (7-21); CALCIUM 7.8 mg/dL (8.4-10.5); GFR NON-AFRICAN AMERICAN > 60
--- NOTE | 2019-01-28 09:59 | RAD ---
Date of service: 01/28/2019 HISTORY: distention COMPARISON: None available. TECHNIQUE: 1 view obtained. FINDINGS: BOWEL: There is severe distention of the colon especially on the right side. There is severe fecal impaction. BONES: Normal. OTHER FINDINGS: None. IMPRESSION: There is severe distention of the colon especially on the right side. There is severe fecal impaction.
[2019-01-28] MEDS: POLYETHYLENE GLYCOL 3350 17 GM/Dose PACKET PEG SCH ×4 (10:19→22:24)
[2019-01-28] MEDS: Vancomycin 1gm in NS 250ml 1 GM/250 ML BAG IVPB SCH (10:22)
--- NOTE | 2019-01-28 12:05 | CP.PCM.PCO ---
Additional Comments - Additional Comments Additional Comments: Pt seen and examined. More awake today and in no acute distress. His abd is softly, distended. No output seen in PEG tube. Potassium noted and ordered replacement. Noted +MRSA on nares and started on Bactroban. Leukocytosis is improving, currently on Vanco IV and Zosyn per ID recs. Sputum cx is pending. Abd xray showed severe distention on R side and severe fecal impaction. GI on consult and increased Miralax to QID. Continue to monitor H/H. Per medical tech, will dc TLC today.
--- NOTE | 2019-01-28 12:24 | PN ---
DATE: 01/28/2019 SUBJECTIVE: I saw him in the intensive care unit. He was actually looking at me, much more alert, but his abdomen is very distended. He is in no apparent distress or pain. He gave me a thumbs-up sign, which is nice to see from him. He is on IV fluids, Atrovent, DuoNebs, Lasix, MiraLax, ProAmatine, Protonix, Solu-Cortex, vancomycin, Xopenex, and Zosyn. PHYSICAL EXAMINATION: GENERAL: He is alert. He is trying to talk to me. VITAL SIGNS: He has a 97 temp, 72 pulse, 112/54 blood pressure, 20 respiratory rate, 98% O2 sat on nasal cannula. HEENT: Head is atraumatic, normocephalic. His throat is moist. NECK: Supple. HEART: Regular rate. LUNGS: Decreased breath sounds, but clear. ABDOMEN: Soft. It was quite distended. It feels like there was a big air pocket in there, nontender, decreased bowel sounds but present. EXTREMITIES: Have no edema. The right side is weak from an old stroke. LABORATORY DATA: He has 10.5 white count, best it has been. It was as high as 26 when he came in, 10 hemoglobin after transfusion, 30.6 hematocrit, 196 platelets, lactate is down to 1.9. He has a 139 sodium, potassium 4.5, BUN 66, creatinine is 0.9. GFR is greater than 60, sugar is 132, calcium is 8.1, total bili is 0.4, AST is 40, ALT is 24, alk phos is 52, total protein 6.3. ASSESSMENT AND PLAN: This is one of the better days I have seen him. His belly is distended. He is on MiraLax by GI. I will add an x-ray of the abdomen, check his labs tomorrow. Continue with the current treatment. We will continue with aggressive treatment and care. He had a very high leukocytosis, septic shock type picture, and he is definitely improving. Art Espinosa DO
--- NOTE | 2019-01-28 13:32 | CP.PCM.PN ---
Subjective - Date & Time of Evaluation Date of Evaluation: 01/28/19 Time of Evaluation: 13:30 - Subjective Subjective: SURGERY PROGRESS NOTE- DR LLOYD SERVICE Pt s/e at bedside, still AMS, per nursing persistent loose BMs, Urine output 650cc overnight, received 2u PRBCs overnight, Hg uptrending appropriately Objective - Vital Signs/Intake and Output Vital Signs (last 24 hours): Temp Pulse Resp BP Pulse Ox 97 F L 68 20 112/54 L 98 01/28/19 00:30 01/28/19 04:00 01/28/19 00:30 01/28/19 00:30 01/28/19 00:30 Intake and Output: 01/28/19 01/28/19 06:59 18:59 Intake Total 900 Output Total 200 Balance 700 - Medications Medications: Current Medications Hydrocortisone Sodium Succinate (Solu-Cortef) 50 mg IVP Q12 [facility] Last Admin: 01/28/19 10:23 Dose: 50 mg Sodium Chloride (Sodium Chloride 0.45%) 1,000 mls @ 60 mls/hr IV .[id number] [facility] Last Admin: 01/28/19 05:43 Dose: 60 mls/hr Vancomycin HCl (Vancomycin 1gm) 1 gm in 250 mls @ 167 mls/hr IVPB DAILY [facility]; Protocol Last Admin: 01/28/19 10:22 Dose: 167 mls/hr Piperacillin Sod/Tazobactam Sod (Zosyn 4.5 Gm In Ns 100ml) 4.5 gm in 100 mls @ 25 mls/hr IVPB Q8 [facility]; Protocol Stop: 02/04/19 14:01 Last Admin: 01/28/19 05:43 Dose: 25 mls/hr Ipratropium [place] (Atrovent) 0.5 mg IH [id number] [facility] Last Admin: 01/28/19 07:04 Dose: 0.5 mg Levalbuterol HCl (Xopenex) 1.25 mg IH [id number] [facility] Last Admin: 01/28/19 07:05 Dose: 1.25 mg Midodrine (Proamatine) 10 mg PO TID [facility] Last Admin: 01/28/19 10:24 Dose: 10 mg Mupirocin (Bactroban Ointment) 0 gm NS BID [facility] Stop: 02/02/19 10:01 Pantoprazole Sodium (Protonix Inj) 40 mg IVP Q12 [facility] Last Admin: 01/28/19 10:23 Dose: 40 mg Polyethylene Glycol (Miralax) 17 gm PEG QID [facility] Last Admin: 01/28/19 10:19 Dose: Not Given - Labs Labs: 01/28/19 08:40 01/28/19 08:40 PT 14.8 SECONDS (9.4-12.5) H 01/25/19 20:40 INR 1.33 01/25/19 20:40 APTT 36.5 Seconds (26.9-38.3) 01/25/19 20:40 - Additional Findings Additional findings: - Constitutional Appears: Non-toxic, No Acute Distress - Head Exam Head Exam: ATRAUMATIC, NORMAL INSPECTION, NORMOCEPHALIC - Eye Exam Eye Exam: EOMI, Normal appearance - ENT Exam ENT Exam: Mucous Membranes Moist, Normal Exam - Neck Exam Additional comments: RIJ TLC in place - Respiratory Exam Respiratory Exam: NORMAL BREATHING PATTERN - Cardiovascular Exam Cardiovascular Exam: REGULAR RHYTHM, +S1, +S2 - GI/Abdominal Exam GI & Abdominal Exam: Soft. absent: Distended, Firm, Guarding, Rigid, Tenderness Additional comments: PEG tube in place; dressing -clean/dry/intact - Neurological Exam Neurological Exam: Alert, Awake. absent: Oriented x3 - Psychiatric Exam Additional comments: non sensical words - Skin Skin Exam: Normal Color, Warm Additional comments: ecchymoses over upper extremities Assessment and Plan - Assessment and Plan (Free Text) Assessment: 88M w/GI bleed, sepsis, likely due to urinary source Plan: GI Dr Selby on consult: recs appreciated Still with loose stools Dulcolax Enema Continue ABx/IVF Titrate off pressors when meets criteria Abdominal exam benign No acute surgical intervention at this time Will DW Dr. Lloyd CK PGY1
[2019-01-28 15:52] LABS: INR 1.25; PARTIAL THROMBOPLASTIN TIME 33.7 Seconds (26.9-38.3); PROTHROMBIN TIME 13.9 SECONDS (9.4-12.5)
--- NOTE | 2019-01-28 16:11 | CP.PCM.PN ---
<Devonte Richardson - Last Filed: 01/28/19 18:18> Subjective - Date & Time of Evaluation Date of Evaluation: 01/28/19 Time of Evaluation: 14:05 - Subjective Subjective: PGY4 GI fellow progress note Patient lying in bed when seen this p.m. nonverbal. No signs of overt GI bleed. Has been getting enemas but not MiraLAX as scheduled per nursing Unable to obtain review of systems due to clinical condition Objective - Vital Signs/Intake and Output Vital Signs (last 24 hours): Temp Pulse Resp BP Pulse Ox 97 F L 60 18 104/82 100 01/28/19 00:30 01/28/19 15:20 01/28/19 15:20 01/28/19 15:00 01/28/19 15:20 Intake and Output: 01/28/19 01/28/19 06:59 18:59 Intake Total 900 Output Total 200 Balance 700 - Medications Medications: Current Medications Hydrocortisone Sodium Succinate (Solu-Cortef) 50 mg IVP Q12 [facility] Last Admin: 01/28/19 10:23 Dose: 50 mg Sodium Chloride (Sodium Chloride 0.45%) 1,000 mls @ 60 mls/hr IV .[id number] [facility] Last Admin: 01/28/19 05:43 Dose: 60 mls/hr Vancomycin HCl (Vancomycin 1gm) 1 gm in 250 mls @ 167 mls/hr IVPB DAILY [facility]; Protocol Last Admin: 01/28/19 10:22 Dose: 167 mls/hr Piperacillin Sod/Tazobactam Sod (Zosyn 4.5 Gm In Ns 100ml) 4.5 gm in 100 mls @ 25 mls/hr IVPB Q8 [facility]; Protocol Stop: 02/04/19 14:01 Last Admin: 01/28/19 13:54 Dose: 25 mls/hr Ipratropium [place] (Atrovent) 0.5 mg IH [id number] [facility] Last Admin: 01/28/19 13:46 Dose: 0.5 mg Levalbuterol HCl (Xopenex) 1.25 mg IH [id number] [facility] Last Admin: 01/28/19 13:46 Dose: 1.25 mg Midodrine (Proamatine) 10 mg PO TID [facility] Last Admin: 01/28/19 10:24 Dose: 10 mg Mupirocin (Bactroban Ointment) 0 gm NS BID [facility] Stop: 02/02/19 10:01 Pantoprazole Sodium (Protonix Inj) 40 mg IVP Q12 [facility] Last Admin: 01/28/19 10:23 Dose: 40 mg Polyethylene Glycol (Miralax) 17 gm PEG QID [facility] Last Admin: 01/28/19 14:45 Dose: 17 gm - Labs Labs: 01/28/19 08:40 01/28/19 08:40 PT 13.9 SECONDS (9.4-12.5) H 01/28/19 15:00 INR 1.25 01/28/19 15:00 APTT 33.7 Seconds (26.9-38.3) 01/28/19 15:00 - Constitutional Appears: No Acute Distress, Cachectic, Chronically Ill - Head Exam Head Exam: ATRAUMATIC, NORMAL INSPECTION Additional comments: slight temporal wasting - ENT Exam ENT Exam: Mucous Membranes Dry. absent: Mucous Membranes Moist - Respiratory Exam Respiratory Exam: NORMAL BREATHING PATTERN. absent: Accessory Muscle Use - GI/Abdominal Exam GI & Abdominal Exam: Distended (moderately distended), Soft, Tenderness (tender to palpation in the right half abdomen without guarding), Hypoactive Bowel Sounds. absent: Bruit, Firm, Guarding, Rigid Assessment and Plan - Assessment and Plan (Free Text) Assessment: 88-year-old white male with a past medical history of dementia, CVA, dysphagia status post PEG, atrial fibrillation, CAD presenting from nursing facility with altered mental status and coffee-ground output from PEG tube. #Coffee-ground output from PEG tube: stable. Upon admission, all concerning for upper GI bleed given physical exam as well as elevated BUN. Hemoglobin 7.9 from unknown baseline. Hyper responded to 9 s/p 1 unit PRBC. Stool on ARDEN was not black nor red. Therefore, suspect pressor support perhaps related to sepsis component. #Fecal impaction: Large amount of stool burden seen on CT with rectum dilated up to 10 cm. Manual disimpaction done but only with soft stool within digital reach which was subsequently evacuated #septic shock: Given the dirty UA concerning for urosepsis #Dementia, CVA, dysphagia status post PEG #atrial fibrillation, CAD, AICD Plan: PPI IV q 12 hrs Monitor hemoglobin Patient is currently a DNR/DNI; would need to reverse CODE STATUS should endoscopy be warranted but any bleeding seems to have stabilized/resolved with medical therapy alone Antibiotics per primary/ICU Status post manual disimpaction MiraLAX 4 times a day Tapwater enemas every 12 hours Patient seen and examined with Dr. Selby; please see attestation for further recommendations/changes <Josiah Selby V - Last Filed: 01/28/19 23:28> Objective - Vital Signs/Intake and Output Vital Signs (last 24 hours): Temp Pulse Resp BP Pulse Ox 97 F L 58 L 16 128/68 99 01/28/19 00:30 01/28/19 20:20 01/28/19 20:20 01/28/19 20:00 01/28/19 20:20 Intake and Output: 01/28/19 01/29/19 18:59 06:59 Intake Total 1020 Output Total 300 Balance 720 - Medications Medications: Current Medications Hydrocortisone Sodium Succinate (Solu-Cortef) 50 mg IVP Q12 [facility] Last Admin: 01/28/19 22:25 Dose: 50 mg Sodium Chloride (Sodium Chloride 0.45%) 1,000 mls @ 60 mls/hr IV .[id number] [facility] Last Admin: 01/28/19 05:43 Dose: 60 mls/hr Piperacillin Sod/Tazobactam Sod (Zosyn 4.5 Gm In Ns 100ml) 4.5 gm in 100 mls @ 25 mls/hr IVPB Q8 [facility]; Protocol Stop: 02/04/19 14:01 Last Admin: 01/28/19 22:25 Dose: 25 mls/hr Ipratropium [place] (Atrovent) 0.5 mg IH [id number] [facility] Last Admin: 01/28/19 20:00 Dose: 0.5 mg Levalbuterol HCl (Xopenex) 1.25 mg IH [id number] [facility] Last Admin: 01/28/19 20:00 Dose: 1.25 mg Midodrine (Proamatine) 10 mg PO TID [facility] Last Admin: 01/28/19 17:10 Dose: 10 mg Mupirocin (Bactroban Ointment) 0 gm NS BID [facility] Stop: 02/02/19 10:01 Last Admin: 01/28/19 22:26 Dose: 1 unit Pantoprazole Sodium (Protonix Inj) 40 mg IVP Q12 [facility] Last Admin: 01/28/19 22:24 Dose: 40 mg Polyethylene Glycol (Miralax) 17 gm PEG QID [facility] Last Admin: 01/28/19 22:24 Dose: 17 gm - Labs Labs: 01/28/19 08:40 01/28/19 08:40 PT 13.9 SECONDS (9.4-12.5) H 01/28/19 15:00 INR 1.25 01/28/19 15:00 APTT 33.7 Seconds (26.9-38.3) 01/28/19 15:00 Attending/Attestation - Attestation I have personally seen and examined this patient.: Yes I have fully participated in the care of the patient.: Yes I have reviewed all pertinent clinical information, including history, physical exam and plan: Yes Notes (Text): Is an addendum to the GI progress note dictated by the fellow. Patient was seen and evaluated earlier. Patient was only MiraLAX and alternating with. Abdomen appears to be more distended. Abdominal x-ray was reviewed. We will reconnect the G-tube to the suction for a short period of time then to gravity drainage If there is more increasing distention on abdominal discomfort we will consider CT of the abdomen and pelvis Patient does have a significant large fecal impaction extending from the rectum to sigmoid colon we will continue enemas We will drip request surgical reevaluation 01/28/19 23:26
[2019-01-28] MEDS: Mupirocin 2% Ointment 15 GM TUBE NS SCH (22:26)
--- NOTE | 2019-01-29 01:07 | PN ---
DATE: 01/28/2019 SUBJECTIVE: The patient is seen in bed, seen earlier this morning in room 129, bed 6. He has had no uneventful night. No fevers. PHYSICAL EXAMINATION: VITAL SIGNS: Temperature is 97, blood pressure is 112/60, respiratory rate of 18. HEENT: Unremarkable. NECK: Supple. LUNGS: Decrease breath sounds. HEART: Normal S1, S2. ABDOMEN: Soft, nontender. LABORATORY DATA: Reveals white count of 9.9, hemoglobin of 10, platelets of 208. BUN of 61, creatinine of 1. Urinalysis as noted. Microbiology reveals his sputum has a gram-negative robby. Blood cultures are negative. Urine cultures are negative. Review of orders reveals the patient to be on Zosyn. The nasal MRSA is detected. The patient's abdominal x-ray today, distention of the colon on right side, severe fecal impaction. 's note is reviewed. Dr. Jones's note is reviewed. The patient's chest x-ray initially on 01/25/2019, vascular congestion, opacity and repeat one on 01/25/2019, diffuse reticular opacity. The CAT scan of the abdomen and pelvis, constipation with fecal impaction. Atelectasis as described on a CAT scan with bilateral pleural effusions. ASSESSMENT AND PLAN: An 88-year-old male, a jail patient with percutaneous endoscopic gastrostomy tube and history of cerebrovascular accident, hypertension, atrial fibrillation, chronic obstructive lung disease, admitted with septic shock, leucocytosis, tachycardia, dyspnea, infiltrates on the chest with septic shock but a gram-negative robby and healthcare-associated pneumonia, awaiting for identification of gram-negative robby with a procalcitonin of 0.42 with negative blood cultures. We will discontinue the vancomycin, continue the Zosyn, pending identification of gram-negative robby. Evelio Mccurdy MD
[2019-01-29] MEDS: Sodium Chloride 0.45% 1,000 ML IV SCH (02:44)
[2019-01-29] MEDS: Levalbuterol 1.25 MG/3 ML Inhal Soln UD IH SCH ×4 (02:50→21:31)
[2019-01-29] MEDS: Ipratropium 0.02% Inhal Soln (0.5 mg/2.5 ml) UD IH SCH ×4 (02:50→21:30)
[2019-01-29] MEDS: Piperacill/Tazo 4.5gm in NS 4.5 GM/100 ML BAG IVPB SCH ×2 (06:36→14:27)
[2019-01-29 06:48] LABS: HEMOGLOBIN 11.8 g/dL (14.0-18.0); MEAN CELL VOLUME 91.4 fl (80.0-105.0); MEAN CORPUSCULAR HEMOGLOBIN 29.1 pg (25.0-35.0); MEAN CORPUSCULAR HGB CONC 31.9 g/dl (31.0-37.0); MEAN PLATELET VOLUME 9.4 fl (7.0-11.0); RBC 4.05 10^6/uL (3.5-6.1); RED CELL DISTRIBUTION WIDTH 19.8 % (11.5-14.5); WHITE BLOOD COUNT 9.4 10^3/uL (4.5-11.0)
[2019-01-29 07:58] LABS: ALB/GLOB RATIO 0.8 (1.1-1.8); ALBUMIN 3.1 g/dL (3.0-4.8); ALT/SGPT 28 U/L (7-56); AST/SGOT 34 U/L (17-59); BLOOD UREA NITROGEN 59 mg/dL (7-21); CALCIUM 8.2 mg/dL (8.4-10.5); GFR NON-AFRICAN AMERICAN > 60
[2019-01-29] MEDS ORDERED: Dextrose 50% SYRINGE Inj (50 ml) IVP ONE ×2 (07:59→18:05)
--- NOTE | 2019-01-29 08:26 | CP.PCM.PN ---
Subjective - Date & Time of Evaluation Date of Evaluation: 01/29/19 Time of Evaluation: 08:23 - Subjective Subjective: SURGERY PROGRESS NOTE- DR LLOYD SERVICE Pt s/e at bedside, still w/ AMS, per nursing pt had 2 large loose green BMs, U output overnight 600cc. Objective - Vital Signs/Intake and Output Vital Signs (last 24 hours): Temp Pulse Resp BP Pulse Ox 98 F 88 20 105/63 77 L 01/29/19 00:00 01/29/19 08:00 01/29/19 08:00 01/29/19 08:00 01/29/19 08:00 Intake and Output: 01/29/19 01/29/19 06:59 18:59 Intake Total 600 Output Total 350 Balance 250 - Medications Medications: Current Medications Hydrocortisone Sodium Succinate (Solu-Cortef) 50 mg IVP Q12 [facility] Last Admin: 01/28/19 22:25 Dose: 50 mg Sodium Chloride (Sodium Chloride 0.45%) 1,000 mls @ 60 mls/hr IV .[id number] [facility] Last Admin: 01/29/19 02:44 Dose: 60 mls/hr Piperacillin Sod/Tazobactam Sod (Zosyn 4.5 Gm In Ns 100ml) 4.5 gm in 100 mls @ 25 mls/hr IVPB Q8 [facility]; Protocol Stop: 02/04/19 14:01 Last Admin: 01/29/19 06:36 Dose: 25 mls/hr Ipratropium [place] (Atrovent) 0.5 mg IH [id number] [facility] Last Admin: 01/29/19 07:30 Dose: 0.5 mg Levalbuterol HCl (Xopenex) 1.25 mg IH [id number] [facility] Last Admin: 01/29/19 07:30 Dose: 1.25 mg Midodrine (Proamatine) 10 mg PO TID [facility] Last Admin: 01/28/19 17:10 Dose: 10 mg Mupirocin (Bactroban Ointment) 0 gm NS BID [facility] Stop: 02/02/19 10:01 Last Admin: 01/28/19 22:26 Dose: 1 unit Pantoprazole Sodium (Protonix Inj) 40 mg IVP Q12 [facility] Last Admin: 01/28/19 22:24 Dose: 40 mg Polyethylene Glycol (Miralax) 17 gm PEG QID [facility] Last Admin: 01/28/19 22:24 Dose: 17 gm - Labs Labs: 01/29/19 05:40 01/29/19 05:40 PT 13.9 SECONDS (9.4-12.5) H 01/28/19 15:00 INR 1.25 01/28/19 15:00 APTT 33.7 Seconds (26.9-38.3) 01/28/19 15:00 - Additional Findings Additional findings: - Constitutional Appears: Non-toxic, No Acute Distress - Head Exam Head Exam: ATRAUMATIC, NORMAL INSPECTION, NORMOCEPHALIC - Eye Exam Eye Exam: EOMI, Normal appearance - ENT Exam ENT Exam: Mucous Membranes Moist, Normal Exam - Neck Exam Additional comments: RIJ TLC in place - Respiratory Exam Respiratory Exam: NORMAL BREATHING PATTERN - Cardiovascular Exam Cardiovascular Exam: REGULAR RHYTHM, +S1, +S2 - GI/Abdominal Exam GI & Abdominal Exam: Soft. absent: Distended, Firm, Guarding, Rigid, Tenderness Additional comments: PEG tube in place; dressing -clean/dry/intact - Neurological Exam Neurological Exam: Alert, Awake. absent: Oriented x3 - Psychiatric Exam Additional comments: non sensical words - Skin Skin Exam: Normal Color, Warm Additional comments: ecchymoses over upper extremities Assessment and Plan - Assessment and Plan (Free Text) Assessment: 88M w/GI bleed, sepsis, likely due to urinary source Plan: GI Dr Selby on consult: recs appreciated Still with loose stools continue with Dulcolax Enema Continue ABx/IVF Titrate off pressors when meets criteria Abdominal exam benign No acute surgical intervention at this time Will GAYATRI Lloyd CK PGY1
[2019-01-29] MEDS: POLYETHYLENE GLYCOL 3350 17 GM/Dose PACKET PEG SCH ×2 (10:59→14:25)
[2019-01-29] MEDS: Mupirocin 2% Ointment 15 GM TUBE NS SCH ×2 (11:03→17:59)
--- NOTE | 2019-01-29 13:52 | PN ---
DATE: 01/29/2019 SUBJECTIVE: I saw him in the intensive care unit. He is presently doing better than yesterday. His abdomen was very distended, it is not as distended today, is still there though. He is being seen by Infectious Disease, GI, Surgery, Urology, and he has a sacral ulcer that He is on IV fluids, ipratropium, Bactroban cream. He has the Dulcolax suppository, MiraLax, ProAmatine, Protonix, Solu-Cortef, Xopenex, and Zosyn. PHYSICAL EXAMINATION: GENERAL: He is alert, back to his baseline mentally, trying to talk. He has an old stroke and he talks with a slurred speech. He is more alert and talking at his baseline. 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 VITAL SIGNS: He has a 98 temperature, 65 pulse, 120/68 blood pressure, 20 respiratory rate, and 99% O2 sat on room air. HEENT: Head is atraumatic, normocephalic. HEART: Regular rate. LUNGS: Decreased breath sounds, but clear. ABDOMEN: Soft, nontender, little bit distended but better than yesterday. Positive bowel sounds. EXTREMITIES: No edema. LABORATORY DATA: He has got a bunch of issues going on. Also 9.4 white count, 11.8 hemoglobin, 37 hematocrit, with 226 platelets. He has a 140 sodium, potassium 3.7, BUN is 59, creatinine 1.1, GFR is greater than 60, sugar is 39, calcium is 8.2, total bili is 1. AST is 34, ALT is 20, alk phos 83, total protein 6.8. ASSESSMENT AND PLAN: He is being seen by Surgery, Infectious Disease, GI. When he get the okay, I will discharge him back to [facility] where he stays permanently. When Surgery, Infectious Disease, and GI says I can discharge him, I will. He might need to be on intravenous antibiotics for a few more days over there and hopefully today or tomorrow, I can discharge him back as his belly gets better. We will check his labs tomorrow. He got sepsis, gastrointestinal bleed, constipation, anemia, and abdominal distention. Art Espinosa DO [facility]
[2019-01-29] MEDS: Dextrose 5%/0.45% NS 1,000 ML IV SCH (14:49)
--- NOTE | 2019-01-29 16:57 | CP.PCM.PN ---
<India Krishnan - Last Filed: 01/29/19 16:57> Subjective - Date & Time of Evaluation Date of Evaluation: 01/29/19 Time of Evaluation: 16:54 - Subjective Subjective: Gastroenterology Fellow/PGY6 Progress Note Patient with improving abdominal distension. Nursing reports two large loose bowel movements overnight. A 12-point review of systems limited in setting of dementia. Objective - Vital Signs/Intake and Output Vital Signs (last 24 hours): Temp Pulse Resp BP Pulse Ox 98 F 88 20 105/63 77 L 01/29/19 00:00 01/29/19 08:00 01/29/19 08:00 01/29/19 08:00 01/29/19 08:00 Intake and Output: 01/29/19 01/29/19 06:59 18:59 Intake Total 600 Output Total 350 Balance 250 - Medications Medications: Current Medications Hydrocortisone Sodium Succinate (Solu-Cortef) 50 mg IVP Q12 [facility] Last Admin: 01/29/19 11:03 Dose: 50 mg Dextrose/Sodium Chloride (Dextrose 5%/0.45% Ns 1000 Ml) 1,000 mls @ 30 mls/hr IV .Q24H [facility] Last Admin: 01/29/19 14:49 Dose: 30 mls/hr Ceftriaxone Sodium (Rocephin 1 Gram Ivpb) 1 gm in 100 mls @ 100 mls/hr IVPB DAILY [facility]; Protocol Stop: 02/07/19 16:46 Ipratropium [place] (Atrovent) 0.5 mg IH [id number] [facility] Last Admin: 01/29/19 14:02 Dose: 0.5 mg Levalbuterol HCl (Xopenex) 1.25 mg IH [id number] [facility] Last Admin: 01/29/19 14:02 Dose: 1.25 mg Midodrine (Proamatine) 10 mg PO TID [facility] Last Admin: 01/29/19 14:25 Dose: Not Given Mupirocin (Bactroban Ointment) 0 gm NS BID [facility] Stop: 02/02/19 10:01 Last Admin: 01/29/19 11:03 Dose: 1 unit Pantoprazole Sodium (Protonix Inj) 40 mg IVP Q12 [facility] Last Admin: 01/29/19 11:03 Dose: 40 mg - Labs Labs: 01/29/19 05:40 01/29/19 05:40 PT 13.9 SECONDS (9.4-12.5) H 01/28/19 15:00 INR 1.25 01/28/19 15:00 APTT 33.7 Seconds (26.9-38.3) 01/28/19 15:00 - Constitutional Appears: Non-toxic, No Acute Distress - Head Exam Head Exam: ATRAUMATIC, NORMOCEPHALIC - Eye Exam Eye Exam: EOMI, PERRL. absent: Scleral icterus Pupil Exam: PERRL. absent: Miosis, Mydriatic - ENT Exam ENT Exam: Mucous Membranes Moist, Normal Oropharynx - Neck Exam Neck Exam: Full ROM, Normal Inspection - Cardiovascular Exam Cardiovascular Exam: RRR, +S1, +S2. absent: Gallop, Rubs - GI/Abdominal Exam GI & Abdominal Exam: Distended, Soft, Normal Bowel Sounds. absent: Tenderness, Organomegaly - Extremities Exam Extremities Exam: Normal Inspection - Neurological Exam Neurological Exam: Awake - Psychiatric Exam Psychiatric exam: Agitated - Skin Skin Exam: Dry, Intact, Normal Color, Warm Assessment and Plan - Assessment and Plan (Free Text) Assessment: 88 year old male with PMH of Dementia, CVA, dysphagia status post PEG, Afib, AICD, and CAD presenting for confusion and concern for coffee-ground output from PEG tube. Active treatment of suspicion for upper GI bleed s/p 3 units pRBCs and constipation with fecal impaction. Unclear prior endoscopic history. Plan: -H/H stable last 48 hours, continue to monitor -continue PPI BID -tap water enema today -monitor stool output ands titrate enema frequency with severe stool retention on imaging -G-tube to the suction output decreases in last 24 hours to 50cc -follow up surgery recommendations -no plan for endoscopic evaluation at present given stable H/H, DNR/DNI, ad multiple comorbidities -will re-evaluate abdominal distension, constipation, and hematocrit for decision on G tube feeds over next 24 hours -will follow clinical course <Josiah Selby V - Last Filed: 02/02/19 19:40> Objective - Vital Signs/Intake and Output Vital Signs (last 24 hours): Temp Pulse Resp BP Pulse Ox 98 F 66 20 105/63 77 L 01/29/19 00:00 01/29/19 20:00 01/29/19 08:00 01/29/19 08:00 01/29/19 08:00 Intake and Output: 01/29/19 01/30/19 18:59 06:59 Intake Total 740 Output Total 350 Balance 390 - Medications Medications: Current Medications Hydrocortisone Sodium Succinate (Solu-Cortef) 50 mg IVP Q12 [facility] Last Admin: 01/29/19 11:03 Dose: 50 mg Dextrose/Sodium Chloride (Dextrose 5%/0.45% Ns 1000 Ml) 1,000 mls @ 30 mls/hr IV .Q24H [facility] Last Admin: 01/29/19 14:49 Dose: 30 mls/hr Ceftriaxone Sodium (Rocephin 1 Gram Ivpb) 1 gm in 100 mls @ 100 mls/hr IVPB DAILY [facility]; Protocol Stop: 02/07/19 16:46 Last Admin: 01/29/19 17:59 Dose: 100 mls/hr Ipratropium [place] (Atrovent) 0.5 mg IH [id number] [facility] Last Admin: 01/29/19 21:30 Dose: 0.5 mg Levalbuterol HCl (Xopenex) 1.25 mg IH [id number] [facility] Last Admin: 01/29/19 21:31 Dose: 1.25 mg Midodrine (Proamatine) 10 mg PO TID [facility] Last Admin: 01/29/19 17:58 Dose: Not Given Mupirocin (Bactroban Ointment) 0 gm NS BID [facility] Stop: 02/02/19 10:01 Last Admin: 01/29/19 17:59 Dose: 1 unit Pantoprazole Sodium (Protonix Inj) 40 mg IVP Q12 [facility] Last Admin: 01/29/19 11:03 Dose: 40 mg - Labs Labs: 01/29/19 05:40 01/29/19 05:40 PT 13.9 SECONDS (9.4-12.5) H 01/28/19 15:00 INR 1.25 01/28/19 15:00 APTT 33.7 Seconds (26.9-38.3) 01/28/19 15:00 Attending/Attestation - Attestation I have personally seen and examined this patient.: Yes I have fully participated in the care of the patient.: Yes I have reviewed all pertinent clinical information, including history, physical exam and plan: Yes Notes (Text): Is a delayed addendum to the progress note dictated by the GI fellow. The patient was seen and evaluated along with the GI fellow. Patient's abdomen still remains distended. Patient did have good improvement with any meds we will continue that. Will consider starting the G-tube feeding once the bowel clearance is achieved 01/29/19 23:11 02/02/19 19:39
[2019-01-29] MEDS: cefTRIAXone 1 gm 1 GM/100 ML BAG IVPB SCH (17:59)
--- NOTE | 2019-01-29 20:55 | PN ---
DATE: 01/29/2019 The patient was seen in room 129, bed 6. PHYSICAL EXAMINATION VITAL SIGNS: Temperature is 98, blood pressure is 105/60, respiratory rate of 24, heart rate of 88. HEENT: Unremarkable. NECK: Supple. LUNGS: Decreased breath sounds. HEART: Normal S1, S2. ABDOMEN: Soft. LABORATORY DATA: Reveals white count of 9.4, hemoglobin of 11, platelets of 226. BUN of 59, creatinine of 1.5. Urinalysis is noted. Microbiology reveals Klebsiella pneumonia in the sputum. MEDICATIONS: Review of orders reveals the patient to be on Zosyn. ASSESSMENT AND PLAN: This is an 88-year-old male, long-term patient with a percutaneous endoscopic gastrostomy tube, history of cerebrovascular accident, hypertension, atrial fibrillation, chronic obstructive lung disease, admitted with septic shock, leukocytosis, tachycardia, dyspnea, infiltrates on the chest with Klebsiella healthcare associated pneumonia, on Zosyn. The Klebsiella pneumonia in the sputum culture is pansensitive including ceftriaxone. We will discontinue the Zosyn and start the patient on ceftriaxone. We will follow closely with you. Evelio Mccurdy MD
[2019-01-30] MEDS: Ipratropium 0.02% Inhal Soln (0.5 mg/2.5 ml) UD IH SCH ×4 (02:58→20:34)
[2019-01-30] MEDS: Levalbuterol 1.25 MG/3 ML Inhal Soln UD IH SCH ×4 (02:58→20:34)
[2019-01-30 05:59] LABS: HEMOGLOBIN 11.9 g/dL (14.0-18.0); MEAN CELL VOLUME 90.5 fl (80.0-105.0); MEAN CORPUSCULAR HEMOGLOBIN 29.1 pg (25.0-35.0); MEAN CORPUSCULAR HGB CONC 32.2 g/dl (31.0-37.0); MEAN PLATELET VOLUME 8.9 fl (7.0-11.0); RBC 4.09 10^6/uL (3.5-6.1); RED CELL DISTRIBUTION WIDTH 19.1 % (11.5-14.5)
[2019-01-30 06:09] LABS: ALB/GLOB RATIO 0.8 (1.1-1.8); ALBUMIN 2.8 g/dL (3.0-4.8); ALT/SGPT 24 U/L (7-56); AST/SGOT 38 U/L (17-59); BLOOD UREA NITROGEN 48 mg/dL (7-21); CALCIUM 8.1 mg/dL (8.4-10.5); GFR NON-AFRICAN AMERICAN > 60
--- NOTE | 2019-01-30 09:07 | CP.PCM.PN ---
Subjective - Date & Time of Evaluation Date of Evaluation: 01/30/19 Time of Evaluation: 09:04 - Subjective Subjective: SURGICAL PROGRESS NOTE- DR LLOYD SERVICE Pt seen and examined at bedside, still with AMS, as per nursing x2 BMs since yesterday - merino paste, moderate volume. Urine output: 350cc overnight, R arm elbow superficial wound no acute bleeding noted. Objective - Vital Signs/Intake and Output Vital Signs (last 24 hours): Temp Pulse Resp BP Pulse Ox 97.3 F L 77 20 105/63 77 L 01/30/19 00:00 01/30/19 03:53 01/29/19 08:00 01/29/19 08:00 01/29/19 08:00 - Medications Medications: Current Medications Hydrocortisone Sodium Succinate (Solu-Cortef) 50 mg IVP Q12 [facility] Last Admin: 01/29/19 22:55 Dose: 50 mg Dextrose/Sodium Chloride (Dextrose 5%/0.45% Ns 1000 Ml) 1,000 mls @ 30 mls/hr IV .Q24H [facility] Last Admin: 01/29/19 14:49 Dose: 30 mls/hr Ceftriaxone Sodium (Rocephin 1 Gram Ivpb) 1 gm in 100 mls @ 100 mls/hr IVPB DAILY [facility]; Protocol Stop: 02/07/19 16:46 Last Admin: 01/29/19 17:59 Dose: 100 mls/hr Potassium Chloride (Potassium Chloride 20 Meq/100 Ml) 20 meq in 100 mls @ 50 mls/hr IVPB ONCE ONE Stop: 01/30/19 10:14 Ipratropium [place] (Atrovent) 0.5 mg IH [id number] [facility] Last Admin: 01/30/19 07:48 Dose: 0.5 mg Levalbuterol HCl (Xopenex) 1.25 mg IH [id number] [facility] Last Admin: 01/30/19 07:50 Dose: 1.25 mg Midodrine (Proamatine) 10 mg PO TID [facility] Last Admin: 01/29/19 17:58 Dose: Not Given Mupirocin (Bactroban Ointment) 0 gm NS BID [facility] Stop: 02/02/19 10:01 Last Admin: 01/29/19 17:59 Dose: 1 unit Pantoprazole Sodium (Protonix Inj) 40 mg IVP Q12 [facility] Last Admin: 01/29/19 22:00 Dose: 40 mg - Labs Labs: 01/30/19 05:20 01/30/19 05:20 PT 13.9 SECONDS (9.4-12.5) H 01/28/19 15:00 INR 1.25 01/28/19 15:00 APTT 33.7 Seconds (26.9-38.3) 01/28/19 15:00 - Additional Findings Additional findings: - Constitutional Appears: Non-toxic, No Acute Distress - Head Exam Head Exam: ATRAUMATIC, NORMAL INSPECTION, NORMOCEPHALIC - Eye Exam Eye Exam: EOMI, Normal appearance - ENT Exam ENT Exam: Mucous Membranes Moist, Normal Exam - Neck Exam Additional comments: RIJ TLC in place - Respiratory Exam Respiratory Exam: NORMAL BREATHING PATTERN - Cardiovascular Exam Cardiovascular Exam: REGULAR RHYTHM, +S1, +S2 - GI/Abdominal Exam GI & Abdominal Exam: Soft. absent: Distended, Firm, Guarding, Rigid, Tenderness Additional comments: PEG tube in place; dressing -clean/dry/intact - Neurological Exam Neurological Exam: Alert, Awake. absent: Oriented x3 - Psychiatric Exam Additional comments: non sensical words - Skin Skin Exam: Normal Color, Warm Additional comments: ecchymoses over upper extremities Assessment and Plan - Assessment and Plan (Free Text) Assessment: 88M w/GI bleed, sepsis, likely due to urinary source Plan: GI Dr Selby on consult: recs appreciated Still with loose stools continue with Dulcolax Enema today Continue ABx/IVF Repleating K as needed Abdominal exam benign R Elbow dressed with surgicell and kerlix, Coags appreciated No acute surgical intervention at this time Will GAYATRI Lloyd CK PGY1
--- NOTE | 2019-01-30 10:27 | CP.PCM.PN ---
Subjective - Date & Time of Evaluation Date of Evaluation: 01/30/19 Time of Evaluation: 10:25 - Subjective Subjective: I am not on staff of [facility]. Suggest calling urology consult [facility] Urologist. Hubert Objective - Vital Signs/Intake and Output Vital Signs (last 24 hours): Temp Pulse Resp BP Pulse Ox 97.3 F L 77 20 105/63 77 L 01/30/19 00:00 01/30/19 03:53 01/29/19 08:00 01/29/19 08:00 01/29/19 08:00 - Medications Medications: Current Medications Hydrocortisone Sodium Succinate (Solu-Cortef) 50 mg IVP Q12 [facility] Last Admin: 01/29/19 22:55 Dose: 50 mg Dextrose/Sodium Chloride (Dextrose 5%/0.45% Ns 1000 Ml) 1,000 mls @ 30 mls/hr IV .Q24H [facility] Last Admin: 01/29/19 14:49 Dose: 30 mls/hr Ceftriaxone Sodium (Rocephin 1 Gram Ivpb) 1 gm in 100 mls @ 100 mls/hr IVPB DAILY [facility]; Protocol Stop: 02/07/19 16:46 Last Admin: 01/29/19 17:59 Dose: 100 mls/hr Potassium Chloride (Potassium Chloride 20 Meq/100 Ml) 20 meq in 100 mls @ 50 mls/hr IVPB ONCE ONE Stop: 01/30/19 10:14 Potassium Chloride (Potassium Chloride 20 Meq/100 Ml) 20 meq in 100 mls @ 50 mls/hr IVPB Q2H [facility] Stop: 01/30/19 15:59 Ipratropium [place] (Atrovent) 0.5 mg IH [id number] [facility] Last Admin: 01/30/19 07:48 Dose: 0.5 mg Levalbuterol HCl (Xopenex) 1.25 mg IH [id number] [facility] Last Admin: 01/30/19 07:50 Dose: 1.25 mg Midodrine (Proamatine) 10 mg PO TID [facility] Last Admin: 01/29/19 17:58 Dose: Not Given Mupirocin (Bactroban Ointment) 0 gm NS BID [facility] Stop: 02/02/19 10:01 Last Admin: 01/29/19 17:59 Dose: 1 unit Pantoprazole Sodium (Protonix Inj) 40 mg IVP Q12 [facility] Last Admin: 01/29/19 22:00 Dose: 40 mg - Labs Labs: 01/30/19 05:20 01/30/19 05:20 PT 13.9 SECONDS (9.4-12.5) H 01/28/19 15:00 INR 1.25 01/28/19 15:00 APTT 33.7 Seconds (26.9-38.3) 01/28/19 15:00
--- NOTE | 2019-01-30 10:37 | CP.PCM.PN ---
<EulogioIndia - Last Filed: 01/30/19 10:33> Subjective - Date & Time of Evaluation Date of Evaluation: 01/30/19 Time of Evaluation: 10:33 - Subjective Subjective: Gastroenterology Fellow/PGY6 Progress Note Patient with improving abdominal distension. Nursing reports one bowel movement yesterday. A 12-point review of systems limited in setting of dementia. Objective - Vital Signs/Intake and Output Vital Signs (last 24 hours): Temp Pulse Resp BP Pulse Ox 97.3 F L 77 20 105/63 77 L 01/30/19 00:00 01/30/19 03:53 01/29/19 08:00 01/29/19 08:00 01/29/19 08:00 - Medications Medications: Current Medications Hydrocortisone Sodium Succinate (Solu-Cortef) 50 mg IVP Q12 [facility] Last Admin: 01/29/19 22:55 Dose: 50 mg Dextrose/Sodium Chloride (Dextrose 5%/0.45% Ns 1000 Ml) 1,000 mls @ 30 mls/hr IV .Q24H [facility] Last Admin: 01/29/19 14:49 Dose: 30 mls/hr Ceftriaxone Sodium (Rocephin 1 Gram Ivpb) 1 gm in 100 mls @ 100 mls/hr IVPB DAILY [facility]; Protocol Stop: 02/07/19 16:46 Last Admin: 01/29/19 17:59 Dose: 100 mls/hr Potassium Chloride (Potassium Chloride 20 Meq/100 Ml) 20 meq in 100 mls @ 50 m ls/hr IVPB Q2H [facility] Stop: 01/30/19 15:59 Ipratropium [place] (Atrovent) 0.5 mg IH [id number] [facility] Last Admin: 01/30/19 07:48 Dose: 0.5 mg Levalbuterol HCl (Xopenex) 1.25 mg IH [id number] [facility] Last Admin: 01/30/19 07:50 Dose: 1.25 mg Midodrine (Proamatine) 10 mg PO TID [facility] Last Admin: 01/29/19 17:58 Dose: Not Given Mupirocin (Bactroban Ointment) 0 gm NS BID [facility] Stop: 02/02/19 10:01 Last Admin: 01/29/19 17:59 Dose: 1 unit Pantoprazole Sodium (Protonix Inj) 40 mg IVP Q12 [facility] Last Admin: 01/29/19 22:00 Dose: 40 mg - Labs Labs: 01/30/19 05:20 01/30/19 05:20 PT 13.9 SECONDS (9.4-12.5) H 01/28/19 15:00 INR 1.25 01/28/19 15:00 APTT 33.7 Seconds (26.9-38.3) 01/28/19 15:00 - Constitutional Appears: Non-toxic, No Acute Distress - Head Exam Head Exam: ATRAUMATIC, NORMOCEPHALIC - Eye Exam Eye Exam: EOMI, PERRL. absent: Scleral icterus Pupil Exam: PERRL. absent: Miosis, Mydriatic - ENT Exam ENT Exam: Mucous Membranes Moist, Normal Oropharynx - Neck Exam Neck Exam: Full ROM, Normal Inspection - Respiratory Exam Respiratory Exam: Clear to Ausculation Bilateral. absent: Rales, Rhonchi, W heezes - Cardiovascular Exam Cardiovascular Exam: RRR, +S1, +S2. absent: Gallop, Rubs - GI/Abdominal Exam GI & Abdominal Exam: Soft, Normal Bowel Sounds. absent: Distended, Firm, Guarding, Rigid, Tenderness, Organomegaly, Rebound Additional comments: PEG LUQ- C/D/I- connect to low intermittent suction- 50cc of green bilious drainage - Extremities Exam Extremities Exam: Normal Inspection. absent: Pedal Edema - Neurological Exam Neurological Exam: Awake - Psychiatric Exam Additional comments: not answering questions in setting of dementia - Skin Skin Exam: Dry, Intact, Normal Color, Warm Assessment and Plan - Assessment and Plan (Free Text) Assessment: 88 year old male with PMH of Dementia, CVA, dysphagia status post PEG, Afib, AICD, and CAD presenting for confusion and concern for coffee-ground output from PEG tube. Active treatment of anemia s/p 3 units pRBCs and constipation with fecal impaction. Unclear prior endoscopic history. Plan: -H/H stable, continue to monitor -continue PPI BID -tap water enema q8Hx3 today -monitor stool output and G-tube to the suction for decompression -will discuss timing of restarting tube feeds based on stool output today -follow up surgery recommendations -no plan for endoscopic evaluation at present given stable H/H, DNR/DNI, and multiple comorbidities -will follow clinical course <Josiah Selby V - Last Filed: 01/30/19 22:25> Objective - Vital Signs/Intake and Output Vital Signs (last 24 hours): Temp Pulse Resp BP Pulse Ox 97.3 F L 65 15 117/95 H 99 01/30/19 00:00 01/30/19 16:50 01/30/19 16:50 01/30/19 12:00 01/30/19 16:50 Intake and Output: 01/30/19 01/31/19 18:59 06:59 Intake Total 0 Output Total 300 Balance -300 - Medications Medications: Current Medications Hydrocortisone Sodium Succinate (Solu-Cortef) 50 mg IVP Q12 [facility] Stop: 01/30/19 23:59 Last Admin: 01/30/19 10:58 Dose: 50 mg Hydrocortisone Sodium Succinate (Solu-Cortef) 50 mg IVP DAILY [facility] Stop: 01/31/19 23:59 Hydrocortisone Sodium Succinate (Solu-Cortef) 25 mg IVP DAILY [facility] Dextrose/Sodium Chloride (Dextrose 5%/0.45% Ns 1000 Ml) 1,000 mls @ 30 mls/hr IV .Q24H [facility] Last Admin: 01/30/19 17:24 Dose: 30 mls/hr Ceftriaxone Sodium (Rocephin 1 Gram Ivpb) 1 gm in 100 mls @ 100 mls/hr IVPB DAILY [facility]; Protocol Stop: 02/07/19 16:46 Last Admin: 01/30/19 10:46 Dose: 100 mls/hr Ipratropium [place] (Atrovent) 0.5 mg IH [id number] [facility] Last Admin: 01/30/19 20:34 Dose: 0.5 mg Levalbuterol HCl (Xopenex) 1.25 mg IH [id number] [facility] Last Admin: 01/30/19 20:34 Dose: 1.25 mg Midodrine (Proamatine) 10 mg PO TID [facility] Last Admin: 01/30/19 17:29 Dose: 10 mg Mupirocin (Bactroban Ointment) 0 gm NS BID [facility] Stop: 02/02/19 10:01 Last Admin: 01/30/19 10:42 Dose: 1 unit Pantoprazole Sodium (Protonix Inj) 40 mg IVP Q12 [facility] Last Admin: 01/30/19 11:07 Dose: 40 mg - Labs Labs: 04/26/19 05:20 01/30/19 05:20 PT 13.9 SECONDS (9.4-12.5) H 01/28/19 15:00 INR 1.25 01/28/19 15:00 APTT 33.7 Seconds (26.9-38.3) 01/28/19 15:00 Attending/Attestation - Attestation I have personally seen and examined this patient.: Yes I have fully participated in the care of the patient.: Yes I have reviewed all pertinent clinical information, including history, physical exam and plan: Yes Notes (Text): The patient was seen and evaluated along with the GI fellow regarding it This is an addendum to the GI progress note dictated by the fellow. Abdomen appears less distended. Patient did have some good results with any medicine before. Patient has significant fecal impaction extending up to the mid sigmoid colon. Would continue any meds.. We will start the patient a liquid diet and MiraLAX after more bowel clearance.. No further GI bleeding. PEG tube in place. 01/30/19 22:24
[2019-01-30] MEDS: Mupirocin 2% Ointment 15 GM TUBE NS SCH (10:42)
[2019-01-30] MEDS: cefTRIAXone 1 gm 1 GM/100 ML BAG IVPB SCH (10:46)
--- NOTE | 2019-01-30 11:24 | PN ---
DATE: 01/30/2019 SUBJECTIVE: I saw him in the intensive care unit. He is alert, a little tired this morning. MEDICATIONS: He is on Atrovent, Bactroban cream, dextrose, potassium replacement, midodrine, Protonix, Rocephin IV, Solu-Cortef IV and Xopenex. PHYSICAL EXAMINATION: VITAL SIGNS: He has a 97.3 temp, 85 pulse, 20 respiratory rate, 105/63 blood pressure and 97% O2 sat. LABORATORY DATA: He has an 8 white count, 11.9 hemoglobin, 37 hematocrit with 298 platelets. He has a sodium 140; potassium 3.1, gave him potassium replacement; BUN 48; creatinine 1.1 which is better. GFR is greater than 60, sugar is 84, calcium is 8.1, magnesium 2.5, total bili is 0.6, AST is 38, ALT is 24, alk phos 63, total protein 6.2. Micro has Klebsiella pneumonia and Gram stain. He has a multiple consults. Multiple problems. [facility] is [facility], he lives permanently. He has a gastrostomy tube. He had old cerebrovascular accident, atrial fibrillation, chronic obstructive pulmonary disease. He is admitted with septic shock, leukocytosis. He is improving. He has infiltrates, Klebsiella associated pneumonia on Zosyn, ceftriaxone, when I get the okay from Infectious Disease, I will [facility]. We will continue aggressive treatment and care. I will get him out of the Intensive Care Unit today. Art Espinosa DO MTDD
[2019-01-30] MEDS: Dextrose 5%/0.45% NS 1,000 ML IV SCH (17:24)
--- NOTE | 2019-01-31 00:21 | PN ---
DATE: 01/30/2019 SUBJECTIVE: The patient is in bed, in no acute distress, nontoxic. PHYSICAL EXAMINATION VITAL SIGNS: The patient was seen early this morning in the ICU 129, bed 6, with a temperature is 98, blood pressure is 117/95, respiratory rate of 18, and a heart rate of 68. HEENT: Unremarkable. NECK: Supple. LUNGS: Decreased breath sounds. HEART: Normal S1 and S2. ABDOMEN: Soft, nontender. LABORATORY DATA: Reveals Klebsiella pneumonia, relatively sensitive. The sputum culture and blood cultures are negative. The nasal MRSA is negative. REVIEW OF ORDERS: Reveals the patient to be on ceftriaxone. ASSESSMENT AND PLAN: An 88-year-old male with a percutaneous endoscopic gastrostomy tube, history of cerebrovascular accident, hypertension, atrial fibrillation, chronic obstructive lung disease, admitted with septic shock with Klebsiella healthcare-associated pneumonia. Currently on ceftriaxone, the patient was day #6. May be able to switch to p.o. antibiotics upon discharge. Evelio Mccurdy MD
[2019-01-31] MEDS: Ipratropium 0.02% Inhal Soln (0.5 mg/2.5 ml) UD IH SCH ×4 (01:23→19:45)
[2019-01-31] MEDS: Levalbuterol 1.25 MG/3 ML Inhal Soln UD IH SCH ×4 (01:24→19:45)
[2019-01-31] MEDS: Mupirocin 2% Ointment 15 GM TUBE NS SCH ×2 (09:56→17:32)
[2019-01-31] MEDS: cefTRIAXone 1 gm 1 GM/100 ML BAG IVPB SCH (09:57)
--- NOTE | 2019-01-31 11:28 | CP.PCM.PN ---
<Devonte Richardson - Last Filed: 01/31/19 20:15> Subjective - Date & Time of Evaluation Date of Evaluation: 01/31/19 Time of Evaluation: 09:35 - Subjective Subjective: PGY4 GI fellow progress Patient lying in bed when seen this morning. Patient is nonverbal and unable to provide history but in no acute distress. Unable to provide review of systems due to clinical condition Objective - Vital Signs/Intake and Output Vital Signs (last 24 hours): Temp Pulse Resp BP Pulse Ox 97 F L 98 H 18 140/69 97 01/31/19 08:02 01/31/19 08:02 01/31/19 08:02 01/31/19 08:02 01/31/19 08:02 Intake and Output: 01/31/19 01/31/19 06:59 18:59 Intake Total 740 Output Total 800 Balance -60 - Medications Medications: Current Medications Hydrocortisone Sodium Succinate (Solu-Cortef) 50 mg IVP DAILY [facility] Stop: 01/31/19 23:59 Last Admin: 01/31/19 09:57 Dose: 50 mg Hydrocortisone Sodium Succinate (Solu-Cortef) 25 mg IVP DAILY [facility] Dextrose/Sodium Chloride (Dextrose 5%/0.45% Ns 1000 Ml) 1,000 mls @ 30 mls/hr IV .Q24H [facility] Last Admin: 01/30/19 17:24 Dose: 30 mls/hr Ceftriaxone Sodium (Rocephin 1 Gram Ivpb) 1 gm in 100 mls @ 100 mls/hr IVPB DAILY [facility]; Protocol Stop: 02/07/19 16:46 Last Admin: 01/31/19 09:57 Dose: 100 mls/hr Ipratropium [place] (Atrovent) 0.5 mg IH [id number] [facility] Last Admin: 01/31/19 09:04 Dose: 0.5 mg Levalbuterol HCl (Xopenex) 1.25 mg IH [id number] [facility] Last Admin: 01/31/19 09:04 Dose: 1.25 mg Midodrine (Proamatine) 10 mg PO TID [facility] Last Admin: 01/30/19 17:29 Dose: 10 mg Mupirocin (Bactroban Ointment) 0 gm NS BID [facility] Stop: 02/02/19 10:01 Last Admin: 01/31/19 09:56 Dose: 1 applic Pantoprazole Sodium (Protonix Inj) 40 mg IVP Q12 [facility] Last Admin: 01/31/19 09:56 Dose: 40 mg - Labs Labs: 01/30/19 05:20 01/30/19 05:20 PT 13.9 SECONDS (9.4-12.5) H 01/28/19 15:00 INR 1.25 01/28/19 15:00 APTT 33.7 Seconds (26.9-38.3) 01/28/19 15:00 - Constitutional Appears: No Acute Distress, Chronically Ill - Head Exam Head Exam: ATRAUMATIC, NORMAL INSPECTION - Eye Exam Eye Exam: EOMI. absent: Scleral icterus - ENT Exam ENT Exam: Mucous Membranes Dry. absent: Mucous Membranes Moist - Respiratory Exam Respiratory Exam: NORMAL BREATHING PATTERN. absent: Accessory Muscle Use - GI/Abdominal Exam GI & Abdominal Exam: Distended, Soft, Hypoactive Bowel Sounds. absent: Bruit, Firm, Guarding, Rigid, Tenderness, Organomegaly, Pulsatile Mass Assessment and Plan - Assessment and Plan (Free Text) Assessment: 88 year old male with PMH of Dementia, CVA, dysphagia status post PEG, Afib, AICD, and CAD presenting for confusion and concern for coffee-ground output from PEG tube. Active treatment of anemia s/p 3 units pRBCs and constipation with fecal impaction. Unclear prior endoscopic history. Plan: -H/H stable, continue to monitor -continue PPI BID -monitor stool/PEG output -Cont tap water enemas -May consider tube feed and miralax tomorrow -follow up surgery recommendations -no plan for endoscopic evaluation at present given stable H/H, DNR/DNI, and multiple comorbidities -will follow clinical course Patient discussed with Dr. Selby. Please see attestation for further recommendations/changes <Josiah Selby V - Last Filed: 01/31/19 23:03> Objective - Vital Signs/Intake and Output Vital Signs (last 24 hours): Temp Pulse Resp BP Pulse Ox 97.5 F L 73 18 104/69 96 01/31/19 22:52 01/31/19 22:52 01/31/19 22:52 01/31/19 22:52 01/31/19 22:52 Intake and Output: 01/31/19 02/01/19 18:59 06:59 Output Total 300 Balance -300 - Medications Medications: Current Medications Hydrocortisone Sodium Succinate (Solu-Cortef) 50 mg IVP DAILY [facility] Stop: 01/31/19 23:59 Last Admin: 01/31/19 09:57 Dose: 50 mg Hydrocortisone Sodium Succinate (Solu-Cortef) 25 mg IVP DAILY [facility] Dextrose/Sodium Chloride (Dextrose 5%/0.45% Ns 1000 Ml) 1,000 mls @ 30 mls/hr IV .Q24H [facility] Last Admin: 01/31/19 15:30 Dose: 30 mls/hr Ceftriaxone Sodium (Rocephin 1 Gram Ivpb) 1 gm in 100 mls @ 100 mls/hr IVPB DAILY [facility]; Protocol Stop: 02/07/19 16:46 Last Admin: 01/31/19 09:57 Dose: 100 mls/hr Ipratropium [place] (Atrovent) 0.5 mg IH [id number] [facility] Last Admin: 01/31/19 19:45 Dose: 0.5 mg Levalbuterol HCl (Xopenex) 1.25 mg IH [id number] [facility] Last Admin: 01/31/19 19:45 Dose: 1.25 mg Midodrine (Proamatine) 10 mg PO TID [facility] Last Admin: 01/31/19 13:13 Dose: Not Given Mupirocin (Bactroban Ointment) 0 gm NS BID [facility] Stop: 02/02/19 10:01 Last Admin: 01/31/19 17:32 Dose: 1 applic Pantoprazole Sodium (Protonix Inj) 40 mg IVP Q12 [facility] Last Admin: 01/31/19 22:32 Dose: 40 mg - Labs Labs: 01/30/19 05:20 01/30/19 05:20 PT 13.9 SECONDS (9.4-12.5) H 01/28/19 15:00 INR 1.25 01/28/19 15:00 APTT 33.7 Seconds (26.9-38.3) 01/28/19 15:00 Attending/Attestation - Attestation I have personally seen and examined this patient.: Yes I have fully participated in the care of the patient.: Yes I have reviewed all pertinent clinical information, including history, physical exam and plan: Yes Notes (Text): This patient was seen and evaluated here earlier today. This is an addendum to the GI progress report dictated by the GI fellow. Patient did have some good results after the enemas but that the abdomen still appears to be distended. The CT scan done earlier which reviewed showed a significant amount of stool site extending up to the mid sigmoid colon area. Would continue the enemas. After the first of the bowel clearance we will start the patient clear liquid diet by the PEG tube. Continue PPI 01/31/19 23:02
--- NOTE | 2019-01-31 12:24 | PN ---
DATE: 01/31/2019 SUBJECTIVE: He is doing better. He is alert, little bit confused at his baseline. He is being seen by Infectious Disease and GI and Surgery. The asked me to call in Dr. Pete, call in Dr. Yarbrough, urologist. He is comfortable in bed, we are waiting for 10 more bowel movements to clean then out, then we could restart the feedings. When I get the okay from GI, I will change that over. I will restart and switching him to p.o. antibiotics. Otherwise, we will continue treatment and care at this time. He is improving, but slowly. He is comfortable. No acute distress. Abdomen is also less distended, which is good. Waiting to be get cleared from GI. PHYSICAL EXAMINATION: GENERAL: He is looking at me, presently confused. Right-sided weakness from an old stroke. Left hand is kind of swollen from drawing blood and IVs. VITAL SIGNS: He has a 97 temperature, 98 pulse, 140/69 blood pressure, 18 respiratory rate, and 97% O2 saturation on room air. HEENT: His head is atraumatic and normocephalic. HEART: Regular rate. LUNGS: Decreased breath sounds. ABDOMEN: Softer, less distended. EXTREMITIES: No edema, but some swelling in the hands from IVs and acupuncture. Right side is flaccid from the stroke. MEDICATIONS: He is on Atrovent, Bactroban cream, dextrose, ProAmatine, Protonix, Rocephin IV, Solu-Cortef, and Xopenex. LABORATORY DATA: He has a urine which is moderate bacteria. A 140 sodium; potassium 3.1, potassium to be replaced; BUN 48; creatinine 1.1; GFR is greater than 60; and sugar is 65. Calcium is 8.1, total bili is 0.6, AST is 38, ALT is 24, alk phos 53, and total protein 6.2. Lactate is finally down to 1.9, it was as high as 3.9. He has 8 white count, 11.9 hemoglobin, 37 hematocrit with a 198 platelets. Klebsiella pneumonia in sputum. ASSESSMENT AND PLAN: As per Infectious Disease and Gastroenterology, IV antibiotics. Await for intestinal improvement, then we can put him on the feedings and then work on discharging back on oral antibiotics. Await Gastroenterology evaluation. Art Espinosa DO [facility] # [id number] [place]
[2019-01-31] MEDS: Dextrose 5%/0.45% NS 1,000 ML IV SCH (15:30)
--- NOTE | 2019-01-31 23:18 | PN ---
DATE: 01/31/2019 SUBJECTIVE: The patient is in bed, in no acute distress, nontoxic. PHYSICAL EXAMINATION: VITAL SIGNS: Temperature is 97, blood pressure is 150/70, respiratory rate of 18. HEENT: Unremarkable. NECK: Supple. LUNGS: Decreased breath sounds. HEART: Normal S1 and S2. ABDOMEN: Soft. LABORATORY EXAMINATION: Reveals a white count of 8000, hemoglobin of 11. Urinalysis is noted. Review of orders reveals the patient to be on ceftriaxone. ASSESSMENT AND PLAN: This is an 88-year-old male with PEG tube and history of cerebrovascular accident, hypertension, atrial fibrillation, chronic obstructive lung disease, admitted with septic shock, Klebsiella healthcare associated pneumonia, on ceftriaxone. Today is day #7. The patient is doing well. Back to baseline. We will discontinue the antibiotics after today's last dose. No further antibiotics needed. Evelio Mccurdy MD
[2019-02-01] MEDS: Ipratropium 0.02% Inhal Soln (0.5 mg/2.5 ml) UD IH SCH ×4 (02:47→20:26)
[2019-02-01] MEDS: Levalbuterol 1.25 MG/3 ML Inhal Soln UD IH SCH ×4 (02:47→20:26)
--- NOTE | 2019-02-01 11:03 | CP.PCM.PN ---
<Devonte Richardson - Last Filed: 02/01/19 11:00> Subjective - Date & Time of Evaluation Date of Evaluation: 02/01/19 Time of Evaluation: 10:30 - Subjective Subjective: PGY4 GI fellow progress note Patient lying in bed when seen this morning. Patient only able to mumble due to dementia. Still with ongoing small amounts of bowel movements after enema administration. unable to obtain review of systems due to clinical condition/advanced dementia Objective - Vital Signs/Intake and Output Vital Signs (last 24 hours): Temp Pulse Resp BP Pulse Ox 97.5 F L 81 17 150/75 97 02/01/19 06:00 02/01/19 06:00 02/01/19 06:00 02/01/19 06:00 02/01/19 06:00 Intake and Output: 02/01/19 02/01/19 06:59 18:59 Output Total 400 Balance -400 - Medications Medications: Current Medications Hydrocortisone Sodium Succinate (Solu-Cortef) 25 mg IVP DAILY [facility] Dextrose/Sodium Chloride (Dextrose 5%/0.45% Ns 1000 Ml) 1,000 mls @ 30 mls/hr IV .Q24H [facility] Last Admin: 01/31/19 15:30 Dose: 30 mls/hr Ceftriaxone Sodium (Rocephin 1 Gram Ivpb) 1 gm in 100 mls @ 100 mls/hr IVPB DAILY [facility]; Protocol Stop: 02/07/19 16:46 Last Admin: 01/31/19 09:57 Dose: 100 mls/hr Ipratropium [place] (Atrovent) 0.5 mg IH [id number] [facility] Last Admin: 02/01/19 07:38 Dose: 0.5 mg Levalbuterol HCl (Xopenex) 1.25 mg IH [id number] [facility] Last Admin: 02/01/19 07:38 Dose: 1.25 mg Midodrine (Proamatine) 10 mg PO TID [facility] Last Admin: 01/31/19 13:13 Dose: Not Given Mupirocin (Bactroban Ointment) 0 gm NS BID [facility] Stop: 02/02/19 10:01 Last Admin: 01/31/19 17:32 Dose: 1 applic Pantoprazole Sodium (Protonix Inj) 40 mg IVP Q12 [facility] Last Admin: 01/31/19 22:32 Dose: 40 mg Sodium Cl/Sod Bicarb/Potass Cl/PEG (Nulytely With Flavor Packs Marcia) 2,000 ml PO ONCE ONE Stop: 02/01/19 11:31 - Labs Labs: 01/30/19 05:20 01/30/19 05:20 PT 13.9 SECONDS (9.4-12.5) H 01/28/19 15:00 INR 1.25 01/28/19 15:00 APTT 33.7 Seconds (26.9-38.3) 01/28/19 15:00 - Constitutional Appears: No Acute Distress, Confused, Chronically Ill - Head Exam Head Exam: ATRAUMATIC, NORMAL INSPECTION - Eye Exam Eye Exam: EOMI. absent: Scleral icterus - ENT Exam ENT Exam: Mucous Membranes Dry. absent: Mucous Membranes Moist - Respiratory Exam Respiratory Exam: NORMAL BREATHING PATTERN. absent: Accessory Muscle Use - GI/Abdominal Exam GI & Abdominal Exam: Distended (mildly distended), Soft, Hypoactive Bowel Sounds. absent: Bruit, Firm, Guarding, Rigid, Tenderness, Mass, Pulsatile Mass Assessment and Plan - Assessment and Plan (Free Text) Assessment: 88 year old male with PMH of Dementia, CVA, dysphagia status post PEG, Afib, AICD, and CAD presenting for confusion and concern for coffee-ground output from PEG tube. Treatment of anemia s/p 3 units pRBCs and constipation with fecal impaction. Unclear prior endoscopic history. Plan: -Half gallon GoLytely today via PEG -H/H stable, continue to monitor -continue PPI BID -monitor stool/PEG output -Cont tap water enemas -no plan for endoscopic evaluation at present given stable H/H, DNR/DNI, and multiple comorbidities -will follow clinical course Patient seen and examined with Dr. Selby. Please see attestation for further recommendations/changes <Josiah Selby V - Last Filed: 02/01/19 17:26> Objective - Vital Signs/Intake and Output Vital Signs (last 24 hours): Temp Pulse Resp BP Pulse Ox 97.3 F L 74 20 146/87 100 02/01/19 14:00 02/01/19 14:00 02/01/19 14:00 02/01/19 14:00 02/01/19 14:00 Intake and Output: 02/01/19 02/01/19 06:59 18:59 Output Total 400 200 Balance -400 -200 - Medications Medications: Current Medications Hydrocortisone Sodium Succinate (Solu-Cortef) 25 mg IVP DAILY [facility] Last Admin: 02/01/19 11:10 Dose: 25 mg Dextrose/Sodium Chloride (Dextrose 5%/0.45% Ns 1000 Ml) 1,000 mls @ 30 mls/hr IV .Q24H [facility] Last Admin: 01/31/19 15:30 Dose: 30 mls/hr Ceftriaxone Sodium (Rocephin 1 Gram Ivpb) 1 gm in 100 mls @ 100 mls/hr IVPB DAILY [facility]; Protocol Stop: 02/07/19 16:46 Last Admin: 02/01/19 11:10 Dose: 100 mls/hr Ipratropium [place] (Atrovent) 0.5 mg IH [id number] [facility] Last Admin: 02/01/19 13:31 Dose: 0.5 mg Levalbuterol HCl (Xopenex) 1.25 mg IH [id number] [facility] Last Admin: 02/01/19 13:31 Dose: 1.25 mg Midodrine (Proamatine) 10 mg PO TID [facility] Last Admin: 02/01/19 17:19 Dose: Not Given Mupirocin (Bactroban Ointment) 0 gm NS BID [facility] Stop: 02/02/19 10:01 Last Admin: 02/01/19 11:12 Dose: 1 applic Pantoprazole Sodium (Protonix Inj) 40 mg IVP Q12 [facility] Last Admin: 02/01/19 12:50 Dose: 40 mg - Labs Labs: 01/30/19 05:20 01/30/19 05:20 PT 13.9 SECONDS (9.4-12.5) H 01/28/19 15:00 INR 1.25 01/28/19 15:00 APTT 33.7 Seconds (26.9-38.3) 01/28/19 15:00 Attending/Attestation - Attestation I have personally seen and examined this patient.: Yes I have fully participated in the care of the patient.: Yes I have reviewed all pertinent clinical information, including history, physical exam and plan: Yes Notes (Text): This patient was seen and evaluated along with the GI fellow. This is an addendum to the GI progress report dictated by the fellow. Discussed with the Dr. Espinosa. Patient would benefit from bowel clearance from my bowel. Significant fecal impaction extending over the mid sigmoid colon slowly improving with enemas. In addition it is reasonable to consider GoLYTELY bowel clearance -ordered half a gallon to be given via PEG tube if he is tolerating and having good bowel movements will advance the diet via G-tube 02/01/19 17:23
[2019-02-01] MEDS: cefTRIAXone 1 gm 1 GM/100 ML BAG IVPB SCH (11:10)
[2019-02-01] MEDS: Mupirocin 2% Ointment 15 GM TUBE NS SCH ×2 (11:12→18:13)
[2019-02-01] MEDS ORDERED: NuLYTELY (NACL/NAHCO3/KCL/PEG) 4L PO ONE (11:30)
--- NOTE | 2019-02-01 14:17 | PN ---
DATE: 02/01/2019 SUBJECTIVE: He is resting comfortably in bed today. Actually, today is one of the better days I have seen him. He made a thumbs up sign. He is not he is also less swollen. He is in good spirits. He smiled. That is basically his baseline. He has had an old stroke. He has left-sided use of his arm. The right side is flaccid. He is on Atrovent, Bactroban, dextrose, ProAmatine, Protonix, Rocephin, Solu-Cortef, and Xopenex. I believe he has been on MiraLax. Now, they are going to give him GoLYTELY to help get his bowels completely empty now that there is no obstruction. PHYSICAL EXAMINATION: VITAL SIGNS: He has a 97.5 temperature, 81 pulse, 150/75 blood pressure, 17 respiratory rate, 97% O2 sat on room air. HEENT: His head is atraumatic, normocephalic. HEART: Regular rate. LUNGS: Decreased breath sounds. ABDOMEN: Soft. Positive PEG tube. EXTREMITIES: No edema. He has got left-sided use of the right arm. The right side is flaccid from an old stroke. LABORATORY DATA: He has an 8 white count, 11.9 hemoglobin, 37 hematocrit with 198 platelets. Lactate is down to 1.9, which is good. He has a 140 sodium, potassium 3.1 that was two days ago, not sure why they did not do a SMA-7 or SMA-20. We will see if we can get one done today. It is ordered everyday. Also, hopefully tomorrow if he gets his bowels emptied today, we could discharge him back tomorrow to the [facility] who is a permanent resident, now that he is getting cleaned out. The patient with severe constipation. Art Espinosa DO [facility]TD[facility]
[2019-02-01] MEDS: Dextrose 5%/0.45% NS 1,000 ML IV SCH (18:07)
[2019-02-02] MEDS: Ipratropium 0.02% Inhal Soln (0.5 mg/2.5 ml) UD IH SCH ×3 (02:00→13:11)
[2019-02-02] MEDS: Levalbuterol 1.25 MG/3 ML Inhal Soln UD IH SCH ×3 (02:00→13:11)
--- NOTE | 2019-02-02 02:50 | PN ---
DATE: 02/01/2019 SUBJECTIVE: The patient is in bed, in no acute distress. PHYSICAL EXAMINATION: VITAL SIGNS: Temperature is 97, blood pressure is 146/80, respiratory rate is 20, and heart rate of 74. HEENT: Unremarkable. NECK: Supple. LUNGS: Decreased breath sounds. HEART: Normal S1 and S2. ABDOMEN: Soft. LABORATORY DATA: Reveals the white count to be 8,000, hemoglobin of 11. Creatinine is 1.1. Urinalysis is noted. Microbiology is reviewed with Klebsiella pneumonia. The patient is on ceftriaxone. ASSESSMENT AND PLAN: This is an 88-year-old male with percutaneous endoscopic gastrostomy tube, cerebrovascular accident, hypertension, atrial fibrillation, and chronic obstructive lung disease, admitted with septic shock, and Klebsiella healthcare-associated pneumonia, on ceftriaxone. Today is day #8 of ceftriaxone and we may discontinue the antibiotics upon discharge. No further antibiotics is necessary. We will discontinue antibiotics at this point, rather no further antibiotics upon discharge. The patient has had eight days of Klebsiella therapy. Evelio Mccurdy MD
[2019-02-02] MEDS: Mupirocin 2% Ointment 15 GM TUBE NS SCH (09:54)
--- NOTE | 2019-02-02 11:13 | CP.PCM.PN ---
<Edwin Harrison - Last Filed: 02/02/19 17:05> Subjective - Date & Time of Evaluation Date of Evaluation: 02/02/19 Time of Evaluation: 07:30 - Subjective Subjective: PGY6 GI Fellow Progress Note Patient seen and examined bedside this morning. The patient opens his eyes and makes eye contact when name called. Denies any olivier pain at this time. No other complaints verbalized. No issues overnight. 12 system ROS performed and negative except where stated Objective - Vital Signs/Intake and Output Vital Signs (last 24 hours): Temp Pulse Resp BP Pulse Ox 97.5 F L 70 16 141/77 99 02/02/19 06:00 02/02/19 06:00 02/02/19 06:00 02/02/19 06:00 02/02/19 06:00 Intake and Output: 02/02/19 02/02/19 06:59 18:59 Output Total 400 Balance -400 - Medications Medications: Current Medications Hydrocortisone Sodium Succinate (Solu-Cortef) 25 mg IVP DAILY [facility] Last Admin: 02/02/19 09:52 Dose: 25 mg Dextrose/Sodium Chloride (Dextrose 5%/0.45% Ns 1000 Ml) 1,000 mls @ 30 mls/hr IV .Q24H [facility] Last Admin: 02/01/19 18:07 Dose: 30 mls/hr Ipratropium [place] (Atrovent) 0.5 mg IH [id number] [facility] Last Admin: 02/02/19 07:23 Dose: 0.5 mg Levalbuterol HCl (Xopenex) 1.25 mg IH [id number] [facility] Last Admin: 02/02/19 07:23 Dose: 1.25 mg Midodrine (Proamatine) 10 mg PO TID [facility] Last Admin: 02/02/19 09:53 Dose: Not Given Pantoprazole Sodium (Protonix Inj) 40 mg IVP Q12 [facility] Last Admin: 02/02/19 09:52 Dose: 40 mg - Labs Labs: 01/30/19 05:20 01/30/19 05:20 PT 13.9 SECONDS (9.4-12.5) H 01/28/19 15:00 INR 1.25 01/28/19 15:00 APTT 33.7 Seconds (26.9-38.3) 01/28/19 15:00 - Constitutional Appears: Confused, Chronically Ill - Eye Exam Eye Exam: EOMI, PERRL - ENT Exam ENT Exam: Mucous Membranes Moist - Respiratory Exam Respiratory Exam: Clear to Ausculation Bilateral. absent: Rales, Rhonchi, Wheezes - Cardiovascular Exam Cardiovascular Exam: RRR, +S1, +S2 - GI/Abdominal Exam GI & Abdominal Exam: Soft, Normal Bowel Sounds. absent: Distended, Firm, Guarding, Rigid, Tenderness, Organomegaly - Extremities Exam Extremities Exam: Normal Inspection. absent: Pedal Edema - Neurological Exam Neurological Exam: Altered, Awake. absent: Oriented x3 - Psychiatric Exam Psychiatric exam: Flat Affect - Skin Skin Exam: Dry, Warm Assessment and Plan - Assessment and Plan (Free Text) Assessment: Patient is an 88yo male with PMHx significant for dementia, CVA complicated by d ysphagia status post PEG, Afib and CAD presenting for confusion and concern for coffee-ground output from PEG tube Plan: -S/P 2L GoLytely with significant bowel output; no melena/hematochezia noted -No further episodes of hematemesis or coffee ground via PEG -OK to resume tube feeding at prior rate -Continue PPI therapy -Ongoing Miralax therapy (17g BID) to prevent constipation/fecal impaction; HOLD when patient has 2+ BM/day -No plan for endoscopic evaluation at present given stable H/H, DNR/DNI, and multiple comorbidities <Bal,Kodeysil V - Last Filed: 02/02/19 19:39> Objective - Vital Signs/Intake and Output Vital Signs (last 24 hours): Temp Pulse Resp BP Pulse Ox 97.3 F L 61 18 135/82 100 02/02/19 14:00 02/02/19 14:00 02/02/19 14:00 02/02/19 14:00 02/02/19 14:00 - Labs Labs: 01/30/19 05:20 01/30/19 05:20 PT 13.9 SECONDS (9.4-12.5) H 01/28/19 15:00 INR 1.25 01/28/19 15:00 APTT 33.7 Seconds (26.9-38.3) 01/28/19 15:00 Attending/Attestation - Attestation I have personally seen and examined this patient.: Yes I have fully participated in the care of the patient.: Yes I have reviewed all pertinent clinical information, including history, physical exam and plan: Yes Notes (Text): This patient was seen and evaluated along with the GI fellow. There is an a ddendum to the GI progress report dictated by the fellow. Patient did not have any mass finally also had a half a gallon of GoLYTELY had a good clearance. Patient was admitted to the massive fecal impaction. Patient also had a coffee- ground material from the G-tube which cleared. We will restart the G-tube feeding patient is scheduled to be transferred back to the [place] [facility]. If the patient has an active bleeding or significant drop in blood count will consider endoscopy evaluation Patient need to be on a bowel clearance regimen MiraLAX twice a day and he can be cut down to once a day if he has more than 2 bowel movements this was explained to the nursing staff to be conveyed to the [place] [facility] staff. Thank you Dr. Espinosa for allowing us to take care of the patient 02/02/19 19:35
--- NOTE | 2019-02-02 13:26 | CP.PCM.PCO ---
Additional Comments - Additional Comments Additional Comments: Pt is for discharge to [place]. Left upper extremity midline removed at 12cm length. Pt tolerated procedure.
[2019-02-02 15:30] VITALS: BP 135/82; PULSE 61; RESP 18; TEMP 97.3; O2SAT 100
--- NOTE | 2019-02-02 21:42 | PN ---
DATE: 02/02/2019 SUBJECTIVE: The patient is in bed, in no acute distress, nontoxic. PHYSICAL EXAMINATION VITAL SIGNS: Temperature is 97, blood pressure is 130/80, respiratory rate of 18. HEENT: Unremarkable. NECK: Supple. LUNGS: Have decreased breath sounds. HEART: Normal S1, S2. ABDOMEN: Soft. LABORATORY DATA: Reveals a white count of 8000, hemoglobin of 11, platelets of 198. Chemistries are noted. The patient's creatinine is 1.1. ASSESSMENT AND PLAN: An 88-year-old male who was seen early this morning in room 572, bed 1 with a history of percutaneous endoscopic gastrostomy tube, cerebrovascular accident, hypertension, atrial fibrillation, chronic obstructive lung disease, admitted with septic shock, Klebsiella healthcare associated pneumonia, has been treated with the antibiotics of ceftriaxone and was completed. The patient is at risk for developing nosocomial infections. Evelio Mccurdy MD
--- NOTE | 2019-02-03 03:28 | DS ---
HOSPITAL COURSE: He is resting comfortably in bed. He did finally have multiple bowel movements. He was given GoLytely by GI yesterday. He is overall I believe back to his baseline. I am hoping to get him back to [facility] today if it is okay with GI and probably keep him on MiraLax daily. Infectious Disease said he has stopped his Rocephin today, which is good. He had severe constipation, a lower GI bleed, he developed an infection, anemia, abdominal distention, UTI. We finally got his bowels moving. PHYSICAL EXAMINATION GENERAL: He is alert. He tries to talk, he is mumbling. VITAL SIGNS: A 97.5 temperature, 70 pulse, 141/77 blood pressure, 16 respiratory rate, and 99% O2 sat on room air. HEENT: Head; atraumatic, normocephalic. HEART: Regular rate. LUNGS: Decreased breath sounds. ABDOMEN: Soft. He has got a feeding tube. EXTREMITIES: No edema. NEUROLOGIC: He has right-sided weakness from an old CVA. LABORATORY DATA: He had an 8 white count, 11.9 hemoglobin, 37 hematocrit, and 198 platelets. ASSESSMENT AND PLAN: I ordered his chemistries each day, none today, none on the , none on the . The last chemistry was on the . I am not sure why he cannot get a chemistry done. I do have the CBC each day. There is no chemistry. The last blood sugar was 81. I do not know why I could not get a chemistry back from lab. We will try and discharge him today. Art Espinosa DO
== END 2019-02-02 17:56 | DRG 871 ==
LOC: ED 19:59 → ERH 22:09 → CCU 23:12 → 5RSO 01-30 17:53
PROVIDERS: ADMIT Family Medicine; ATTEND Family Medicine
PROC: 05HM33Z Insertion of Infusion Device into Right Internal Jugular Vein, Percutaneous Approach (ICD-10-PCS; principal; 2019-01-25)
PROC: B543ZZA Ultrasonography of Right Jugular Veins, Guidance (ICD-10-PCS; 2019-01-25)
PROC: 30233N1 Transfusion of Nonautologous Red Blood Cells into Peripheral Vein, Percutaneous Approach (ICD-10-PCS; 2019-01-26)
PROC: 30233R1 Transfusion of Nonautologous Platelets into Peripheral Vein, Percutaneous Approach (ICD-10-PCS; 2019-01-26)
PROC: 3E0F7GC Introduction of Other Therapeutic Substance into Respiratory Tract, Via Natural or Artificial Opening (ICD-10-PCS; 2019-01-26)
PROC: 05H633Z Insertion of Infusion Device into Left Subclavian Vein, Percutaneous Approach (ICD-10-PCS; 2019-01-30)
PROC: B547ZZA Ultrasonography of Left Subclavian Vein, Guidance (ICD-10-PCS; 2019-01-30)
DX: A41.9 Sepsis, unspecified organism (principal); R65.21 Severe sepsis with septic shock; J69.0 Pneumonitis due to inhalation of food and vomit; J15.0 Pneumonia due to Klebsiella pneumoniae; J44.0 Chronic obstructive pulmonary disease with (acute) lower respiratory infection; K92.2 Gastrointestinal hemorrhage, unspecified; N39.0 Urinary tract infection, site not specified; E87.2 Acidosis; I69.351 Hemiplegia and hemiparesis following cerebral infarction affecting right dominant side; D64.9 Anemia, unspecified; L98.429 Non-pressure chronic ulcer of back with unspecified severity; I48.91 Unspecified atrial fibrillation; R62.7 Adult failure to thrive; I10 Essential (primary) hypertension; K56.41 Fecal impaction; F03.90 Unspecified dementia, unspecified severity, without behavioral disturbance, psychotic disturbance, mood disturbance, and anxiety; G40.909 Epilepsy, unspecified, not intractable, without status epilepticus; N40.0 Benign prostatic hyperplasia without lower urinary tract symptoms; I25.10 Atherosclerotic heart disease of native coronary artery without angina pectoris; E03.9 Hypothyroidism, unspecified; R13.10 Dysphagia, unspecified; Z66 Do not resuscitate; Y95 Nosocomial condition; Z93.1 Gastrostomy status; Z95.810 Presence of automatic (implantable) cardiac defibrillator

== ENCOUNTER 2019-02-05 06:19 | Inpatient (IN) | payer MEDICARE ==
--- NOTE | 2019-02-05 07:17 | ED PDOC ---
Arrival/HPI - General Chief Complaint: GI Problem Time Seen by Provider: 02/05/19 07:00 Historian: Patient - History of Present Illness Narrative History of Present Illness (Text): 02/05/19 07:00 Luisito Mays is an 88 year old male, with a past medical history of PEG tube, CVA (with right sided paralysis), a-fib, CAD, hypertension, COPD, BPH, hypothyroidism, seizures, and depression, sent to the emergency department who complain of bloody and dark stools. At baseline, patient is nonverbal and with right sided paralysis. Patient was able to make eye contact. Further HPI and ROS are limited secondary to patient's baseline condition. Symptom Onset: Gradual Symptom Course: Unchanged Activities at Onset: Light Context: Home (long-term) Past Medical History - Provider Review Nursing Documentation Reviewed: Yes Primary Care Provider: Art Espinosa - Infectious Disease Hx of Infectious Diseases: None - Cardiac Hx Cardiac Disorders: Yes Hx Atrial Fibrillation: Yes Hx Hypertension: Yes - Pulmonary Hx Respiratory Disorders: Yes Hx Chronic Obstructive Pulmonary Disease (COPD): Yes - Neurological Hx Neurological Disorder: Yes HX Cerebrovascular Accident: Yes Hx Dementia: Yes Hx Seizures: Yes Other/Comment: dysphagia - HEENT Hx HEENT Disorder: No - Renal Hx Renal Disorder: No - Endocrine/Metabolic Hx Endocrine Disorders: Yes Hx Hypothyroidism: Yes - Hematological/Oncological Hx Blood Disorders: No - Integumentary Hx Dermatological Disorder: No - Musculoskeletal/Rheumatological Hx Musculoskeletal Disorders: No - Gastrointestinal Hx Gastrointestinal Disorders: Yes Hx Bowel Surgery: Yes (PEG tube) HX Swallowing Problems: Yes (dysphagia) - Genitourinary/Gynecological Hx Genitourinary Disorders: Yes - Psychiatric Hx Psychophysiologic Disorder: Yes Hx Depression: Yes Hx Substance Use: No - Surgical History Other/Comment: PEG tube - Anesthesia Hx Anesthesia: Yes Hx Anesthesia Reactions: No Hx Malignant Hyperthermia: No Family/Social History - Physician Review Nursing Documentation Reviewed: Yes Family/Social History: Unknown Family HX Smoking Status: Unknown If Ever Smoked Hx Alcohol Use: No Hx Substance Use: No Allergies/Home Meds Allergies/Adverse Reactions: Allergies No Known Allergies Allergy (Verified 02/05/19 13:58) Home Medications: Home Meds Medication Instructions Recorded Confirmed Acetaminophen [Tylenol 325mg tab] 650 mg PEG Q4H PRN 02/05/19 02/05/19 Albuterol/Ipratropium [Duoneb 3 0.3 puff INH Q6H PRN 02/05/19 02/05/19 mg/0.5 mg (3 ml) UD] Amino Acid/Protein/Vit C/Zinc 30 ml PEG TID 02/05/19 02/05/19 [Prosource Rafat Protein Liquid] Collagenase [Santyl] 1 oin TOP HS 02/05/19 02/05/19 Ipratropium 0.02% [Atrovent] 0.5 mg INH Q6H PRN 02/05/19 02/05/19 Levalbuterol [Xopenex] 1 puff INH Q6H PRN 02/05/19 02/05/19 Midodrine HCl 10 mg PEG TID 02/05/19 02/05/19 Multivit-Min/Iron/Folic Acid/K 1 tab PEG DAILY 02/05/19 02/05/19 [Adults Multivitamin Tablet] Pantoprazole [Protonix EC Tab] 40 mg PEG Q12H 02/05/19 02/05/19 Polyethylene Glycol 3350 [Glycolax] 17 gm PEG DAILY 02/05/19 02/05/19 Silver Sulfadiazine 1% [Silvadene 1 oin TOP HS 02/05/19 02/05/19 1%] Vits A and D/White Pet/Lanolin 1 oin TOP Q8H 02/05/19 02/05/19 [Gnp Vitamin A and D Ointment] Zinc Oxide/Cl-Xylenol/Petrolat 1 oin TOP QSHIFT 02/05/19 02/05/19 [Periield Ointment] Review of Systems - Review of Systems Systems not reviewed;Unavailable: Other (baseline nonverbal) Physical Exam Vital Signs Reviewed: Yes Vital Signs Temp Pulse Resp BP Pulse Ox 02/05/19 06:34 97.7 F 76 18 156/81 H 96 Temperature: Afebrile Blood Pressure: Normal Pulse: Regular Respiratory Rate: Normal Appearance: Positive for: Well-Appearing, Non-Toxic, Comfortable Pain Distress: None Mental Status: Positive for: Alert and Oriented X 3 - Systems Exam Head: Present: Atraumatic, Normocephalic Pupils: Present: PERRL Extroacular Muscles: Present: EOMI Conjunctiva: Present: Normal Mouth: Present: Moist Mucous Membranes Neck: Present: Normal Range of Motion Respiratory/Chest: Present: Clear to Auscultation, Good Air Exchange. No: Respiratory Distress, Accessory Muscle Use, Wheezes, Rales, Rhonchi Cardiovascular: Present: Regular Rate and Rhythm, Normal S1, S2. No: Murmurs, Rub, Gallop Abdomen: Present: Distention, Normal Bowel Sounds, Feeding Tubes (LUQ), Other (soft). No: Tenderness, Peritoneal Signs Rectal: Present: Occult Blood (hemoccult positive), Hemorrhoids (multiple, external), Other (dark brown stool). No: Melena Back: Present: Normal Inspection Upper Extremity: No: Cyanosis, Edema, Normal ROM, Neurovascularly Intact (right upper extremity) Lower Extremity: No: Edema, Normal ROM, Neurovascularly Intact (right lower extremity) Neurological: No: Speech Normal (nonverbal at baseline) Skin: Present: Warm, Dry, Normal Color. No: Rashes Psychiatric: Present: Alert, Oriented x 3, Normal Insight, Normal Concentration Medical Decision Making ED Course and Treatment: 02/05/19 07:00 Impression: Patient is an 88 year old male with a past medical history of PEG tube, CVA, a-fib, CAD, hypertension, COPD, BPH, hypothyroidism, seizures, and depression, sent to the emergency department by long-term who complain of bloody and dark stools. Plan: -- Labs -- Reassess and disposition Prior Visits: Notes and results from previous visits were reviewed. Progress Notes: Patient seen and examined. Hemoccult positive stool, with no melena or olivier blood noted. Dr. Espinosa in the emergency department shortly after patient arrived; saw patient, requests call back when labs result, if hgb is stable patient may be able to be discharged. 02/05/19 08:[address] Espinosa regarding pt's hemoglobin; requests consult per Dr. Selby. Will admit under observation status. 02/05/19 10:[address] Selby, who requests CT w/o contrast. - RAD Interpretation Narrative RAD Interpretations (Text): 02/05/19 11:07 Abdomen/Pelvis CT without IV shows: IMPRESSION: There is severe distention of the colon. There is a fluid level in the rectum. The rectosigmoid measures 10 cm in diameter. The fecal impaction seen previously has resolved. Hardwood Floor Finisher: Radiologist - EKG Interpretation EKG Interpretation (Text): 02/05/19 06:57 Reviewed EKG, shows: NSR at 74 BPM. Normal [place]. Normal Intervals. Incomplete RBBB. No ST elevations. Interpreted by ED Physician: Yes Type: 12 lead EKG - Scribe Statement The provider has reviewed the documentation as recorded by the Scribe Jones Vigil All medical record entries made by the Scribe were at my direction and personally dictated by me. I have reviewed the chart and agree that the record accurately reflects my personal performance of the history, physical exam, medical decision making, and the department course for this patient. I have also personally directed, reviewed, and agree with the discharge instructions and disposition. Disposition/Present on Arrival - Present on Arrival Any Indicators Present on Arrival: Yes History of DVT/PE: No History of Uncontrolled Diabetes: No Urinary Catheter: Yes History of Decub. Ulcer: No History Surgical Site Infection Following: None - Disposition Have Diagnosis and Disposition been Completed?: Yes Diagnosis: GI bleed Disposition: HOSPITALIZED Disposition Time: 09:45 Patient Problems: Current Active Problems Problem Status Onset GI bleed Acute Condition: STABLE
[2019-02-05 07:50] LABS: EOS # 0.1 (0.0-0.7); EOS % 0.8 % (1.5-5.0); HEMOGLOBIN 11.4 g/dL (14.0-18.0); LYMPH # 1.2 (1.2-3.4); LYMPH % 11.8 % (22.0-35.0); MEAN CELL VOLUME 91.3 fl (80.0-105.0); MEAN CORPUSCULAR HEMOGLOBIN 29.3 pg (25.0-35.0); MEAN CORPUSCULAR HGB CONC 32.1 g/dl (31.0-37.0); MONO # 0.5 (0.1-0.6); MONO % 5.5 % (1.0-6.0); RBC 3.89 10^6/uL (3.5-6.1); RED CELL DISTRIBUTION WIDTH 19.5 % (11.5-14.5); WHITE BLOOD COUNT 9.8 10^3/uL (4.5-11.0)
[2019-02-05 08:02] LABS: ALB/GLOB RATIO 0.8 (1.1-1.8); ALBUMIN 2.5 g/dL (3.0-4.8); ALT/SGPT 12 U/L (7-56); AST/SGOT 24 U/L (17-59); BLOOD UREA NITROGEN 29 mg/dL (7-21); CALCIUM 8.6 mg/dL (8.4-10.5); GFR NON-AFRICAN AMERICAN > 60
[2019-02-05 08:04] LABS: INR 1.13; PARTIAL THROMBOPLASTIN TIME 27.4 Seconds (26.9-38.3); PROTHROMBIN TIME 12.8 SECONDS (9.4-12.5)
--- NOTE | 2019-02-05 11:11 | CT ---
Date of service: 02/05/2019 PROCEDURE: CT Abdomen and Pelvis without intravenous contrast HISTORY: abdominal pain COMPARISON: None. TECHNIQUE: Without contrast.. Contrast dose: Radiation dose: Total exam DLP = 993.37 mGy-cm. This CT exam was performed using one or more of the following dose reduction techniques: Automated exposure control, adjustment of the mA and/or kV according to patient size, and/or use of iterative reconstruction technique. FINDINGS: LOWER THORAX: Moderate bilateral pleural effusions with bibasilar atelectasis LIVER: Unremarkable. No gross lesion or ductal dilatation. GALLBLADDER AND BILE DUCTS: Gallstones PANCREAS: Unremarkable. No gross lesion or ductal dilatation. SPLEEN: Unremarkable. ADRENALS: Unremarkable. No mass. KIDNEYS AND URETERS: Unremarkable. No hydronephrosis. No solid mass. VASCULATURE: Unremarkable. No aortic aneurysm. Aortic calcification BOWEL: There is severe distention of the colon. There is a fluid level in the rectum. The rectosigmoid measures 10 cm in diameter. The fecal impaction seen previously has resolved. APPENDIX: Unremarkable. Normal appendix. PERITONEUM: Unremarkable. No free fluid. No free air. There is a mild amount of subcutaneous edema LYMPH NODES: Unremarkable. No enlarged lymph nodes. BLADDER: Lucas catheter in the bladder REPRODUCTIVE: Unremarkable. BONES: No acute fracture. OTHER FINDINGS: None. IMPRESSION: There is severe distention of the colon. There is a fluid level in the rectum. The rectosigmoid measures 10 cm in diameter. The fecal impaction seen previously has resolved.
[2019-02-05] MEDS ORDERED: Levalbuterol 1.25 MG/3 ML Inhal Soln UD INH PRN (12:47)
[2019-02-05] MEDS ORDERED: Sodium Chloride 0.45% 1,000 ML IV SCH (13:00)
--- NOTE | 2019-02-05 13:37 | CP.PCM.CON ---
<Edwin Harrison - Last Filed: 02/05/19 16:33> History of Present Illness - History of Present Illness History of Present Illness: PGY6 GI Fellow Consult Note Patient is an 88yo male with PMHx significant for dementia, CVA complicated by dysphagia status post PEG, atrial fibrillation, CAD, COPD, seizures, BPH, hypothyroidism, sacral ulcers who was sent from ID for dark stool and hematochezia. Patient was recently admitted to [facility] and had GI evaluation for anemia and concern of UGI bleeding. He was noted to have significant fecal burden/impaction which was relieved with 2L GoLytely laxative therapy. On return to ID he was noted to have dark, liquid stool along with occasional episodes of hematochezia. Patient unable to provide history and does not answer any questions when asked. 12 system ROS cannot be completed given dementia PMHx: See HPI PSHx: None on record FHx: Unable to assess Social: No documented tobacco, EtOH or illicit drug use Endo: None on record Past Patient History - Infectious Disease Hx of Infectious Diseases: None - Past Social History Smoking Status: Unknown If Ever Smoked - CARDIAC Hx Cardiac Disorders: Yes Hx Atrial Fibrillation: Yes Hx Hypertension: Yes - PULMONARY Hx Respiratory Disorders: Yes Hx Chronic Obstructive Pulmonary Disease (COPD): Yes - NEUROLOGICAL Hx Neurological Disorder: Yes HX Cerebrovascular Accident: Yes Hx Dementia: Yes Hx Seizures: Yes Other/Comment: dysphagia - HEENT Hx HEENT Problems: No - RENAL Hx Chronic Kidney Disease: No - ENDOCRINE/METABOLIC Hx Endocrine Disorders: Yes Hx Hypothyroidism: Yes - HEMATOLOGICAL/ONCOLOGICAL Hx Blood Disorders: No - INTEGUMENTARY Hx Dermatological Problems: No - MUSCULOSKELETAL/RHEUMATOLOGICAL Hx Musculoskeletal Disorders: No - GASTROINTESTINAL Hx Gastrointestinal Disorders: Yes Hx Bowel Surgery: Yes (PEG tube) HX Swallowing Problems: Yes (dysphagia) - GENITOURINARY/GYNECOLOGICAL Hx Genitourinary Disorders: Yes - PSYCHIATRIC Hx Psychophysiologic Disorder: Yes Hx Depression: Yes Hx Substance Use: No - SURGICAL HISTORY Other/Comment: PEG tube - ANESTHESIA Hx Anesthesia: Yes Hx Anesthesia Reactions: No Hx Malignant Hyperthermia: No Meds Allergies/Adverse Reactions: Allergies Allergy/AdvReac Type Severity Reaction Status Date / Time No Known Allergies Allergy Verified 02/05/19 13:58 - Medications Medications: Current Medications Collagenase (Santyl) 0 gm TOP HS [facility] Sodium Chloride (Sodium Chloride 0.45%) 1,000 mls @ 40 mls/hr IV .Q24H [facility] Sodium Chloride (Sodium Chloride 0.45%) 1,000 mls @ 40 mls/hr IV .Q24H [facility] Potassium Chloride (Potassium Chloride 10 Meq/100 Ml) 10 meq in 100 mls @ 100 mls/hr IVPB ONCE ONE Stop: 02/05/19 13:46 Levalbuterol HCl (Xopenex) 1.25 mg INH Q6H PRN PRN Reason: Shortness of Breath Midodrine (Proamatine) 10 mg PEG TID [facility] Polyethylene Glycol (Miralax) 17 gm PEG DAILY [facility] Silver Sulfadiazine (Silvadene 1% 25 Gm) 0 gm TP HS [facility] Physical Exam - Constitutional Appears: No Acute Distress, Chronically Ill - Eye Exam Eye Exam: PERRL - ENT Exam ENT Exam: Mucous Membranes Moist - Respiratory Exam Respiratory Exam: Clear to Auscultation Bilateral. absent: Rales, Rhonchi, Wheezes - Cardiovascular Exam Cardiovascular Exam: RRR, +S1, +S2 - GI/Abdominal Exam GI & Abdominal Exam: Distended, Firm, Normal Bowel Sounds. absent: Guarding, Organomegaly, Rigid, Soft, Tenderness Additional comments: PEG in place - Extremities Exam Extremities exam: Positive for: normal inspection. Negative for: pedal edema - Neurological Exam Neurological exam: Altered - Psychiatric Exam Psychiatric exam: Flat Affect - Skin Skin Exam: Dry, Warm Results - Vital Signs Recent Vital Signs: Last Vital Signs Temp 98.0 F 02/05/19 12:03 Pulse 71 02/05/19 12:03 Resp 18 02/05/19 12:03 BP 144/72 02/05/19 12:03 Pulse Ox 98 02/05/19 12:03 - Labs Result Diagrams: 02/05/19 07:40 02/05/19 07:40 Labs: Laboratory Results - last 24 hr 02/05/19 02/05/19 02/05/19 07:40 07:40 07:40 WBC 9.8 D RBC 3.89 Hgb 11.4 L Hct 35.5 L MCV 91.3 MCH 29.3 MCHC 32.1 RDW 19.5 H Plt Count 216 MPV 9.0 Neut % (Auto) 81.9 H Lymph % (Auto) 11.8 L [place] % (Auto) 5.5 Eos % (Auto) 0.8 L Baso % (Auto) 0.0 Lymph # (Auto) 1.2 [place] # (Auto) 0.5 Eos # (Auto) 0.1 Baso # (Auto) 0.00 Absolute Neuts (auto) 7.98 H PT 12.8 H INR 1.13 APTT 27.4 Sodium 138 Potassium 3.5 L Chloride 107 Carbon Dioxide 28 Anion Gap 6 L BUN 29 H Creatinine 0.6 L Est GFR ( Amer) > 60 Est GFR (Non-Af Amer) > 60 Random Glucose 90 Calcium 8.6 Phosphorus 2.5 Magnesium 2.1 Total Bilirubin 0.4 AST 24 ALT 12 Alkaline Phosphatase 57 Total Protein 5.7 L Albumin 2.5 L Globulin 3.2 Albumin/Globulin Ratio 0.8 L Assessment & Plan - Assessment and Plan (Free Text) Assessment: Patient is an 88yo male with PMHx significant for dementia, CVA complicated by dysphagia status post PEG, atrial fibrillation, CAD, COPD, seizures, BPH, hypothyroidism, sacral ulcers who was sent from ID for dark stool and hematochezia -Melena, suspect stercoral ulceration given known fecal impaction -Chronic idiopathic constipation -Colonic distention on imaging - R/O anorectal spasm, ileus or obstruction -Dysphagia s/p PEG -Dementia Plan: -CT imaging reviewed with significant colonic gasseous distention and recurrent semi-solid fecal impaction -Plan for flexible sigmoidoscopy tomorrow for colonic decompression and evaluation of rectal bleeding - consent obtained via telephone from pt's [place] -NPO past [place] -Ongoing laxative therapy with Dulcolax suppository tonight and Miralax 17g PO HS -H/H stable - Date & Time Date: 02/05/19 Time: 10:30 <Josiah Selby V - Last Filed: 02/05/19 19:51> Meds - Medications Medications: Current Medications Collagenase (Santyl) 0 gm TOP HS [facility] Sodium Chloride (Sodium Chloride 0.45%) 1,000 mls @ 40 mls/hr IV .Q24H [facility] Last Admin: 02/05/19 14:12 Dose: 40 mls/hr Sodium Chloride (Sodium Chloride 0.45%) 1,000 mls @ 40 mls/hr IV .Q24H [facility] Levalbuterol HCl (Xopenex) 1.25 mg INH Q6H PRN PRN Reason: Shortness of Breath Midodrine (Proamatine) 10 mg PEG TID [facility] Last Admin: 02/05/19 18:02 Dose: 10 mg Polyethylene Glycol (Miralax) 17 gm PEG DAILY [facility] Silver Sulfadiazine (Silvadene 1% 25 Gm) 0 gm TP HS [facility] Results - Vital Signs Recent Vital Signs: Last Vital Signs Temp 98 F 02/05/19 15:55 Pulse 74 02/05/19 15:55 Resp 18 02/05/19 18:10 BP 152/91 H 02/05/19 15:55 Pulse Ox 95 02/05/19 15:55 - Labs Result Diagrams: 02/05/19 07:40 02/05/19 07:40 Labs: Laboratory Results - last 24 hr 02/05/19 02/05/19 02/05/19 07:40 07:40 07:40 WBC 9.8 D RBC 3.89 Hgb 11.4 L Hct 35.5 L MCV 91.3 MCH 29.3 MCHC 32.1 RDW 19.5 H Plt Count 216 MPV 9.0 Neut % (Auto) 81.9 H Lymph % (Auto) 11.8 L [place] % (Auto) 5.5 Eos % (Auto) 0.8 L Baso % (Auto) 0.0 Lymph # (Auto) 1.2 [place] # (Auto) 0.5 Eos # (Auto) 0.1 Baso # (Auto) 0.00 Absolute Neuts (auto) 7.98 H PT 12.8 H INR 1.13 APTT 27.4 Sodium 138 Potassium 3.5 L Chloride 107 Carbon Dioxide 28 Anion Gap 6 L BUN 29 H Creatinine 0.6 L Est GFR ( Amer) > 60 Est GFR (Non-Af Amer) > 60 Random Glucose 90 Calcium 8.6 Phosphorus 2.5 Magnesium 2.1 Total Bilirubin 0.4 AST 24 ALT 12 Alkaline Phosphatase 57 Total Protein 5.7 L Albumin 2.5 L Globulin 3.2 Albumin/Globulin Ratio 0.8 L Attending/Attestation - Attestation I have personally seen and examined this patient.: Yes I have fully participated in the care of the patient.: Yes I have reviewed all pertinent clinical information: Yes Notes (Text): This patient was seen and evaluated along with the GI fellow earlier today. Is an addendum to the GI consultation report dictated by the fellow. This patient was recently discharged from the hospital following conservative management for massive fecal impaction. CT scan was reviewed. Significant colonic distention with a large amount of semisolid stool material present in the rectum. [place] laceration should be considered in the differential diagnosis. Patient has been scheduled for a flexible sigmoidoscopy and colonic dec ompression tomorrow. Follow-up of the hemoglobin hematocrit IV hydration 02/05/19 19:49
[2019-02-05] MEDS: Sodium Chloride 0.45% 1,000 ML IV SCH (14:12)
--- NOTE | 2019-02-05 19:02 | CARD ---
APPROVED REPORT Date of service: 02/05/2019 EKG Measurement Heart [id number] [place] [id number] [id number] <Conclusion> Normal sinus rhythm Low voltage QRS Right bundle branch block Abnormal Electrocardiogram
[2019-02-05 19:06] VITALS: BMI 19.6
[2019-02-05] MEDS ORDERED: Pneumococcal 23-Valent Vaccine IM ONE (19:06)
--- NOTE | 2019-02-05 21:02 | HP ---
DATE OF EXAM: 02/05/2019 HISTORY OF PRESENT ILLNESS: He is resting comfortably in bed this morning in [facility]. I had a call this morning from the snf [facility] where he is a permanent resident that he had a bloody stool, dark stool this morning. He just was released from [facility] where he had severe constipation and was cleared to be discharged back to the snf by GI and now he has got a dark bloody stool, positive heme, but he is comfortable, alert. No change in his condition mentally. PAST MEDICAL HISTORY: He is an 88-year-old white man with past medical history of a feeding tube, CVA with right-sided paralysis, atrial fibrillation, coronary artery disease, hypertension, COPD, BPH, hypothyroidism, seizures and depression and is now here for evaluation of with a bloody stool. He has right-sided paralysis, dysphasia, feeding tube. He can make the thumb sign or an okay sign with his left hand, which is his good hand. He has been depressed. ALLERGIES: NO KNOWN DRUG ALLERGIES. SOCIAL HISTORY: No smoker. No drinking. No drugs. CURRENT MEDICATIONS: He is on Tylenol, DuoNeb, vitamins, Santyl for the scan, Atrovent, Xopenex, midodrine vitamins, Protonix, polyethylene glycol, Silvadene cream, vitamins and zinc. REVIEW OF SYSTEMS: He is nonverbal. He is looking at you and that his baseline. He can make an "o" sign with his hand and it is a good sign, which he did for me, which is his baseline. When he feels okay he gives me the okay sign with his left hand or a thumbs-up sign. He tries to talk a little bit, it comes out as a mumble and that is also his baseline. His eyes are wide open looking at me. He did have a dark bloody stool this morning and that is why he is in the hospital. PHYSICAL EXAMINATION VITAL SIGNS: He has a 97.7 temperature, 76 pulse, 18 respiratory rate, 166/81 blood pressure, and 96% O2 sat. GENERAL: He is well-appearing, nontoxic, comfortable. Alert and oriented, in bed to his orientation. HEENT: Head is atraumatic, normocephalic. Extraocular muscles are intact. Throat is moist. NECK: Supple. HEART: Regular rate. Normal S1, S2. LUNGS: Decreased breath sounds but clear to auscultation bilaterally. No wheezes, no rhonchi nor rales. ABDOMEN: Soft, nontender. Positive bowel sounds. He has got a feeding tube in place, it looks good. RECTAL: There was a rectal exam in the ER, which showed dark stool, heme-positive, occult blood. EXTREMITIES: Both lower extremities have no edema. His right side is flaccid and paralysis from his stroke. SKIN: His left arm is a little bit black and blue and swollen from his multiple blood draws and IVs. Other than that his skin is pretty good. NEUROLOGIC: He is alert, nonverbal. CONSULTATIONS: I have requested Dr. Selby, the crepe laminator operator to reevaluate him for the dark stools with bleeding to see if he needs to do an endoscopy, colonoscopy or we just watch him. DIAGNOSTICS: A CT scan of the abdomen and pelvis shows severe distention of the colon. There is a fluid level in the rectum. The rectosigmoid measures 10 cm in diameter and the fecal impaction seen previously has resolved. EKG has normal sinus rhythm, 74 beats per minute, normal axis, normal intervals, incomplete right bundle-branch block. No ST elevations. He is put in on observation status though with IV fluids. Checking his stools, blood tests, replace potassium. LABORATORY DATA: He has a 138 sodium, potassium 3.5, those will be replaced. BUN is 29, creatinine 0.6. He is on IV fluids. GFR is greater than 60, sugar is 90, calcium is 8.6, phosphorous is 2.5, magnesium is 2.1 and total bili is 0.4. AST is 24, ALT is 12, alk phos 57, total protein is 5.7. INR is 1.13. He has a 9.8 white count, 11.4 hemoglobin, 35.5 hematocrit with a 216 platelets. His last lab was 11.9 and now it is 11.4. He was as low as 7.3 when he came in the last time. ASSESSMENT AND PLAN: He is here for a bloody stool, observation. We consulted Gastroenterology, Dr. Selby. Hopefully he will do well. Art Espinosa DO
[2019-02-05] MEDS: Collagenase 250 Units/gm Ointment(30 gm) TOP SCH (23:00)
[2019-02-05] MEDS: Silver Sulfadiazine 1% Cream (25 gm) TP SCH (23:00)
[2019-02-06 06:39] LABS: HEMOGLOBIN 10.7 g/dL (14.0-18.0); MEAN CELL VOLUME 90.8 fl (80.0-105.0); MEAN CORPUSCULAR HEMOGLOBIN 28.8 pg (25.0-35.0); MEAN CORPUSCULAR HGB CONC 31.8 g/dl (31.0-37.0); MEAN PLATELET VOLUME 8.8 fl (7.0-11.0); RBC 3.71 10^6/uL (3.5-6.1); RED CELL DISTRIBUTION WIDTH 19.1 % (11.5-14.5)
[2019-02-06 07:08] LABS: ALB/GLOB RATIO 0.8 (1.1-1.8); ALBUMIN 2.4 g/dL (3.0-4.8); ALT/SGPT 20 U/L (7-56); AST/SGOT 24 U/L (17-59); BLOOD UREA NITROGEN 26 mg/dL (7-21); CALCIUM 8.1 mg/dL (8.4-10.5); GFR NON-AFRICAN AMERICAN > 60
[2019-02-06] MEDS ORDERED: Potassium Chloride 20 mEq/15 ml LIQ UD PO ONE (09:00)
[2019-02-06] MEDS: POLYETHYLENE GLYCOL 3350 17 GM/Dose PACKET PEG SCH (09:43)
--- NOTE | 2019-02-06 13:16 | CP.PCM.PCO ---
Physician Communication Note - Physician Communication Note Physician Communication Note: Pt. for flex sigmoidoscopy,cleared for dc if flex sig normal per pmd
[2019-02-06] MEDS: Sodium Chloride 0.45% 1,000 ML IV SCH (14:27)
--- NOTE | 2019-02-06 15:00 | US ---
HISTORY: Arm pain and swelling. Evaluate for deep venous thrombosis. PHYSICIAN(S): Luisito Tierney MD. FINDINGS: The exam is somewhat limited by edema The visualized internal jugular veins are sonographically normal and compressible. No evidence of obstruction or thrombus this is seen. The visualized segments of the subclavian veins are patent with normal waveforms. No sonographic evidence of obstruction or thrombosis is seen. The visualized deep venous systems of both upper extremities proximally are sonographically normal and compressible. IMPRESSION: 1. No sonographic evidence for deep venous thrombosis in the visualized segments of both upper strategies.
[2019-02-06] MEDS ORDERED: Sodium Chloride 0.45% 1,000 ML IV SCH (20:00)
[2019-02-06] MEDS: Silver Sulfadiazine 1% Cream (25 gm) TP SCH (21:37)
[2019-02-06] MEDS: Collagenase 250 Units/gm Ointment(30 gm) TOP SCH (21:37)
--- NOTE | 2019-02-07 01:45 | DS ---
HOSPITAL COURSE: He is here for a bloody bowel movement yesterday at the [facility], only one time so for the past 24 to 36 hours. He is doing well. He is going to go for flexible sigmoidoscopy this morning with GI. He has got some gaseous distention. He is in observation right now. I am hoping we can possibly discharge him later today back to the [facility]. He is comfortable in bed, back to his baseline. He gave him the thumbs up sign. PHYSICAL EXAMINATION: VITAL SIGNS: Temperature 98, pulse 66, blood pressure 136/71, respiratory rate 18, and O2 sat 90% on room air. HEENT: Head is atraumatic and normocephalic. HEART: Regular rate. LUNGS: Decreased breath sounds, but clear. ABDOMEN: Mildly distended. Soft. Positive bowel sounds. No guarding, no rebound and no CVA tenderness. EXTREMITIES: He has no edema. The right side is weak and paralyzed with old stroke. MEDICATIONS: He is on Xopenex, IV fluids, Silvadene, Santyl, ProAmatine and MiraLax. LABORATORY DATA: Sodium 136, potassium 3.2 I gave him potassium replacement, BUN 26, creatinine 0.5, GFR is greater than 60, sugar 78, calcium 8.1, and total bili is 0.4. AST 24, ALT 20, alk phos 52. INR is 1.13. White count 8, hemoglobin 10.7, hematocrit 32.7 and platelets 208 . DISCHARGE PLANNING: I am hoping that after the flexible sigmoidoscopy this morning with GI, he will do okay. His hemoglobin held up strong. He on IV fluids and hopefully be discharged later today back to the [facility] as per GI for GI bleed. Art Espinosa DO MTDD
[2019-02-07 07:09] LABS: HEMOGLOBIN 12.1 g/dL (14.0-18.0); MEAN CELL VOLUME 91.8 fl (80.0-105.0); MEAN CORPUSCULAR HGB CONC 31.6 g/dl (31.0-37.0); RBC 4.17 10^6/uL (3.5-6.1); RED CELL DISTRIBUTION WIDTH 18.8 % (11.5-14.5); WHITE BLOOD COUNT 8.5 10^3/uL (4.5-11.0)
[2019-02-07 07:23] LABS: ALB/GLOB RATIO 0.8 (1.1-1.8); ALBUMIN 2.8 g/dL (3.0-4.8); ALT/SGPT 16 U/L (7-56); AST/SGOT 29 U/L (17-59); BLOOD UREA NITROGEN 22 mg/dL (7-21); CALCIUM 8.2 mg/dL (8.4-10.5); GFR NON-AFRICAN AMERICAN > 60
[2019-02-07 08:15] VITALS: BP 153/92; PULSE 90; RESP 18; TEMP 97.4; O2SAT 100
[2019-02-07] MEDS: POLYETHYLENE GLYCOL 3350 17 GM/Dose PACKET PEG SCH (09:15)
--- NOTE | 2019-02-07 11:35 | CP.PCM.PN ---
<Misael,Maryana - Last Filed: 02/07/19 11:32> Subjective - Date & Time of Evaluation Date of Evaluation: 02/07/19 Time of Evaluation: 07:00 - Subjective Subjective: GI Fellow PGY5 Progress Note Pt seen and evaluated at bedside, pt nonverbal. Per nursing no BM ovenright, no rectal bleeding. ROS: A 12pt ROS was negative except as above. Objective - Vital Signs/Intake and Output Vital Signs (last 24 hours): Temp Pulse Resp BP Pulse Ox 97.4 F L 90 18 153/92 H 100 02/07/19 08:15 02/07/19 08:15 02/07/19 08:15 02/07/19 08:15 02/07/19 08:15 Intake and Output: 02/07/19 02/07/19 06:59 18:59 Output Total 500 Balance -500 - Medications Medications: Current Medications Collagenase (Santyl) 0 gm [facility] Last Admin: 02/06/19 21:37 Dose: 2 appl Sodium Chloride (Sodium Chloride 0.45%) 1,000 mls @ 40 mls/hr IV .Q24H [facility] Lactulose (Enulose) 20 gm PO DAILY [facility] Last Admin: 02/07/19 09:15 Dose: 20 gm Levalbuterol HCl (Xopenex) 1.25 mg INH Q6H PRN PRN Reason: Shortness of Breath Midodrine (Proamatine) 10 mg PEG TID [facility] Last Admin: 02/07/19 09:15 Dose: 10 mg Polyethylene Glycol (Miralax) 17 gm PEG DAILY [facility] Last Admin: 02/07/19 09:15 Dose: 17 gm Silver Sulfadiazine (Silvadene 1% 25 Gm) 0 gm TP HS [facility] Last Admin: 02/06/19 21:37 Dose: 25 gm - Labs Labs: 02/07/19 05:00 02/07/19 05:00 PT 12.8 SECONDS (9.4-12.5) H 02/05/19 07:40 INR 1.13 02/05/19 07:40 APTT 27.4 Seconds (26.9-38.3) 02/05/19 07:40 - Constitutional Appears: Non-toxic, No Acute Distress, Confused, Cachectic, Chronically Ill - Head Exam Head Exam: ATRAUMATIC, NORMAL INSPECTION, NORMOCEPHALIC - Eye Exam Eye Exam: EOMI, PERRL - ENT Exam ENT Exam: Mucous Membranes Dry - Respiratory Exam Respiratory Exam: Decreased Breath Sounds - Cardiovascular Exam Cardiovascular Exam: REGULAR RHYTHM, RRR, +S1, +S2 - GI/Abdominal Exam GI & Abdominal Exam: Soft, Normal Bowel Sounds. 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, atrial fibrillation, CAD, COPD, seizures, BPH, hypothyroidism, sacral ulcers who was sent from [place] for dark stool and hematochezia -Melena, suspect stercoral ulceration given known fecal impaction -H/H stable -s/p Flex sig with sigmoid and descending colon ulcerated mucosa -Colonic distention on imaging->Sigmoid Volvulus s/p flex sig decompression -Chronic idiopathic constipation -Continue bowel regimen to avoid constipation -Miralalx daily -Dysphagia s/p PEG, continue TF -Dementia -Will continue to follow pt closely <Bal,Kovil V - Last Filed: 02/07/19 22:16> Objective - Vital Signs/Intake and Output Vital Signs (last 24 hours): Temp Pulse Resp BP Pulse Ox 97.4 F L 90 18 153/92 H 100 02/07/19 08:15 02/07/19 08:15 02/07/19 08:15 02/07/19 08:15 02/07/19 08:15 - Labs Labs: 02/07/19 05:00 02/07/19 05:00 PT 12.8 SECONDS (9.4-12.5) H 02/05/19 07:40 INR 1.13 02/05/19 07:40 APTT 27.4 Seconds (26.9-38.3) 02/05/19 07:40 Attending/Attestation - Attestation I have personally seen and examined this patient.: Yes I have fully participated in the care of the patient.: Yes I have reviewed all pertinent clinical information, including history, physical exam and plan: Yes Notes (Text): there is an addendum to the GI progress report dictated by the GI fellow. Discussed with the patient's daughter he before. Patient has significant constipation. Stercoral ulceration in the rectum sigmoid colon descending colon. Patient had megacolon and a partial volvulus which has been reduced. The goal is to avoid constipation. Patient may benefit from the lactulose tit rating the dose from 30 mg twice a day once a day to once a day. Patient was on MiraLAX in the past but did not work well. Can restart the G-tube feeding 02/07/19 22:14
--- NOTE | 2019-02-08 01:13 | DS ---
HOSPITAL COURSE: He did well yesterday with his flexible sigmoidoscopy with the GI doctor. He came in with acute massive GI bleed, went straight to flexible sigmoidoscopy with GI. They decompressed his belly. He is comfortable at this time. Family wants to take him back to [facility] so he could be transferred to another facility. He is on IV fluids, Enulose, MiraLax, potassium replacement, ProAmatine, Santyl, Silvadene cream and Xopenex. PHYSICAL EXAMINATION: GENERAL: He is resting comfortably in bed right now. He is alert. He is looking at me give me the thumbs up sign, almost a smile, back to his baseline. 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 He has through a lot with his abdomen with constipation and colonic distention, but he is doing much better now. VITAL SIGNS: Temperature 97.4, pulse 90, blood pressure 102/69, respiratory rate 18, O2 sat 100% on room air. HEENT: Head is atraumatic and normocephalic. HEART: Regular rate. LUNGS: Decreased breath sounds. ABDOMEN: Soft and nontender. Positive bowel sounds. EXTREMITIES: No edema. DISCHARGE INSTRUCTIONS: He will go on the same medications and same treatment he is doing here. LABORATORY DATA: Sodium 137, potassium 3.5 and it is replaced, BUN is 22, creatinine 0.6. GFR is greater than 60, sugar is 53, calcium is 8.2, total bilirubin is 0.6. AST is 29, ALT is 16, alkaline phosphatase 59, total protein is 6.1. White count is 8.5, hemoglobin 12.1, hematocrit 38.3, platelets are 223. DISCHARGE PLAN: We have go the okay from GI that he could be transferred out, he will discharged, then the family will have a plan to change him to a different facility closer to the family members. Art Espinosa DO
== END 2019-02-07 14:46 | DRG 344 ==
LOC: ED 06:19 → INTOOBSV 09:48 → ERH 09:48 → 3RNO 12:11 → OBSVTOIN 02-06 20:23
PROVIDERS: ADMIT Family Medicine; ATTEND Family Medicine
PROC: 0D9N8ZZ Drainage of Sigmoid Colon, Via Natural or Artificial Opening Endoscopic (ICD-10-PCS; principal; 2019-02-06 14:15)
DX: K92.2 Gastrointestinal hemorrhage, unspecified (principal); K56.2 Volvulus; I69.351 Hemiplegia and hemiparesis following cerebral infarction affecting right dominant side; K59.39 Other megacolon; K62.6 Ulcer of anus and rectum; E03.9 Hypothyroidism, unspecified; F03.90 Unspecified dementia, unspecified severity, without behavioral disturbance, psychotic disturbance, mood disturbance, and anxiety; I10 Essential (primary) hypertension; I25.10 Atherosclerotic heart disease of native coronary artery without angina pectoris; I45.10 Unspecified right bundle-branch block; I48.91 Unspecified atrial fibrillation; J44.9 Chronic obstructive pulmonary disease, unspecified; K59.04 Chronic idiopathic constipation; N40.0 Benign prostatic hyperplasia without lower urinary tract symptoms; R13.10 Dysphagia, unspecified; Z93.1 Gastrostomy status; L89.159 Pressure ulcer of sacral region, unspecified stage